=== PATIENT | female | born 1945 | race Two or more races ===

== ENCOUNTER 2019-03-17 00:16 | Inpatient (IN) | payer OTHER, BC ==
--- NOTE | 2019-03-17 01:53 | PDOC ---
Attending Attestation - Resident Resident Name: Mercy Samuel - ED Attending Attestation I have performed the following: I have examined & evaluated the patient, The case was reviewed & discussed with the resident, I agree w/resident's findings & plan - HPI HPI: 03/17/19 05:47 74-year-old female with altered mental status according to family. There is no known history of trauma. No associated fever. - Physicial Exam PE: 03/17/19 05:47 agree with residents exam - Medical Decision Making 03/17/19 05:48 74-year-old female with altered mental status Patient has an elevated troponin with no acute ST elevations on EKG CT scan of the brain shows multiple abnormal areas Neurology and neurosurgery are requesting an MRI to further evaluate At this time it is not safe to administer aspirin or anticoagulation due to possible hemorrhagic focus Patient remains alert and awake Will admit for further evaluation
[2019-03-17 02:08] LABS: HYALINE CASTS 0 /lpf (0-8); URINE APPEARANCE CLEAR; URINE BACTERIA 2.9 /hpf (NEGATIVE); URINE BILIRUBIN NEGATIVE (NEGATIVE); URINE COLOR YELLOW; URINE GLUCOSE (UA) NEGATIVE (NEGATIVE); URINE KETONE NEGATIVE (NEGATIVE); URINE LEUK ESTERASE TRACE (NEGATIVE); URINE NITRITE NEGATIVE (NEGATIVE); URINE PROTEIN NEGATIVE (NEGATIVE); URINE RBC 5 /hpf (0-4); URINE UROBILINOGEN 0.2 mg/dL (0.2-1.0); URINE WBC 4 /hpf (0-5)
[2019-03-17 02:29] LABS: BASO % 1.4 % (0-2.0); EOS % 2.6 % (0-4.5); HEMATOCRIT 39.3 % (32.4-45.2); LYMPH % 18.2 % (8-40); MCH 30.2 pg (25.7-33.7); MEAN CELL VOLUME 91.4 fl (80-96); MEAN PLT VOLUME 8.3 fl (7.5-11.1); NEUT % 66.8 % (42.8-82.8); PLATELET COUNT 141 K/MM3 (134-434); RDW 13.5 % (11.6-15.6); WHITE BLOOD COUNT 9.3 K/mm3 (4.0-10.0)
[2019-03-17] MEDS ORDERED: SODIUM CHLORIDE 1,000 ML IV STA (02:33)
--- NOTE | 2019-03-17 02:33 | PDOC ---
History of Present Illness - General Chief Complaint: Altered Mental Status Stated Complaint: WEAKNESS Time Seen by Provider: 03/17/19 01:20 History Source: Patient, Family (sister) Exam Limitations: No Limitations - History of Present Illness Initial Comments: 03/17/19 02:29 74yo F with no significant PMH brought to ED by daughter for episode of confusion. Per sister, pt was at home and walked outside and stated that her phone was not working when it was. She also forgot how to make coffee when she usually makes it every morning. Sister states that pt has not been eating as much as she used to for the past few days. Pt states that she has lost her appetite recently. Has not had a bowel movement in 4 days. She has been having a dry cough and was given a 10d course of antibiotic that pt cannot recall the name of and she takes Zyrtec daily along with 81mg ASA, Vit D and fish oil. Denies fevers, chills, chest pain, sob, changes in vision, numbness/tingling, difficulty speaking, syncope, travel, sick contacts, urinary symptoms, flank pain, abdominal pain, n/v/d, headaches. PMD: Luz Marina PMH: see hpi PSH: none Meds: zyrtec, asa, fish oil, vit d Allergies: nkda Social: denies NIH Stroke Scale - Last Known Well Date/Time & Onset Date Last Known Well: 03/13/19 (unknown) Time Last Known Well: 00:00 (unknown) - Initial Evaluation Level of consciousness: Alert Ask patient the month and their age: Answers both correctly Ask patient to open & close eyes; make fist and let go: Obeys both correctly Best gaze (horizontal eye movement): Normal Visual field testing: Partial hemianopia Facial paresis (Show teeth/raise eyebrows/close eyes tight): Normal symmetrical movement Motor Function: Left Arm: Normal Motor Function: Right Arm: Normal (extends arm 90 (or 45) degrees for 10 seconds without drift Motor Function: Left Leg: Normal (extends leg 30 degrees for 5 seconds without drift) Motor Function: Right Leg: Normal (extends leg 30 degrees for 5 seconds without drift) Limb Ataxia: Present in one limb Sensory(Use pinprick test arms,legs,trunk,face/side to side): Normal Best language (Describe picture, name items, read sentences): No Aphasia Dysarthria (read several words): Normal articulation Extinction and Inattention: Inattention or extinction bilaterally to one of the sensory modalities - Total Score NIH Stroke Scale Score: 3 Past History - Past Medical History Allergies/Adverse Reactions: Allergies Allergy/AdvReac Type Severity Reaction Status Date / Time Penicillins Allergy Verified 03/17/19 02:45 Home Medications: Ambulatory Orders Aspirin [ASA -] 81 mg PO DAILY 03/17/19 COPD: No - Suicide/Smoking/Psychosocial Hx Smoking History: Unknown if ever smoked Review of Systems - Review of Systems Constitutional: Yes: Loss of Appetite HEENTM: No: Eye Pain, Blurred Vision, Double Vision, Difficulty Swallowing Respiratory: No: Cough, Shortness of Breath Cardiac (ROS): No: Chest Pain, Lightheadedness, Palpitations, Syncope ABD/GI: Yes: Poor Appetite. No: Constipated, Diarrhea, Nausea, Vomiting : No: Symptoms Reported Musculoskeletal: No: Symptoms Reported Integumentary: No: Symptoms Reported Neurological: Yes: Other (forgetfulness, confusion). No: Headache, Numbness, Paresthesia, Tingling, Unsteady Gait, Ataxia, Dizziness *Physical Exam - Vital Signs Last Vital Signs Temp Pulse Resp BP Pulse Ox 98.1 F 107 H 18 135/88 100 03/17/19 01:17 03/17/19 01:17 03/17/19 01:17 03/17/19 01:03/17/19 01:17 - Physical Exam General Appearance: Yes: Nourished, Appropriately Dressed. No: Apparent Distress HEENT: positive: EOMI, MYKE, Normal ENT Inspection, Other (L peripheral vision impaired) Neck: positive: Trachea midline, Supple. negative: Carotid bruit Respiratory/Chest: positive: Lungs Clear, Normal Breath Sounds Cardiovascular: positive: Regular Rhythm, Regular Rate, S1, S2. negative: Edema , JVD, Murmur Gastrointestinal/Abdominal: positive: Normal Bowel Sounds, Soft. negative: Tender Musculoskeletal: negative: CVA Tenderness Extremity: positive: Normal Capillary Refill, Normal Inspection, Pelvis Stable. 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 negative: Facial Droop, Sensory Deficit, Disoriented ED Treatment Course - LABORATORY CBC & Chemistry Diagram: 03/17/19 01:25 03/17/19 01:25 - ADDITIONAL ORDERS Additional order review: Laboratory Results 03/17/19 01:50 Urine Color Yellow Urine Appearance Clear Urine pH 6.0 Ur Specific [place] 1.007 L Urine Protein Negative Urine Glucose (UA) Negative Urine Ketones Negative Urine Blood 1+ H Urine Nitrite Negative Urine Bilirubin Negative Urine Urobilinogen 0.2 Ur Leukocyte Esterase Trace Urine WBC (Auto) 4 Urine RBC (Auto) 5 Urine Casts (Auto) 0 U Epithel Cells (Auto) 1.0 Urine Bacteria (Auto) 2.9 - RADIOLOGY Radiology Studies Ordered: Category Date Time Status HEAD CT WITHOUT CONTRAST [CT] Stat CT Scan 03/17/19 02:24 Ordered CHEST X-RAY PORTABLE* [RAD] Stat Radiology 03/17/19 02:24 Ordered Medical Decision Making - Medical Decision Making 03/17/19 02:32 74yo F with no significant PMH brought to ED by daughter for episode of confusion. Per daughter, pt was at home and walked outside and stated that her phone was not working when it was. She also forgot how to make coffee when she usually makes it every morning. Daughter states that pt has not been eating as much as she used to for the past few days. Pt states that she has lost her appetite recently. Has not had a bowel movement in 4 days. She has been having a dry cough and was given a 10d course of antibiotic that pt cannot recall the name of and she takes Zyrtec daily along with 81mg ASA, Vit D and fish oil. Denies fevers, chills, chest pain, sob, changes in vision, numbness/tingling, difficulty speaking, syncope, travel, sick contacts, urinary symptoms, flank pain, abdominal pain, n/v/d, headaches. Vitals: tachycardia PE: benign ddx includes but not limited to hypoglycemia, electrolyte/metabolic abnormality , malignancy/mass, encephalopathy, uti, pna -basic labs, trop -ekg, cxr, ct head -iv fluids 03/17/19 03:21 trop 1.8 EKG: nsr at 99. QTc 487. Q wave in I, II, aVL, aVF. TWI III. No SILVER or depressions CT head read pending. if negative for bleed, will give ASA. Will get rpt trop 03/17/19 03:28 CT: The ventricular system is midline and nondilated. The sulcal pattern is normal for the patient's age. There are geographic regions of edema in the right temporal lobe , right parietal lobe and left parietal lobe. Multiple acute to subacute infarcts or underlying lesions are considered. There is vague density in the posterior right parietal lobe, possibly hemorrhagic lesion but there is no focal hematoma. There is no extra-axial fluid collection or mass effect no skull fracture or skull lesion is identified. The visualized paranasal sinuses and mastoid air cells are clear. Will consult cardiology and neurology and neurosurgery 03/17/19 05:[address] Raines who recommended MRI w and w/o contrast. Same recommendation by neurology with head and neck mra. due to lesions possibly being hemorrhagic, will hold off on AC. Dr. Black recommends MRI and MRA Per cardiology, hold off on AC Will admit ICU *DC/Admit/Observation/Transfer Diagnosis at time of Disposition: Brain lesion - Discharge Dispostion Condition at time of disposition: Stable - Referrals - Patient Instructions - Post Discharge Activity
[2019-03-17 03:00] LABS: BILIRUBIN,TOTAL 0.5 mg/dL (0.2-1); BLOOD UREA NITROGEN 12.2 mg/dL (7-18); CALCIUM 8.4 mg/dL (8.5-10.1); CREATININE 0.8 mg/dL (0.55-1.3); MAGNESIUM 2.5 mg/dL (1.8-2.4); POTASSIUM 4.7 mmol/L (3.5-5.1); TOT PROT 7.4 g/dl (6.4-8.2)
--- NOTE | 2019-03-17 06:27 | HP ---
CHIEF COMPLAINT: AMS PCP: HISTORY OF PRESENT ILLNESS: Ms. Martinez is a 74yo female with hx of arrhythmia presents with AMS x 4 days. Her sister reports first noticing a change when talking to her on the phone 4 days ago. She said she was "acting weird." She was not having aphasia. The sister said she later had difficulty making coffee that she normally makes every morning. Per ED note, she had a decrease in appetite as well. She reports having bilateral upper arm pain intermittently and generalized weakness. She denies fever, chills, chest pain, headache, and vomiting. She reports seeing a doctor in [facility] for an irregular heart beat but is not currently being treated. She is not anti-coagulated. ER course was notable for: (1) EKG (2) Head CT Recent Travel: unknown PAST MEDICAL HISTORY: arrhythmia, unspecified PAST SURGICAL HISTORY: unknown Social History: Smoking: no Alcohol: no Drugs: no Family History: unknown Allergies Penicillins Allergy (Verified 03/17/19 02:45) HOME MEDICATIONS: REVIEW OF SYSTEMS CONSTITUTIONAL: Present: generalized weakness Absent: fever, chills, diaphoresis, malaise, loss of appetite, weight change HEENT: Present: visual changes Absent: rhinorrhea, nasal congestion CARDIOVASCULAR: Absent: chest pain, syncope, palpitations RESPIRATORY: Reports: shortness of breath Absent: cough GASTROINTESTINAL: Absent: nausea, vomiting GENITOURINARY: Absent: dysuria MUSCULOSKELETAL: present: myalgias Absent: arthralgia, joint swelling, back pain, neck pain SKIN: Absent: rash, itching, pallor HEMATOLOGIC/IMMUNOLOGIC: Absent: easy bleeding, easy bruising, lymphadenopathy, frequent infections ENDOCRINE: Absent: unexplained weight gain, unexplained weight loss, heat intolerance, cold intolerance NEUROLOGIC: Present: mental status changes Absent: headache, paresthesias, dizziness, unsteady gait, seizure, bladder or bowel incontinence PSYCHIATRIC: Absent: anxiety, depression, suicidal or homicidal ideation, hallucinations. PHYSICAL EXAMINATION Vital Signs - 24 hr 03/17/19 03/17/19 01:17 04:09 Temperature 98.1 F Pulse Rate 107 H Pulse Rate [ 98 H Apical] Respiratory 18 18 Rate Blood Pressure 135/88 Blood Pressure 144/87 [Right Arm] O2 Sat by Pulse 100 98 Oximetry (%) GENERAL: Awake, alert, and oriented to person, in no acute distress. HEAD: Normal with no signs of trauma. EYES: Pupils equal, round and reactive to light, extraocular movements intact, sclera anicteric, conjunctiva clear. No lid lag. EARS, NOSE, THROAT: Ears normal, nares patent. Moist mucous membranes. NECK: Normal range of motion, supple without masses. LUNGS: No wheezes, and no crackles. No accessory muscle use. HEART: regular rate, moderate systolic murmur ABDOMEN: non-distended MUSCULOSKELETAL: Normal range of motion at all joints. UPPER EXTREMITIES: warm, well-perfused. No cyanosis. No peripheral edema. LOWER EXTREMITIES: warm, well-perfused NEUROLOGICAL: partial left side hemiplegia, +5 strength UE and LE bilaterally PSYCHIATRIC: Cooperative. Good eye contact. Appropriate mood and affect. SKIN: Warm, dry, normal turgor, no rashes or lesions noted, normal capillary refill. Laboratory Results - last 24 hr 03/17/19 03/17/19 03/17/19 01:25 01:25 01:25 WBC 9.3 RBC 4.30 Hgb 13.0 Hct 39.3 MCV 91.4 MCH 30.2 MCHC 33.0 RDW 13.5 Plt Count 141 MPV 8.3 Absolute Neuts (auto) 6.2 Neutrophils % 66.8 Lymphocytes % 18.2 Monocytes % 11.0 H Eosinophils % 2.6 Basophils % 1.4 Nucleated RBC % 0 Sodium 139 Potassium 4.7 Chloride 106 Carbon Dioxide 26 Anion Gap 7 L BUN 12.2 Creatinine 0.8 Est GFR (CKD-EPI)AfAm 85.37 Est GFR (CKD-EPI)NonAf 73.65 Random Glucose 96 Calcium 8.4 L Magnesium 2.5 H Total Bilirubin 0.5 AST 53 H ALT 32 Alkaline Phosphatase 319 H Troponin I 1.80 H* Total Protein 7.4 Albumin 3.0 L Urine Color Urine Appearance Urine pH Ur Specific [place] Urine Protein Urine Glucose (UA) Urine Ketones Urine Blood Urine Nitrite Urine Bilirubin Urine Urobilinogen Ur Leukocyte Esterase Urine WBC (Auto) Urine RBC (Auto) Urine Casts (Auto) U Epithel Cells (Auto) Urine Bacteria (Auto) 03/17/19 03/17/19 01:50 05:22 WBC RBC Hgb Hct MCV MCH MCHC RDW Plt Count MPV Absolute Neuts (auto) Neutrophils % Lymphocytes % Monocytes % Eosinophils % Basophils % Nucleated RBC % Sodium Potassium Chloride Carbon Dioxide Anion Gap BUN Creatinine Est GFR (CKD-EPI)AfAm Est GFR (CKD-EPI)NonAf Random Glucose Calcium Magnesium Total Bilirubin AST ALT Alkaline Phosphatase Troponin I 1.73 H* Total Protein Albumin Urine Color Yellow Urine Appearance Clear Urine pH 6.0 Ur Specific [place] 1.007 L Urine Protein Negative Urine Glucose (UA) Negative Urine Ketones Negative Urine Blood 1+ H Urine Nitrite Negative Urine Bilirubin Negative Urine Urobilinogen 0.2 Ur Leukocyte Esterase Trace Urine WBC (Auto) 4 Urine RBC (Auto) 5 Urine Casts (Auto) 0 U Epithel Cells (Auto) 1.0 Urine Bacteria (Auto) 2.9 ASSESSMENT/PLAN: The patient is a 74yo female with PMH for arrthymia who presents with AMS that started 4 days ago. She is having some difficulty with orientation, not being able to recall year. She denies any known head injury or chest pain. Troponins are elevated 1.8-->1.73. CT showed bilateral infarct acute to subacute and left posterior frontal lobe hemorrhage. MRI STAT to complete imaging. Pt likely has a -fib as recalled by "irregular heart beat." This could have sent clots from LA to brain causing ischemia and then could have hemorrhaged because of small focus. She also has a systolic murmur which could be a valvular abnormality. Will get echo to confirm a-fib or other abnormality. -MRI -echo -continue trending trops -TSH -Mg -CBC -CMP -seizure precautions -vital signs every hour -atorvastatin 80mg -no anti-coagulation, no ASA -SCDs DVT prophylaxis -consult neuro -consult neurosurgery -consult cards -admit ICU FEN adjust fluids if CMP indicates nutrition will be assessed later Visit type - Emergency Visit Emergency Visit: Yes ED Registration Date: 03/17/19 Care time: The patient presented to the Emergency Department on the above date and was hospitalized for further evaluation of their emergent condition. - New Patient This patient is new to me today: Yes Date on this admission: 03/17/19 - Critical Care Critical Care patient: No ATTENDING PHYSICIAN STATEMENT I saw and evaluated the patient. I reviewed the resident's note and discussed the case with the resident. I agree with the resident's findings and plan as documented. SUBJECTIVE: OBJECTIVE: ASSESSMENT AND PLAN:
[2019-03-17] MEDS ORDERED: ATORVASTATIN CA 80 MG TABLET (FP) PO ONE (06:31)
[2019-03-17] MEDS ORDERED: ATORVASTATIN CA 40 MG TABLET (FP) ONE (06:34)
--- NOTE | 2019-03-17 06:39 | PN ---
Teaching Attending Note Name of Resident: Dolly Hassan ATTENDING PHYSICIAN STATEMENT I saw and evaluated the patient. I reviewed the resident's note and discussed the case with the resident. I agree with the resident's findings and plan as documented. SUBJECTIVE: Seen and examined; please see resident note for HPI/ROS/PMH/PSH/FH/SH. Briefly , this is a 74 y/o female presenting to the ER with weakness, tiredness, confusion, and unsteady gait since at least thursday. Found to have bilateral acute to subacute infarct vs. lesions with a ? small hemorrhagic focus in the posterior R-frontal lobe. She is also found to have a positive troponin; denies cardiac symptoms. ER spoke with neuro, nsgy, and CV. She hasn't been admitted here before; daughter tells me she used to see a CV in [facility] for an 'irregular HR' and she does have a systolic murmur giving rise to question of valvular Afib? Not on AC. OBJECTIVE: NAD, AAOx2 (but will remember if prompted), resting in bed CN2-12 wnl, L-sided neglect noted with normal sensory and 5/5 strength all extremities. Word-finding difficulties and recall difficulties. Still alert and keenly responsive. RRR s1/2, moderate systolic murmur Lungs CTAB, w/ sym exp NT ND +BS Normal mood, appropriate behavior EKG reviewed; q-waves, nonspecific ST-T changes noted CT head prelim report discussed Labs reviewed in depth. ASSESSMENT AND PLAN: Patient presents with confusion, odd behavior found to have b/l acute to subacute infarcts with ?hemorrhagic focus alongside + troponin,. # B/L Acute/Subacute CVA +/- hemorrhagic focus # Troponemia # Systolic Murmur # Elevated Alk Phos -Will admit to ICU; hourly neuro checks and seizure precautions. Checking brain /neck MRI/MRA, A1c, TSH. Echo pending. Avoiding all AC including ASA and chemical DVT px. 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 Given the murmur and history of 'irregular HR' per daughter I wonder if she had afib giving rise to the b/l infarcts. One could have converted to hemorrhagic given the small focus, but of course will defer to neurology/nsgy. Murmur noted; could be valvular? Giving statin. -ER spoke to CV; q-waves noted in inferior leads. Trend troponin, followup CV recs. No AC at this time. Serial EKG and monitor on telemetry. Check echo for wmas. No ac given hemorrhagic. -Check GGT given alk phos; if elevated recommend RUQ u/s. Full Code Consultants: PCCM, CV, Neuro, Nsgy Thank you, Dr. Raza, for allowing Jen to take part in the ongoing management of your patient. Critical Care time 60 mins.
--- NOTE | 2019-03-17 08:23 | CON.NEURO ---
Consult - History of Present Illness History of Present Illness: 74yo female with hx of arrhythmia presents with AMS x 4 days. Her sister reports first noticing a change when talking to her on the phone 4 days ago. She said she was "acting weird." She was not having aphasia. The sister said she later had difficulty making coffee that she normally makes every morning. Per ED note, she had a decrease in appetite as well. She reports having bilateral upper arm pain intermittently and generalized weakness. She denies fever, chills, chest pain, headache, and vomiting. She reports seeing a doctor in [facility] for an irregular heart beat but is not currently being treated. She is not anti-coagulated. CH XRY -P CT HD : prelim BL P/O and R cerebellar hypoattenutaion suggestion of acute subacute infarction vs less likely vasogenic edema--await official MRI : Impression. Subacute enhancing infarct superior aspect of the right cerebellum. Acute cortical infarcts are observed in the right temporal temporal lobe, occipital lobe, to a lesser degree, left parietal lobe, left posterior temporal lobe, occipital lobe with restrictive changes on diffusion weighted weighted images, corresponding low signal intensity on the ADC, increased signal intensity of the strokes on the T2, FLAIR [place] - different vascular territories. Clinically correlate for vasculitis. MRA Impression. There is no evidence of aneurysm, vascular malformation or flow limiting stenosis. Impression. Patent common, internal, external carotid arteries, vertebral arteries, forming patent basilar artery.. Normal bifurcation of the common carotid arteries no stenotic lesions are seen. - Smoking History Smoking history: Unknown if ever smoked Home Medications - Allergies Allergies/Adverse Reactions: Allergies Allergy/AdvReac Type Severity Reaction Status Date / Time Penicillins Allergy Verified 03/17/19 02:45 - Home Medications Home Medications: Ambulatory Orders Aspirin [ASA -] 81 mg PO DAILY 03/17/19 Physical Exam-Neuro Vital Signs: Vital Signs Temperature 98.2 F 03/17/19 07:22 Pulse Rate 88 03/17/19 07:22 Respiratory Rate 16 03/17/19 07:22 Blood Pressure 119/75 03/17/19 07:22 O2 Sat by Pulse Oximetry (%) 98 03/17/19 07:22 - Neuro Exam Level Of Consciousness: Yes: Alert (awake, alert, Left sided field cut, left sided neglect, mild left UE drift , ) NIH Stroke Scale - Last Known Well Date/Time & Onset Date Last Known Well: 03/13/19 - Initial Evaluation Level of consciousness: Alert Ask patient the month and their age: Answers both correctly Ask patient to open & close eyes; make fist and let go: Obeys both correctly Best gaze (horizontal eye movement): Normal Visual field testing: Complete hemianopia Facial paresis (Show teeth/raise eyebrows/close eyes tight): Normal symmetrical movement Motor Function: Left Arm: Drift Motor Function: Right Arm: Normal (extends arm 90 (or 45) degrees for 10 seconds without drift Motor Function: Left Leg: Normal (extends leg 30 degrees for 5 seconds without drift) Motor Function: Right Leg: Normal (extends leg 30 degrees for 5 seconds without drift) Limb Ataxia: No ataxia Sensory(Use pinprick test arms,legs,trunk,face/side to side): Mild to moderate decrease in sensation Best language (Describe picture, name items, read sentences): No Aphasia Dysarthria (read several words): Normal articulation Extinction and Inattention: Inattention or extinction bilaterally to one of the sensory modalities - Total Score NIH Stroke Scale Score: 5 Imaging - Results Cat Scan: Image Reviewed MRI: Report Reviewed, Image Reviewed Problem List - Problems (1) Cerebrovascular accident (CVA) Code(s): I63.9 - CEREBRAL INFARCTION, UNSPECIFIED (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 Her sister reports first noticing a change when talking to her on the phone 4 days ago. She said she was "acting weird." She was not having aphasia. The sister said she later had difficulty making coffee that she normally makes every morning. Per ED note, she had a decrease in appetite as well. She reports having bilateral upper arm pain intermittently and generalized weakness. She denies fever, chills, chest pain, headache, and vomiting. She reports seeing a doctor in [facility] for an irregular heart beat but is not currently being treated. She is not anti-coagulated. CH XRY -P CT HD : prelim BL P/O and R cerebellar hypoattenutaion suggestion of acute subacute infarction vs less likely vasogenic edema--await official MRI : Impression. Subacute enhancing infarct superior aspect of the right cerebellum. Acute cortical infarcts are observed in the right temporal temporal lobe, occipital lobe, to a lesser degree, left parietal lobe, left posterior temporal lobe, occipital lobe with restrictive changes on diffusion weighted weighted images, corresponding low signal intensity on the ADC, increased signal intensity of the strokes on the T2, FLAIR [place] - different vascular territories. Clinically correlate for vasculitis. MRA Impression. There is no evidence of aneurysm, vascular malformation or flow limiting stenosis. Impression. Patent common, internal, external carotid arteries, vertebral arteries, forming patent basilar artery.. Normal bifurcation of the common carotid arteries no stenotic lesions are seen. 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
[2019-03-17 08:31] LABS: HEMOGLOBIN 12.4 GM/dL (10.7-15.3); MCH 30.7 pg (25.7-33.7); MCHC 33.5 g/dl (32.0-36.0); MEAN CELL VOLUME 91.4 fl (80-96); MEAN PLT VOLUME 7.7 fl (7.5-11.1); PLATELET COUNT 133 K/MM3 (134-434); RBC 4.05 M/mm3 (3.60-5.2); RDW 13.1 % (11.6-15.6); WHITE BLOOD COUNT 8.6 K/mm3 (4.0-10.0)
[2019-03-17 09:01] LABS: BILIRUBIN,TOTAL 0.4 mg/dL (0.2-1); BLOOD UREA NITROGEN 10.7 mg/dL (7-18); CALCIUM 8.5 mg/dL (8.5-10.1); CREATININE 0.7 mg/dL (0.55-1.3); MAGNESIUM 2.5 mg/dL (1.8-2.4); POTASSIUM 3.9 mmol/L (3.5-5.1)
--- NOTE | 2019-03-17 09:20 | CONSULT ---
Consultation: CONSULT SERVICE: ICU Resident HISTORY OF PRESENT ILLNESS: 74yo F w/ reportedly "irregular" rhythm who presents yesterday with notable confusion for about 1-2 hours. Pt reports she was holding her phone and suddenly forgot how to use it. In addition, she was talking about how her phone was shut off, but her sister notes the phone was working perfectly. When her neighbour arrived to bring her to a hospital, the patient forgot how to use a car door. She did not feel any weakness or sensation disturbances at this time. REVIEW OF SYSTEMS: As per HPI PHYSICAL EXAMINATION Vital Signs 03/17/19 03/17/19 03/17/19 01:17 04:09 07:22 Temperature 98.1 F 98.2 F Pulse Rate 107 H Pulse Rate [ 98 H 88 Apical] Respiratory 18 18 16 Rate Blood Pressure 135/88 Blood Pressure 144/87 119/75 [Right Arm] O2 Sat by Pulse 100 98 98 Oximetry (%) GENERAL: NAD, Awake, alert, and fully oriented HEENT: NC/AT, EOMI, SCOOTER, sclera anicteric, MMM NECK: Supple, no JVD, no masses LUNGS: CTA bilaterally. No wheezes, and no crackles. No accessory muscle use. HEART: RRR, normal S1 and S2 with 2/6 diastolic murmur heard at RUSB ABDOMEN: Soft, NT/ND, normoactive bowel sounds, no guarding EXTREMITIES: 2+ distal pulses b/l, warm, well-perfused. No calf tenderness. No peripheral edema. NEUROLOGICAL: Questionable softening of left nasolabial fold, however rest of CN's intact. Strength 5/5 throughout entire exam. Sensation intact. No dysmetria , no dysdiadocokinesia, speech normal, gait normal. Reflexes 2/4 in patellar and biceps PSYCHIATRIC: Cooperative. Good eye contact. Appropriate mood and affect. SKIN: Warm, dry, no rashes or lesions noted. Laboratory Results - last 24 hr 03/17/19 03/17/19 03/17/19 01:25 01:25 01:25 WBC 9.3 RBC 4.30 Hgb 13.0 Hct 39.3 MCV 91.4 MCH 30.2 MCHC 33.0 RDW 13.5 Plt Count 141 MPV 8.3 Absolute Neuts (auto) 6.2 Neutrophils % 66.8 Lymphocytes % 18.2 Monocytes % 11.0 H Eosinophils % 2.6 Basophils % 1.4 Nucleated RBC % 0 Sodium 139 Potassium 4.7 Chloride 106 Carbon Dioxide 26 Anion Gap 7 L BUN 12.2 Creatinine 0.8 Est GFR (CKD-EPI)AfAm 85.37 Est GFR (CKD-EPI)NonAf 73.65 Random Glucose 96 Calcium 8.4 L Magnesium 2.5 H Total Bilirubin 0.5 GGT AST 53 H ALT 32 Alkaline Phosphatase 319 H Troponin I 1.80 H* Total Protein 7.4 Albumin 3.0 L Triglycerides Cholesterol Total LDL Cholesterol HDL Cholesterol TSH Urine Color Urine Appearance Urine pH Ur Specific [place] Urine Protein Urine Glucose (UA) Urine Ketones Urine Blood Urine Nitrite Urine Bilirubin Urine Urobilinogen Ur Leukocyte Esterase Urine WBC (Auto) Urine RBC (Auto) Urine Casts (Auto) U Epithel Cells (Auto) Urine Bacteria (Auto) 03/17/19 03/17/19 03/17/19 01:50 05:22 07:55 WBC 8.6 RBC 4.05 Hgb 12.4 Hct 37.0 MCV 91.4 MCH 30.7 MCHC 33.5 RDW 13.1 Plt Count 133 L MPV 7.7 Absolute Neuts (auto) Neutrophils % Lymphocytes % Monocytes % Eosinophils % Basophils % Nucleated RBC % Sodium Potassium Chloride Carbon Dioxide Anion Gap BUN Creatinine Est GFR (CKD-EPI)AfAm Est GFR (CKD-EPI)NonAf Random Glucose Calcium Magnesium Total Bilirubin GGT AST ALT Alkaline Phosphatase Troponin I 1.73 H* Total Protein Albumin Triglycerides Cholesterol Total LDL Cholesterol HDL Cholesterol TSH Urine Color Yellow Urine Appearance Clear Urine pH 6.0 Ur Specific [place] 1.007 L Urine Protein Negative Urine Glucose (UA) Negative Urine Ketones Negative Urine Blood 1+ H Urine Nitrite Negative Urine Bilirubin Negative Urine Urobilinogen 0.2 Ur Leukocyte Esterase Trace Urine WBC (Auto) 4 Urine RBC (Auto) 5 Urine Casts (Auto) 0 U Epithel Cells (Auto) 1.0 Urine Bacteria (Auto) 2.9 03/17/19 07:55 WBC RBC Hgb Hct MCV MCH MCHC RDW Plt Count MPV Absolute Neuts (auto) Neutrophils % Lymphocytes % Monocytes % Eosinophils % Basophils % Nucleated RBC % Sodium 140 Potassium 3.9 Chloride 106 Carbon Dioxide 28 Anion Gap 6 L BUN 10.7 Creatinine 0.7 Est GFR (CKD-EPI)AfAm 100.32 Est GFR (CKD-EPI)NonAf 86.56 Random Glucose 93 Calcium 8.5 Magnesium 2.5 H Total Bilirubin 0.4 GGT 88 H AST 38 H ALT 30 Alkaline Phosphatase 315 H Troponin I Total Protein 7.0 Albumin 3.0 L Triglycerides 138 Cholesterol 234 H Total LDL Cholesterol 159 H HDL Cholesterol 49 TSH 6.37 H Urine Color Urine Appearance Urine pH Ur Specific [place] Urine Protein Urine Glucose (UA) Urine Ketones Urine Blood Urine Nitrite Urine Bilirubin Urine Urobilinogen Ur Leukocyte Esterase Urine WBC (Auto) Urine RBC (Auto) Urine Casts (Auto) U Epithel Cells (Auto) Urine Bacteria (Auto) Active Medications Generic Name Dose Route Start Last Admin Trade Name Freq PRN Reason Stop Dose Admin Atorvastatin Calcium 80 mg 03/18/19 22:00 Lipitor - PO HS SALO ASSESSMENT/PLAN: Hemorrhagic CVA ? Arrythmia Mixed hyperlipidemia Elevated troponins --CT showing quesitonable 11mm of hemorrhagic conversion with multi-infarcts --likely multiple thrombo-embolic events --Continue cardiac monitoring; currently sinus tachycardia without alarms --Carotid US --MRI/MRA ordered and to be done today; if cannot be done will get interval CT for change in hemorrhagic conversion --Will give Ativan 1mg PO due to severe claustrophobia in patient --Physical therapy ordered --HOB elevated 30* --Will hold off on ASA at this time due to hemorrhagic conversion --BP goal 140 systolics to control bleeding and maintain cerebral perfusion --Continue Lipitor 80 PO HS --Troponins likely demand and already trending down FEN: Fluids: Avoid Electrolyte abnormalities: None Nutrition: Bedside swallow to assess and can advance; speech and swallow consult also ordered PPX: DVT - SCDs only GI - not indicated at this time Dispo: ICU monitoring Case discussed with Dr. Marlon Lopez, DO - IM PGY-3 Visit type - Emergency Visit Emergency Visit: Yes ED Registration Date: 03/17/19 Care time: The patient presented to the Emergency Department on the above date and was hospitalized for further evaluation of their emergent condition. - New Patient This patient is new to me today: Yes Date on this admission: 03/17/19 - Critical Care Critical Care patient: Yes Total Critical Care Time (in minutes): 35 Critical Care Statement: The care of this patient involved high complexity decision making to prevent further life threatening deterioration of the patient 's condition and/or to evaluate & treat vital organ system(s) failure or risk of failure. ATTENDING PHYSICIAN STATEMENT I saw and evaluated the patient. I reviewed the resident's note and discussed the case with the resident. I agree with the resident's findings and plan as documented. SUBJECTIVE: OBJECTIVE: ASSESSMENT AND PLAN:
--- NOTE | 2019-03-17 10:59 | PN ---
Progress Note (short form) - Note Progress Note: Coverage for Dr Raza Events noted Sister at bedside Pt is speaking clear, makes sense Moves all extremities no headaches Vital Signs - 24 hr 03/17/19 03/17/19 03/17/19 01:17 04:09 07:22 Temperature 98.1 F 98.2 F Pulse Rate 107 H Pulse Rate [ 98 H 88 Apical] Respiratory 18 18 16 Rate Blood Pressure 135/88 Blood Pressure 144/87 119/75 [Right Arm] O2 Sat by Pulse 100 98 98 Oximetry (%) 03/17/19 03/17/19 03/17/19 09:09 09:32 09:39 Temperature 99.2 F 99.2 F Pulse Rate 104 H 104 H Pulse Rate [ Apical] Respiratory 17 17 Rate Blood Pressure 142/81 142/81 Blood Pressure [Right Arm] O2 Sat by Pulse 98 Oximetry (%) Current Medications Generic Name Dose Route Start Last Admin Trade Name Freq PRN Reason Stop Dose Admin Atorvastatin Calcium 80 mg 03/18/19 22:00 Lipitor - PO HS [facility] Laboratory Results - last 24 hr 03/17/19 03/17/19 03/17/19 01:25 01:25 01:25 WBC 9.3 RBC 4.30 Hgb 13.0 Hct 39.3 MCV 91.4 MCH 30.2 MCHC 33.0 RDW 13.5 Plt Count 141 MPV 8.3 Absolute Neuts (auto) 6.2 Neutrophils % 66.8 Lymphocytes % 18.2 Monocytes % 11.0 H Eosinophils % 2.6 Basophils % 1.4 Nucleated RBC % 0 Sodium 139 Potassium 4.7 Chloride 106 Carbon Dioxide 26 Anion Gap 7 L BUN 12.2 Creatinine 0.8 Est GFR (CKD-EPI)AfAm 85.37 Est GFR (CKD-EPI)NonAf 73.65 Random Glucose 96 Hemoglobin A1c % Calcium 8.4 L Magnesium 2.5 H Total Bilirubin 0.5 GGT AST 53 H ALT 32 Alkaline Phosphatase 319 H Troponin I 1.80 H* Total Protein 7.4 Albumin 3.0 L Triglycerides Cholesterol Total LDL Cholesterol HDL Cholesterol TSH Urine Color Urine Appearance Urine pH Ur Specific [place] Urine Protein Urine Glucose (UA) Urine Ketones Urine Blood Urine Nitrite Urine Bilirubin Urine Urobilinogen Ur Leukocyte Esterase Urine WBC (Auto) Urine RBC (Auto) Urine Casts (Auto) U Epithel Cells (Auto) Urine Bacteria (Auto) 03/17/19 03/17/19 03/17/19 01:50 05:22 07:22 WBC RBC Hgb Hct MCV MCH MCHC RDW Plt Count MPV Absolute Neuts (auto) Neutrophils % Lymphocytes % Monocytes % Eosinophils % Basophils % Nucleated RBC % Sodium Potassium Chloride Carbon Dioxide Anion Gap BUN Creatinine Est GFR (CKD-EPI)AfAm Est GFR (CKD-EPI)NonAf Random Glucose Hemoglobin A1c % 5.9 Calcium Magnesium Total Bilirubin GGT AST ALT Alkaline Phosphatase Troponin I 1.73 H* Total Protein Albumin Triglycerides Cholesterol Total LDL Cholesterol HDL Cholesterol TSH Urine Color Yellow Urine Appearance Clear Urine pH 6.0 Ur Specific [place] 1.007 L Urine Protein Negative Urine Glucose (UA) Negative Urine Ketones Negative Urine Blood 1+ H Urine Nitrite Negative Urine Bilirubin Negative Urine Urobilinogen 0.2 Ur Leukocyte Esterase Trace Urine WBC (Auto) 4 Urine RBC (Auto) 5 Urine Casts (Auto) 0 U Epithel Cells (Auto) 1.0 Urine Bacteria (Auto) 2.9 03/17/19 03/17/19 07:55 07:55 WBC 8.6 RBC 4.05 Hgb 12.4 Hct 37.0 MCV 91.4 MCH 30.7 MCHC 33.5 RDW 13.1 Plt Count 133 L MPV 7.7 Absolute Neuts (auto) Neutrophils % Lymphocytes % Monocytes % Eosinophils % Basophils % Nucleated RBC % Sodium 140 Potassium 3.9 Chloride 106 Carbon Dioxide 28 Anion Gap 6 L BUN 10.7 Creatinine 0.7 Est GFR (CKD-EPI)AfAm 100.32 Est GFR (CKD-EPI)NonAf 86.56 Random Glucose 93 Hemoglobin A1c % Calcium 8.5 Magnesium 2.5 H Total Bilirubin 0.4 GGT 88 H AST 38 H ALT 30 Alkaline Phosphatase 315 H Troponin I Total Protein 7.0 Albumin 3.0 L Triglycerides 138 Cholesterol 234 H Total LDL Cholesterol 159 H HDL Cholesterol 49 TSH 6.37 H Urine Color Urine Appearance Urine pH Ur Specific [place] Urine Protein Urine Glucose (UA) Urine Ketones Urine Blood Urine Nitrite Urine Bilirubin Urine Urobilinogen Ur Leukocyte Esterase Urine WBC (Auto) Urine RBC (Auto) Urine Casts (Auto) U Epithel Cells (Auto) Urine Bacteria (Auto) S1 S2 RRR, systolic murmur aortic area Lungs clear Abd- soft, NT no edema strength 5/5 both upper and lower extremities no facial droop PLAN CT head noted no anticoagulation Tele-- sinus tachycardia awaiting MRA/MRA brain Neurology eval check echo troponins trending down Problem List - Problems (1) Cerebrovascular accident (CVA) Code(s): I63.9 - CEREBRAL INFARCTION, UNSPECIFIED (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
--- NOTE | 2019-03-17 11:11 | CON.CARD ---
Consult Consult Specialty:: Cardiology - History of Present Illness Chief Complaint: Elevated TP/Stroke History of Present Illness: 74 F with a history of "irregular heart beat" (reported over 20 yrs ago) was admitted yesterday with confusion and found to have bilateral CVAs. Labs show elevated TP>1. There is no previous ho CAD. She reports no chest pain, palpitations or TURNER. - History Source History Provided By: Patient, Family Member, Medical Record Limitations to Obtaining History: No Limitations - Past Medical History ...: No - Alcohol/Substance Use Hx Alcohol Use: No - Smoking History Smoking history: Unknown if ever smoked Have you smoked in the past 12 months: No Home Medications - Allergies Allergies/Adverse Reactions: Allergies Allergy/AdvReac Type Severity Reaction Status Date / Time Penicillins Allergy Verified 03/17/19 02:45 - Home Medications Home Medications: Ambulatory Orders Aspirin [ASA -] 81 mg PO DAILY 03/17/19 Review of Systems - Review of Systems Constitutional: reports: No Symptoms Eyes: reports: No Symptoms HENT: reports: No Symptoms Neck: reports: No Symptoms Cardiovascular: reports: No Symptoms Respiratory: reports: No Symptoms Gastrointestinal: reports: No Symptoms Vital Signs: Vital Signs Temperature 99.2 F 03/17/19 09:32 Pulse Rate 96 H 03/17/19 11:00 Respiratory Rate 16 03/17/19 11:00 Blood Pressure 132/76 03/17/19 11:00 O2 Sat by Pulse Oximetry (%) 98 03/17/19 09:39 Constitutional: Yes: Well Nourished, No Distress, Calm Eyes: Yes: Conjunctiva Clear, EOM Intact HENT: Yes: Atraumatic, Normocephalic Neck: Yes: Supple, Trachea Midline Respiratory: Yes: Regular, CTA Bilaterally Gastrointestinal: Yes: Normal Bowel Sounds, Soft Cardiovascular: Yes: Regular Rate and Rhythm JVD: No Carotid Bruit: No PMI: Non-Displaced Heart Sounds: Yes: S1, S2 Murmur: No: Systolic Murmur, Diastolic Murmur Edema: No - Other Data Labs, Other Data: CBC, BMP 03/17/19 07:55 03/17/19 07:55 Troponin, BNP 03/17/19 03/17/19 01:25 05:22 Troponin I 1.80 H* 1.73 H* Troponin, BNP 03/17/19 03/17/19 01:25 05:22 Troponin I 1.80 H* 1.73 H* Laboratory Tests 03/17/19 07:55 TSH 6.37 H Imaging - Results EKG: Image Reviewed (NSR old IWMI old lateral MN) Problem List - Problems (1) NSTEMI (non-ST elevated myocardial infarction) Code(s): I21.4 - NON-ST ELEVATION (NSTEMI) MYOCARDIAL INFARCTION (2) Cerebrovascular accident (CVA) Code(s): I63.9 - CEREBRAL INFARCTION, UNSPECIFIED Assessment/Plan Suspect cardio-embolic stroke. Continue telemetry-if normal tele, will plan for out patient holter or implantable loop recorder. Follow up echocardiogram results. -Check Free T4 level Continue statin. -If no contraindications by neurology would load with ASA 162mg x [address] on ASA 81 mg qd. -Will order bubble study -Lower extremity doppler to RO DVT Elevated TP in the setting of CVA with evidence of Qs on ECG may suggest cardioembolic showring tothe coronaries, NSTEMI in the setting of sig illness or demand ischemia. Will manage medically at this time. Permissive HTN at this time but will eventtually consider adding Beta blockers. -Please follow serial CPK level.
--- NOTE | 2019-03-17 11:18 | PN ---
Teaching Attending Note Name of Resident: Mark Lopez ATTENDING PHYSICIAN STATEMENT I saw and evaluated the patient. I reviewed the resident's note and discussed the case with the resident. I agree with the resident's findings and plan as documented. SUBJECTIVE: Pt seen and examined in the ICU. Mental status improving per sister at bedside. No headache. No focal deficits at this time. OBJECTIVE: Vital Signs Period Temp Pulse Resp BP Sys/Gay Pulse Ox Last 24 Hr 98.1 F-99.2 F 88-107 16-18 119-144/75-88 98-100 Intake & Output 03/14/19 03/15/19 03/16/19 03/17/19 23:59 23:59 23:59 23:59 Weight 60.237 kg Gen: NAD at rest Heart: RRR Lung: decreased breath sounds at the bases Abd: soft, nontender Ext: no edema CBC, BMP 03/17/19 07:55 03/17/19 07:55 Active Medications Atorvastatin Calcium (Lipitor -) 80 mg PO HS SALO Lorazepam (Ativan -) 1 mg PO ONCE ONE Stop: 03/17/19 12:01 ASSESSMENT AND PLAN: Acute CVA likely embolic Intracranial Hemorrhage +Troponins likely Demand Ischemia h/o Valvular Disease - neuro checks - ASA when ok with neuro - statin - echocardiogram - carotid dopplers - MRI brain - DVT prophylaxis - continue ICU monitoring
[2019-03-17] MEDS ORDERED: LORazepam 1 MG TABLET PO ONE (12:00)
--- NOTE | 2019-03-17 14:46 | PN ---
Progress Note, HAND BANDER - Note Progress Note: Consultation received. Pt presents as a 74yo female with hx of arrhythmia presents with AMS possible stroke. HAND BANDER attempted to evaluate pt for swallow status but pt was sent for MRI. Once pt returned, she was somewhat sedated. staff command and control officer reports that pt recently given Ativan. staff command and control officer also report the pt did pass the dysphagia screen without s/s of aspiration. HAND BANDER will return again at another time to evaluate swallow status.
--- NOTE | 2019-03-17 15:38 | CONSULT ---
Consult - text type - Consultation Consultation Note: NEUROSURGERY CONSULTATION Ally Martinez is a 74 year old female who was in her usual state of good health until 5 days ago. She was noted to be unwell in terms of reduced appetite and speaking in a different manner as perceived by her family. Her daughter brought her to the [facility] ER on the evening of March 16, [address] without contrast demonstrated multiple foci of hypodensity with some small patchy areas of increased density. These lesions were in the posterior circulation territories primarily in the parietal and occipital lobes. Differential diagnosis included emboli versus ischemia versus metastases. The patien twas admitted to the ICU and MRI was obtained. Preliminary impression is that these lesions represent infarcts, not tumors. Given the distribution of the infarcts, posterior circulation disruption is considered. She has a remote history of arrhythmia which raises consideration for emboli. She has been in sinus rhythm during this hospitalization. At this point, no acute Neurosurgical intervention is indicated or planned. Agree with suggestions from Dr. Dwyer regarding ASA. Will await formal MRI/MRA results and will defer to Dr. Black regarding management of what appears to be primarily a stroke phenomenon. will follow GI/DVT prophylaxis
--- NOTE | 2019-03-17 16:03 | ECHO ---
Name: KRISTISHARYN J Exam:Adult Echocardiogram Study Date: 03/17/2019 10:47 AM Age: 74 yrs Reason For Study: CVA Height: 65 in Weight: 132 lb BSA: 1.7 m2 MMode/2D Measurements & Calculations IVSd: 0.87 cm Ao root diam: 2.7 cm LVIDd: 3.5 cm LA dimension: 2.7 cm LVIDs: 2.1 cm LVPWd: 0.90 cm EDV(Teich): 49.4 ml LVOT diam: 2.0 cm ESV(Teich): 14.2 ml LAV (MOD-bp): 18.7 ml Doppler Measurements & Calculations MV E max ede: 70.3 cm/sec Ao V2 max: 162.9 cm/sec MV A max ede: 129.0 cm/sec Ao max P.6 mmHg MV E/A: 0.54 AI P1/2t: 396.1 msec MV dec time: 0.09 sec AYDE(V,D): 2.5 cm2 AI max ede: 165.6 cm/sec LV V1 max P.6 mmHg AI max P.0 mmHg LV V1 max: 128.1 cm/sec AI dec slope: 122.5 cm/sec2 MR max ede: 469.6 cm/sec TR max ede: 246.4 cm/sec MR max P.8 mmHg TR max P.3 mmHg PA V2 max: 99.1 cm/sec Med Peak E' Ede: 5.4 cm/sec PA max P.9 mmHg Med E/e': 12.9 Lat Peak E' Ede: 8.3 cm/sec Lat E/e': 8.5 PI Vmax: 138.5 cm/sec Procedure A complete two-dimensional transthoracic echocardiogram was performed (2D, M-mode, Doppler and color flow Doppler). Left Ventricle The left ventricular size, thickness and function are normal. The left ventricular ejection fraction is normal. Ejection Fraction = 60-65%. The left ventricular wall motion is normal. Right Ventricle The right ventricle is normal in size and function. Atria Normal left and right atrial size and function. Mitral Valve There is no mitral regurgitation noted. Tricuspid Valve There is trace tricuspid regurgitation. There was insufficient TR detected to calculate RV systolic p ressure. Aortic Valve No hemodynamically significant valvular aortic stenosis. No aortic regurgitation is present. Pulmonic Valve There is no pulmonic valvular regurgitation. Great Vessels The aortic root is normal size. Pericardium/Pleura There is no pericardial effusion. Interpretation Summary The left ventricular size, thickness and function are normal The right ventricle is normal in size and function. There is trace tricuspid regurgitation. MD Colten Stuart 03/17/2019 04:03 PM
--- NOTE | 2019-03-17 17:11 | EKG ---
Test Reason : Blood Pressure : / mmHG Vent. Rate : 099 BPM Atrial Rate : 099 BPM P-R Int : 156 ms QRS Dur : 088 ms QT Int : 380 ms P-R-T Axes : 049 -09 017 degrees QTc Int : 487 ms NORMAL SINUS RHYTHM POSSIBLE LEFT ATRIAL ENLARGEMENT LATERAL INFARCT , AGE UNDETERMINED INFERIOR INFARCT , AGE UNDETERMINED ABNORMAL ECG NO PREVIOUS ECGS AVAILABLE Confirmed by LISSETT HUTSON MD ([id number]) on 03/17/2019 5:11:44 PM Referred By: Confirmed By:LISSETT HUTSON MD
[2019-03-17] MEDS: ASPIRIN 325 MG TABLET PO SCH (18:36)
[2019-03-17] MEDS: LACTATED RINGERS SOLUTION 1,000 ML/1,000 ML INFUS.BAG IV SCH (21:57)
--- NOTE | 2019-03-18 07:14 | PN ---
Physical Exam: SUBJECTIVE: No acute events overnight. ASA was started yesterday given lack of hemorrhage on MRI after discussing with neurosurgery and cardiology. Pt has no complaints today. No weakness or episodes of confusion were noted by patient overnight. OBJECTIVE: Vital Signs Period Temp Pulse Resp BP Sys/Gay Pulse Ox Last 24 Hr 98.2 F-99.9 F 88-109 15-24 92-142/55-81 98-98 GENERAL: NAD, Awake, alert, and fully oriented HEENT: NC/AT, EOMI, SCOOTER, sclera anicteric, MMM NECK: Supple, no JVD, no masses LUNGS: CTA bilaterally. No wheezes, and no crackles. No accessory muscle use. HEART: RRR, normal S1 and S2 with 2/6 diastolic murmur heard at RUSB ABDOMEN: Soft, NT/ND, normoactive bowel sounds, no guarding EXTREMITIES: 2+ distal pulses b/l, warm, well-perfused. No calf tenderness. No peripheral edema. NEUROLOGICAL: Facial softening resolved today. Strength 5/5 throughout entire exam. Sensation intact. No dysmetria, no dysdiadocokinesia, speech normal, gait normal. PSYCHIATRIC: Cooperative. Good eye contact. Appropriate mood and affect. SKIN: Warm, dry, no rashes or lesions noted. Laboratory Results - last 24 hr 03/17/19 03/17/19 03/17/19 07:22 07:55 07:55 WBC 8.6 RBC 4.05 Hgb 12.4 Hct 37.0 MCV 91.4 MCH 30.7 MCHC 33.5 RDW 13.1 Plt Count 133 L MPV 7.7 Sodium 140 Potassium 3.9 Chloride 106 Carbon Dioxide 28 Anion Gap 6 L BUN 10.7 Creatinine 0.7 Est GFR (CKD-EPI)AfAm 100.32 Est GFR (CKD-EPI)NonAf 86.56 Random Glucose 93 Hemoglobin A1c % 5.9 Calcium 8.5 Magnesium 2.5 H Total Bilirubin 0.4 GGT 88 H AST 38 H ALT 30 Alkaline Phosphatase 315 H C-Reactive Protein Total Protein 7.0 Albumin 3.0 L Triglycerides 138 Cholesterol 234 H Total LDL Cholesterol 159 H HDL Cholesterol 49 TSH 6.37 H 03/17/19 20:35 WBC RBC Hgb Hct MCV MCH MCHC RDW Plt Count MPV Sodium Potassium Chloride Carbon Dioxide Anion Gap BUN Creatinine Est GFR (CKD-EPI)AfAm Est GFR (CKD-EPI)NonAf Random Glucose Hemoglobin A1c % Calcium Magnesium Total Bilirubin GGT AST ALT Alkaline Phosphatase C-Reactive Protein 7.3 H Total Protein Albumin Triglycerides Cholesterol Total LDL Cholesterol HDL Cholesterol TSH Active Medications Generic Name Dose Route Start Last Admin Trade Name Freq PRN Reason Stop Dose Admin Aspirin 325 mg 03/17/19 18:15 03/17/19 18:36 Asa - PO 325 mg DAILY SALO Administration Atorvastatin Calcium 80 mg 03/18/19 22:00 Lipitor - PO HS SALO Lactated Ringer's 1,000 ml in 1,000 mls @ 75 mls/hr 03/17/19 22:00 03/17/19 21:57 Lactated Ringers Solution IV 75 mls/hr ASDIR SALO Administration ASSESSMENT/PLAN: Hemorrhagic CVA ? Arrythmia Mixed hyperlipidemia Thyroid nodules and blastic bone lesions Elevated troponins --MRI/MRA without any hemorrhage noted and multiple likely embolic infarcts --Continue to maintain steady blood pressures --Continue ASA 81mg qdaily --Neurology on board and appreciated recommendations --Will add Plavix 75mg qdaily to regiment --Continue Lipitor 80 PO HS --Multiple infarcts likely --Will eventually need FRANKIE for r/o source of thrombus --Incidental thyroid nodules and blastic bone lesions on T1-T3 found on imaging --Will need thyroid US for further evaluation --Pt has not received age-appropriate cancer screening and recommend outpatient screening --Discussed with patient and family attending at bedside --Troponins likely demand and trending down --Cardiology on board and appreciated recommendations FEN: Fluids: Avoid Electrolyte abnormalities: None Nutrition: Passed S&S evaluation; fat-controlled diet PPX: DVT - SCDs only GI - not indicated at this time Dispo: Transfer to non-cardiac telemetry for CVA Case discussed with Dr. Alistair Lopez, DO - IM PGY-3 Visit type - Emergency Visit Emergency Visit: Yes ED Registration Date: 03/17/19 Care time: The patient presented to the Emergency Department on the above date and was hospitalized for further evaluation of their emergent condition. - New Patient This patient is new to me today: No - Critical Care Critical Care patient: Yes Total Critical Care Time (in minutes): 35 Critical Care Statement: The care of this patient involved high complexity decision making to prevent further life threatening deterioration of the patient 's condition and/or to evaluate & treat vital organ system(s) failure or risk of failure.
--- NOTE | 2019-03-18 09:15 | PN ---
Progress Note (short form) - Note Progress Note: Patient is stable in ICU. Awake and alert. No pronator drift, no new deficits. CTA Pending
--- NOTE | 2019-03-18 09:16 | PN ---
Progress Note (short form) - Note Progress Note: HPI : 03/17/19 74yo female with hx of arrhythmia presents with AMS x 4 days. Her sister reports first noticing a change when talking to her on the phone 4 days ago. She said she was "acting weird." She was not having aphasia. The sister said she later had difficulty making coffee that she normally makes every morning. Per ED note, she had a decrease in appetite as well. She reports having bilateral upper arm pain intermittently and generalized weakness. She denies fever, chills, chest pain, headache, and vomiting. She reports seeing a doctor in [facility] for an irregular heart beat but is not currently being treated. She is not anti-coagulated. CT HD : prelim BL P/O and R cerebellar hypoattenutaion suggestion of acute subacute infarction vs less likely vasogenic edema--await official MRI : Impression. Subacute enhancing infarct superior aspect of the right cerebellum. Acute cortical infarcts are observed in the right temporal temporal lobe, occipital lobe, to a lesser degree, left parietal lobe, left posterior temporal lobe, occipital lobe with restrictive changes on diffusion weighted weighted images, corresponding low signal intensity on the ADC, increased signal intensity of the strokes on the T2, FLAIR [place] - different vascular territories. Clinically correlate for vasculitis. MRA Impression. There is no evidence of aneurysm, vascular malformation or flow limiting stenosis. Impression. Patent common, internal, external carotid arteries, vertebral arteries, forming patent basilar artery.. Normal bifurcation of the common carotid arteries no stenotic lesions are seen. FU today: no issues overnight BP stable communicating well, daughter bedside ECHO noted-WNL , has been in sinus - Smoking History Smoking history: Unknown if ever smoked Home Medications - Allergies Allergies/Adverse Reactions: Allergies Allergy/AdvReac Type Severity Reaction Status Date / Time Penicillins Allergy Verified 03/17/19 02:45 - Home Medications Home Medications: Ambulatory Orders Aspirin [ASA -] 81 mg PO DAILY 03/17/19 Physical Exam-Neuro Vital Signs: Vital Signs Temperature 98.2 F 03/18/19 06:00 Pulse Rate 92 H 03/18/19 08:00 Respiratory Rate 22 H 03/18/19 08:00 Blood Pressure 110/72 03/18/19 08:00 O2 Sat by Pulse Oximetry (%) 98 03/17/19 20:14 - Neuro Exam Level Of Consciousness: Yes: Alert (awake, alert, Left sided field cut, left sided neglect, mild left UE drift , ) NIH Stroke Scale - Last Known Well Date/Time & Onset Date Last Known Well: 03/13/19 - Initial Evaluation Level of consciousness: Alert Ask patient the month and their age: Answers both correctly Ask patient to open & close eyes; make fist and let go: Obeys both correctly Best gaze (horizontal eye movement): Normal Visual field testing: Complete hemianopia Facial paresis (Show teeth/raise eyebrows/close eyes tight): Normal symmetrical movement Motor Function: Left Arm: Drift Motor Function: Right Arm: Normal (extends arm 90 (or 45) degrees for 10 seconds without drift Motor Function: Left Leg: Normal (extends leg 30 degrees for 5 seconds without drift) Motor Function: Right Leg: Normal (extends leg 30 degrees for 5 seconds without drift) Limb Ataxia: No ataxia Sensory(Use pinprick test arms,legs,trunk,face/side to side): Mild to moderate decrease in sensation Best language (Describe picture, name items, read sentences): No Aphasia Dysarthria (read several words): Normal articulation Extinction and Inattention: Inattention or extinction bilaterally to one of the sensory modalities - Total Score NIH Stroke Scale Score: 5 Imaging - Results Cat Scan: Image Reviewed MRI: Report Reviewed, Image Reviewed Problem List - Problems (1) Cerebrovascular accident (CVA) Code(s): I63.9 - CEREBRAL INFARCTION, UNSPECIFIED (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 Her sister reports first noticing a change when talking to her on the phone 4 days ago. She said she was "acting weird." She was not having aphasia. The sister said she later had difficulty making coffee that she normally makes every morning. Per ED note, she had a decrease in appetite as well. She reports having bilateral upper arm pain intermittently and generalized weakness. She denies fever, chills, chest pain, headache, and vomiting. She reports seeing a doctor in [facility] for an irregular heart beat but is not currently being treated. She is not anti-coagulated. CH XRY -P CT HD : prelim BL P/O and R cerebellar hypoattenutaion suggestion of acute subacute infarction vs less likely vasogenic edema--await official MRI : Impression. Subacute enhancing infarct superior aspect of the right cerebellum. Acute cortical infarcts are observed in the right temporal temporal lobe, occipital lobe, to a lesser degree, left parietal lobe, left posterior temporal lobe, occipital lobe with restrictive changes on diffusion weighted weighted images, corresponding low signal intensity on the ADC, increased signal intensity of the strokes on the T2, FLAIR [place] - different vascular territories. Clinically correlate for vasculitis. MRA Impression. There is no evidence of aneurysm, vascular malformation or flow limiting stenosis. Impression. Patent common, internal, external carotid arteries, vertebral arteries, forming patent basilar artery.. Normal bifurcation of the common carotid arteries no stenotic lesions are seen. AP : subacute encephalopathy found to have BL bicycle courier infarcts, on exam left sided neglect /field cut and drift ; differential includes cardioembolic disease vs vascultis vs hypercoagbale state <MRA does not show sig changes suggestive of vasculitis though not most sensitive study CTA HEAD/NECK -P check ESR/CICI/CRP/PANCA /CANCA/ MYCHAL --P a1c/TSh noted -- treat TSH Needs FRANKIE/HOLTER --consider LOOp if no etiology deciphered check CT chest /mammo to ensure no malignancy/hypercoag state ASA/statin for now , PLEASE ADD PLAVIX x 3 months will consider AC --though acute phase and large infarct size may have higher predisposition for hem transformation will consider LP , IV steroids depending on above studies DR SHORT Problem List - Problems (1) Cerebrovascular accident (CVA) Code(s): I63.9 - CEREBRAL INFARCTION, UNSPECIFIED (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
--- NOTE | 2019-03-18 09:35 | CONSULT ---
Admitting History and Physical - Primary Care Physician PCP: Jose Marks - Admission History of Present Illness: 74yo F with no significant PMH brought to ED by daughter for episode of confusion, forgetting how to perform simple tasks for ADL. CT HD : prelim BL P/O and R cerebellar hypoattenutaion suggestion of acute subacute infarction vs less likely vasogenic edema--await official MRI : Impression. Subacute enhancing infarct superior aspect of the right cerebellum. Acute cortical infarcts are observed in the right temporal temporal lobe, occipital lobe, to a lesser degree, left parietal lobe, left posterior temporal lobe, occipital lobe with restrictive changes on diffusion weighted weighted images, corresponding low signal intensity on the ADC, increased signal intensity of the strokes on the T2, FLAIR [place] - different vascular territories. Clinically correlate for vasculitis. MRA Impression. There is no evidence of aneurysm, vascular malformation or flow limiting stenosis. Impression. Patent common, internal, external carotid arteries, vertebral arteries, forming patent basilar artery.. Normal bifurcation of the common carotid arteries no stenotic lesions are seen Selected Entries 03/18/19 03/18/19 05:37 06:00 Intake, Oral 100 Amount Temperature 98.2 F Laboratory Tests 03/17/19 01:25 WBC 9.3 History Source: Patient Limitations to Obtaining History: No Limitations - Past Medical History ...: No - Smoking History Smoking history: Unknown if ever smoked Have you smoked in the past 12 months: No - Alcohol/Substance Use Hx Alcohol Use: No History - Admission Reason For Visit: ELEVATED TROPONIN I LEVEL, LESION OF BRAIN - Diagnostics X-ray: Report Reviewed CT Scan: Report Reviewed MRI: Report Reviewed Other: Report Reviewed (CT HD : prelim BL P/O and R cerebellar hypoattenutaion suggestion of acute subacute infarction vs less likely vasogenic edema MRI : Impression. Subacute enhancing infarct superior aspect of the right cerebellum. Acute cortical infarcts are observed in the right temporal temporal lobe, occipital lobe, to a lesser degree, left parietal lobe, left posterior temporal lobe, occipital lobe with restrictive changes on diffusion weighted weighted images, corresponding low signal intensity on the ADC, increased signal intensity of the strokes on the T2, FLAIR [place] - different vascular territories. Clinically correlate for vasculitis. MRA Impression. There is no evidence of aneurysm, vascular malformation or flow limiting stenosis. Impression. Patent common, internal, external carotid arteries, vertebral arteries, forming patent basilar artery.. Normal bifurcation of the common carotid arteries no stenotic lesions are seen) - General Mental Status: Alert and Oriented (except for year. Easy to re-orient.), Awake and Alert, Able to Follow Commands Attention: Intact Ability to Follow Directions: Excellent Head/Neck Control: WFL - Hearing Hearing: Functional Hearing: Normal Hearing Aide: No With Patient: No Speech Evaluation - Communication Primary Language: TAGALOG Communication: Yes: Within Normal Limits Oral Expression Ability: Yes: No Impairment - Speech Production Able to Make Needs Known: Yes: WNL Intelligibility: Yes: WNL - Speech Characteristics Voice Loudness: Normal Voice Pitch: Yes: Normal Voice Phonatory-based Quality: Yes: Normal Speech Pattern: Normal Speech Clarity: < 100% Nasal Resonance: Normal Articulation: Yes: Precise Rate of Speech: Intact - Language/Auditory Comprehension Follows: Yes: 1 Stage Simple Commands, 2 Stage Simple Commands Observation: Able to respond to yes/no queries: Yes, Yes/No Confusion: No, Comprehends Conversational Speech: Yes - Language/Verbal Expression Able to Respond to Simple Queries: Yes: WNL Able to Communicate Wants and Needs: Yes: WNL Functional Communication Status: Yes: WNL Attention: Yes: Intact - Memory/Perception alf Memory: Yes: WNL Short Term Memory: Yes: Mildly Impaired - Swallow Evaluation/Bedside Assessment Current Nutritional Intake: NPO Oral Secretions: Yes: WFL Dentition: Yes: Adequate Facial Symmetry at Rest: Facial Droop Left (slight) Facial Symmetry on Retraction: Symmetrical Facial Movement: Controlled Against Resistance Opening: Normal Against Resistance Closing: Normal Pucker Lips: Normal Smile: Normal Lingual Movement: Normal, Symmetric Lingual Speed of Movement: Normal Lingual Movement Strgth Against Opposition: Normal Lingual Movement Characteristics: Normal Velopharyngeal Movement: Normal Laryngeal Elevation: WFL Laryngeal Movement: Able to Palpate Rate of Intake: WFL Bolus Size: WFL Labial Seal: WFL Chewing: WFL Oral Prep Time: WFL A-P Transit: WFL Pocketing: None Timing of Swallow: WFL Coughing/Throat Clear: No Change in Voice: No Recommendations - Speech Evaluation, Impression/Plan Impression: Speech, language, swallowing intact. Slight left facial at rest. Further w/u regarding possible higher intellectual functioning deficits. eg sequencing, memory, etrc. Seem grossly functional. Pt reports that she has a headache that she gets when she is hungry. Nursing made aware. - Dysphagia Impressions/Plan Swallowing Skills: WF Dysphagia Impressions: No Impairment *Silent aspiration: cannot be R/O at bedside Dysphagia Treatment Plan: OOB for meals, OOB for 1 h. after meals - Recommendations Diet Consistency: Regular Medication Administration: Whole with water Liquids: Thin Liquids
--- NOTE | 2019-03-18 10:53 | PN ---
Progress Note (short form) - Note Progress Note: pt seen/ examined in icu chart reviewed. awake/ comfortable daughter at bedside denies cp/sob/abd pain denies headache/ dizziness Vital Signs Temp 98.2 F 03/18/19 06:00 Pulse 92 H 03/18/19 08:00 Resp 22 H 03/18/19 08:00 BP 110/72 03/18/19 08:00 Pulse Ox 98 03/18/19 09:00 Intake & Output 03/17/19 03/17/19 03/18/19 11:59 23:59 11:59 Intake Total 120 775 Balance 120 775 Weight 132 lb 12.8 oz 132 lb 12.8 oz Intake: IV 675 LACTATED RINGERS SOLUTION 675 1,000 ml In 1,000 ml @ 75 mls/hr IV ASDIR SALO Rx #:[id number] Oral 120 100 Other: Voiding Method Toilet Toilet Toilet # Unmeasured Voids Void 1 1 1 Bowel Movement No No Height 5 ft 5 in Body Mass Index (BMI) 22.1 Weight Measurement Method Built in [facility] Weight Measurement Method Est/Stated by Patient Active Medications Aspirin (Asa -) 325 mg PO DAILY [facility] Last Admin: 03/17/19 18:36 Dose: 325 mg Atorvastatin Calcium (Lipitor -) 80 mg PO HS [facility] Lactated Ringer's (Lactated Ringers Solution) 1,000 ml in 1,000 mls @ 75 mls/ hr IV ASDIR SALO Last Admin: 03/17/19 21:57 Dose: 75 mls/hr CBC, BMP 03/17/19 07:55 03/17/19 07:55 Abnormal Lab Results 03/17/19 03/18/19 20:35 05:25 Troponin I 0.68 H* C-Reactive Protein 7.3 H mri/ ekg/ cxr - reviewed u/s -ve for dvt echo- reviewed Physical Awake/ comfortable heent- no jvd lungs- clear cvs- s1, s2 rrr abd - soft ext - no edema ASSESSMENT AND PLAN: Acute CVA: likely embolic ? - continue present care neurology / cardiology following f/u radiological studies Discussed in detail witl pts daughter also discussed with Pc Maintenance Technician also will follow
[2019-03-18] MEDS: ASPIRIN 325 MG TABLET PO SCH (10:55)
--- NOTE | 2019-03-18 11:27 | PN ---
Teaching Attending Note Name of Resident: Mark Lopez ATTENDING PHYSICIAN STATEMENT I saw and evaluated the patient. I reviewed the resident's note and discussed the case with the resident. I agree with the resident's findings and plan as documented. SUBJECTIVE: Patient seen and examined in the ICU. Awake and alert. No CP or SOB. No acute events overnight. D/W Radiology: Possible sclerotic/blastic lesions T1,T2, T3, T4. Also enlarged lymph nodes in the left axilla. Neck CTA normal. 2 hypodense areas in the thyroid gland. OBJECTIVE: Intake & Output 03/15/19 03/16/19 03/17/19 03/18/19 23:59 23:59 23:59 23:59 Intake Total 120 775 Balance 120 775 Weight 132 lb 12.8 oz 132 lb 12.8 oz Last Vital Signs Temp Pulse Resp BP Pulse Ox 98.2 F 92 H 22 H 110/72 98 03/18/19 06:00 03/18/19 08:00 03/18/19 08:00 03/18/19 08:00 03/18/19 09:00 Active Medications Aspirin (Asa -) 325 mg PO DAILY [facility] Last Admin: 03/18/19 10:55 Dose: 325 mg Atorvastatin Calcium (Lipitor -) 80 mg PO HS SALO Lactated Ringer's (Lactated Ringers Solution) 1,000 ml in 1,000 mls @ 75 mls/ hr IV ASDIR [facility] Last Admin: 03/17/19 21:57 Dose: 75 mls/hr Gen: NAD at rest Heart: RRR Lung: decreased breath sounds at the bases Abd: soft, nontender Ext: no edema APARTMENT LOCATOR: awake and alert, non-focal exam Laboratory Results - last 24 hr 03/17/19 03/18/19 03/18/19 20:35 05:25 05:25 ESR 11 Creatine Kinase 43 Troponin I 0.68 H* C-Reactive Protein 7.3 H ASSESSMENT AND PLAN: Acute CVA: suspected likely embolic R/O Malignancy Abnormal thyroid nodules +Troponins likely Demand Ischemia h/o Valvular Disease - Will need oncologic work up - Neuro checks - ASA & Plavix - High does statin - To discuss with cardiology about performing FRANKIE - VTE prophylaxis - PO as tolerated after speech & swallow evaluation - Stroke unit monitoring Dr Sainz
[2019-03-18] MEDS: LACTATED RINGERS SOLUTION 1,000 ML/1,000 ML INFUS.BAG IV SCH ×2 (12:56→21:55)
[2019-03-18] MEDS: CLOPIDOGREL BISULFATE 75 MG TABLET (FP) PO SCH (12:59)
--- NOTE | 2019-03-18 15:09 | ECHO ---
Name: KRISTI SHARYN J Exam:Adult Echocardiogram Study Date: 03/18/2019 01:41 PM Age: 74 yrs Reason For Study: r/o source of emboli Height: 65 in Weight: 132 lb BSA: 1.7 m2 Atria Injection of agitated saline reveals no evidence of shunt (no ASD/ PFO). Interpretation Summary Injection of agitated saline reveals no evidence of shunt (no ASD/ PFO). MD Brennan Leonard 03/18/2019 03:08 PM
--- NOTE | 2019-03-18 15:12 | PN ---
Progress Note, Physician Chief Complaint: Telem NSR History of Present Illness: 74 F with a history of "irregular heart beat" (reported over 20 yrs ago) was admitted yesterday with confusion and found to have bilateral CVAs. Labs show elevated TP>1. There is no previous ho CAD. She reports no chest pain, palpitations or TURNER. - Current Medication List Current Medications: Active Medications Aspirin (Asa -) 325 mg PO DAILY [facility] Last Admin: 03/18/19 10:55 Dose: 325 mg Atorvastatin Calcium (Lipitor -) 80 mg PO HS [facility] Clopidogrel Bisulfate (Plavix -) 75 mg PO DAILY [facility] Last Admin: 03/18/19 12:59 Dose: 75 mg Lactated Ringer's (Lactated Ringers Solution) 1,000 ml in 1,000 mls @ 75 mls/ hr IV ASDIR [facility] Last Admin: 03/18/19 12:56 Dose: 75 mls/hr - Objective Vital Signs: Vital Signs Temperature 97.8 F 03/18/19 10:00 Pulse Rate 98 H 03/18/19 14:00 Respiratory Rate 17 03/18/19 14:00 Blood Pressure 107/55 L 03/18/19 14:00 O2 Sat by Pulse Oximetry (%) 97 03/18/19 14:25 Constitutional: Yes: Well Nourished, No Distress Eyes: Yes: Conjunctiva Clear HENT: Yes: Atraumatic, Normocephalic Cardiovascular: Yes: Regular Rate and Rhythm, S1, S2. No: JVD, Murmur Respiratory: Yes: Regular, CTA Bilaterally Edema: No Labs: CBC, BMP 03/17/19 07:55 03/17/19 07:55 Problem List - Problems (1) NSTEMI (non-ST elevated myocardial infarction) Code(s): I21.4 - NON-ST ELEVATION (NSTEMI) MYOCARDIAL INFARCTION (2) Cerebrovascular accident (CVA) Code(s): I63.9 - CEREBRAL INFARCTION, UNSPECIFIED Assessment/Plan Possible cardio-embolic stroke. Continue telemetry-if normal tele, will plan for out patient holter or implantable loop recorder. Echocardiogram showed normal LV function without pulm HTN. Possible blastic Thoracic spine lesions. -Check Free T4 level Continue statin. -Continue ASA -Follow bubble study -FRANKIE will be scheduled for Thursday or as an out patient if pt is to be discharged before then, Elevated TP in the setting of CVA may suggest cardioembolic showering to the coronaries, NSTEMI in the setting of sig illness or demand ischemia. Will manage medically at this time. Permissive HTN at this time but will eventually consider adding Beta blockers.
[2019-03-18] MEDS ORDERED: ACETAMINOPHEN 325 MG TABLET (FP) PO ONE (17:15)
[2019-03-18] MEDS: ATORVASTATIN CA 80 MG TABLET (FP) PO SCH (21:40)
[2019-03-19] MEDS: ASPIRIN 325 MG TABLET PO SCH (10:40)
[2019-03-19] MEDS: CLOPIDOGREL BISULFATE 75 MG TABLET (FP) PO SCH (10:40)
--- NOTE | 2019-03-19 11:25 | PN ---
Progress Note (short form) - Note Progress Note: Coverage for Dr Raza Events noted daughter at bedside Pt is speaking clear, makes sense Moves all extremities no headaches Vital Signs - 24 hr 03/18/19 03/18/19 03/18/19 12:00 14:00 14:25 Temperature Pulse Rate 108 H 98 H Respiratory 26 H 17 Rate Blood Pressure 115/58 L 107/55 L O2 Sat by Pulse 97 Oximetry (%) 03/18/19 03/18/19 03/18/19 16:00 18:00 20:00 Temperature 98.7 F Pulse Rate 90 97 H 97 H Respiratory 26 H 21 H 18 Rate Blood Pressure 97/61 109/68 108/62 O2 Sat by Pulse Oximetry (%) 03/18/19 03/18/19 03/19/19 20:01 22:00 00:00 Temperature 98.5 F Pulse Rate 88 91 H Respiratory 16 25 H Rate Blood Pressure 124/76 100/61 O2 Sat by Pulse 97 Oximetry (%) 03/19/19 03/19/19 03/19/19 02:00 04:00 06:00 Temperature 98.1 F 98.3 F Pulse Rate 85 80 79 Respiratory 24 H 22 H 22 H Rate Blood Pressure 100/61 105/72 105/72 O2 Sat by Pulse Oximetry (%) 03/19/19 08:00 Temperature Pulse Rate 85 Respiratory 17 Rate Blood Pressure 126/83 O2 Sat by Pulse Oximetry (%) Current Medications Generic Name Dose Route Start Last Admin Trade Name Freq PRN Reason Stop Dose Admin Aspirin 325 mg 03/17/19 18:15 03/19/19 10:40 Asa - PO 325 mg DAILY SALO Administration Atorvastatin Calcium 80 mg 03/18/19 22:00 03/18/19 21:40 Lipitor - PO 80 mg HS SALO Administration Clopidogrel Bisulfate 75 mg 03/18/19 11:30 03/19/19 10:40 Plavix - PO 75 mg DAILY SALO Administration Lactated Ringer's 1,000 ml in 1,000 mls @ 75 mls/hr 03/17/19 22:00 03/18/19 21:55 Lactated Ringers Solution IV Not Given ASDIR SALO Laboratory Results - last 24 hr 03/19/19 09:38 Free T4 1.14 S1 S2 RRR, systolic murmur aortic area Lungs clear Abd- soft, NT breasts exam-- no axillary lne , Right breast above nipple--inverted nipple, hard indurated mass felt left breast-- no mass felt no edema strength 5/5 both upper and lower extremities no facial droop PLAN CTA head and neck noted no anticoagulation cardioembolic stroke for bubble study May need FRANKIE per Cardiology-- possibly Thursday wont be able to undergo breaat sono or mammo, or thyroid sono as inpatient daughter aware Oncology eval will order CT chest/abd /pelvis=-- surveillance Problem List - Problems (1) Cerebrovascular accident (CVA) Code(s): I63.9 - CEREBRAL INFARCTION, UNSPECIFIED (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
--- NOTE | 2019-03-19 11:39 | PN ---
Progress Note (short form) - Note Progress Note: HPI : 03/17/19 74yo female with hx of arrhythmia presents with AMS x 4 days. Her sister reports first noticing a change when talking to her on the phone 4 days ago. She said she was "acting weird." She was not having aphasia. The sister said she later had difficulty making coffee that she normally makes every morning. Per ED note, she had a decrease in appetite as well. She reports having bilateral upper arm pain intermittently and generalized weakness. She denies fever, chills, chest pain, headache, and vomiting. She reports seeing a doctor in [facility] for an irregular heart beat but is not currently being treated. She is not anti-coagulated. FU today: no issues overnight , mild SOB, PMD palpated breast mass CTA noted --no evidence of vascular anomalies, +sclerotic changes on thoracic VB noted BP stable communicating well, STUDIES: CTA : Impression. Normal contour of the intracranial arterial vessels. Hypodense nodules are noted in the right lobe the thyroid gland. Enlarged right thyroid gland. Heterogeneous attenuation of the left lobe the thyroid with hypodense nodules. Thyroid ultrasound recommended. Sclerotic, blastic changes are noted in T1, T2, T4, T5 vertebral bodies. Left axillary lymph nodes are noted. MRI : Impression. Subacute enhancing infarct superior aspect of the right cerebellum. Acute cortical infarcts are observed in the right temporal temporal lobe, occipital lobe, to a lesser degree, left parietal lobe, left posterior temporal lobe, occipital lobe with restrictive changes on diffusion weighted weighted images, corresponding low signal intensity on the ADC, increased signal intensity of the strokes on the T2, FLAIR [place] - different vascular territories. Clinically correlate for vasculitis. MRA Impression. There is no evidence of aneurysm, vascular malformation or flow limiting stenosis. Impression. Patent common, internal, external carotid arteries, vertebral arteries, forming patent basilar artery.. Normal bifurcation of the common carotid arteries no stenotic lesions are seen. ECHO noted-WNL , has been in sinus - Smoking History Smoking history: Unknown if ever smoked Home Medications - Allergies Allergies/Adverse Reactions: Allergies Allergy/AdvReac Type Severity Reaction Status Date / Time Penicillins Allergy Verified 03/17/19 02:45 - Home Medications Home Medications: Ambulatory Orders Aspirin [ASA -] 81 mg PO DAILY 03/17/19 Physical Exam-Neuro Vital Signs: Vital Signs Temperature 98.3 F 03/19/19 06:00 Pulse Rate 85 07/13/19 08:00 Respiratory Rate 17 03/19/19 08:00 Blood Pressure 126/83 03/19/19 08:00 O2 Sat by Pulse Oximetry (%) 97 03/18/19 20:01 - Neuro Exam Level Of Consciousness: Yes: Alert (awake, alert, Left sided field cut, left sided neglect, mild left UE drift , ) NIH Stroke Scale - Last Known Well Date/Time & Onset Date Last Known Well: 03/13/19 - Initial Evaluation Level of consciousness: Alert Ask patient the month and their age: Answers both correctly Ask patient to open & close eyes; make fist and let go: Obeys both correctly Best gaze (horizontal eye movement): Normal Visual field testing: Complete hemianopia Facial paresis (Show teeth/raise eyebrows/close eyes tight): Normal symmetrical movement Motor Function: Left Arm: Drift Motor Function: Right Arm: Normal (extends arm 90 (or 45) degrees for 10 seconds without drift Motor Function: Left Leg: Normal (extends leg 30 degrees for 5 seconds without drift) Motor Function: Right Leg: Normal (extends leg 30 degrees for 5 seconds without drift) Limb Ataxia: No ataxia Sensory(Use pinprick test arms,legs,trunk,face/side to side): Mild to moderate decrease in sensation Best language (Describe picture, name items, read sentences): No Aphasia Dysarthria (read several words): Normal articulation Extinction and Inattention: Inattention or extinction bilaterally to one of the sensory modalities - Total Score NIH Stroke Scale Score: 5 Imaging - Results Cat Scan: Image Reviewed MRI: Report Reviewed, Image Reviewed Problem List - Problems (1) Cerebrovascular accident (CVA) Code(s): I63.9 - CEREBRAL INFARCTION, UNSPECIFIED (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 Her sister reports first noticing a change when talking to her on the phone 4 days ago. She said she was "acting weird." She was not having aphasia. The sister said she later had difficulty making coffee that she normally makes every morning. Per ED note, she had a decrease in appetite as well. She reports having bilateral upper arm pain intermittently and generalized weakness. She denies fever, chills, chest pain, headache, and vomiting. She reports seeing a doctor in [facility] for an irregular heart beat but is not currently being treated. She is not anti-coagulated. MRI : Impression. Subacute enhancing infarct superior aspect of the right cerebellum. Acute cortical infarcts are observed in the right temporal temporal lobe, occipital lobe, to a lesser degree, left parietal lobe, left posterior temporal lobe, occipital lobe with restrictive changes on diffusion weighted weighted images, corresponding low signal intensity on the ADC, increased signal intensity of the strokes on the T2, FLAIR [place] - different vascular territories. Clinically correlate for vasculitis. MRA Impression. There is no evidence of aneurysm, vascular malformation or flow limiting stenosis. Impression. Patent common, internal, external carotid arteries, vertebral arteries, forming patent basilar artery.. Normal bifurcation of the common carotid arteries no stenotic lesions are seen. 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, on exam left sided neglect /field cut and drift ; differential includes cardioembolic disease vs vascultis (less likely) vs +++ hypercoagable state MRA/CTA does not show sig changes suggestive of vasculitis INC alk phosh/LFTs/ CT with bony changes/+ breast mass- HEM ONC consult-- consider bone scan check CT chest /mammo to ensure no malignancy/hypercoag state --FU THYROID US FRANKIE/HOLTER --P ASA/statin/PLAVIX, HEP SQ DR SHORT Problem List - Problems (1) Cerebrovascular accident (CVA) Code(s): I63.9 - CEREBRAL INFARCTION, UNSPECIFIED (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
[2019-03-19 11:51] VITALS: BMI 21.9
--- NOTE | 2019-03-19 17:41 | PN ---
Progress Note, Physician History of Present Illness: pt seen and examined today in nad. sitting in chair with daughter next to her. no overnight events. no new complaints. tele-nsr, no events recorded - Current Medication List Current Medications: Active Medications Aspirin (Asa -) 325 mg PO DAILY [facility] Last Admin: 03/19/19 10:40 Dose: 325 mg Atorvastatin Calcium (Lipitor -) 80 mg PO HS [facility] Last Admin: 03/18/19 21:40 Dose: 80 mg Clopidogrel Bisulfate (Plavix -) 75 mg PO DAILY [facility] Last Admin: 03/19/19 10:40 Dose: 75 mg Lactated Ringer's (Lactated Ringers Solution) 1,000 ml in 1,000 mls @ 75 mls/ hr IV ASDIR [facility] Last Admin: 03/18/19 21:55 Dose: Not Given - Objective Vital Signs: Vital Signs Temperature 96.1 F L 03/19/19 16:00 Pulse Rate 112 H 03/19/19 16:00 Respiratory Rate 22 H 03/19/19 16:00 Blood Pressure 100/48 L 03/19/19 16:00 O2 Sat by Pulse Oximetry (%) 96 03/19/19 12:00 Constitutional: Yes: No Distress, Calm Eyes: Yes: Conjunctiva Clear, EOM Intact HENT: Yes: Atraumatic, Normocephalic Neck: Yes: Supple, Trachea Midline Cardiovascular: Yes: Regular Rate and Rhythm, S1, S2. No: Bradycardia, Tachycardia, Pulse Irregular, Bruit, JVD, Gallop, Murmur, Rub, S3, S4, Varicosities Respiratory: Yes: Regular, CTA Bilaterally. No: Rales, Rhonchi, Wheezes Gastrointestinal: Yes: Normal Bowel Sounds, Soft Edema: No Peripheral Pulses WNL: Yes Neurological: Yes: Alert, Oriented Psychiatric: Yes: Alert, Oriented Labs: CBC, BMP 03/17/19 07:55 03/17/19 07:55 - ....Imaging Chest X-ray: Report Reviewed, Image Reviewed EKG: Report Reviewed, Image Reviewed Other: Report Reviewed, Image Reviewed Assessment/Plan Possible cardio-embolic stroke. Continue telemetry-if normal tele, will plan for out patient holter or implantable loop recorder. Echocardiogram showed normal LV function without pulm HTN. Possible blastic Thoracic spine lesions. -Continue ASA, Plavix, statin -stroke work up as per neuro reccs, hypercoagluable/onc work up -Follow bubble study -plan for likely FRANKIE on Thursday to evaluate for cardiac sources of emboli or if discharged prior to that then can be done as an out patient -if other source is identified ie hypercoagulable state then pt may not need FRANKIE -Elevated TP in the setting of CVA may suggest cardioembolic showering to the coronaries, NSTEMI in the setting of sig illness or demand ischemia. Will manage medically at this time. Permissive HTN at this time but will eventually consider adding Beta blockers. 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
--- NOTE | 2019-03-19 19:21 | CONSULT ---
Consult Consult Specialty:: Heme/onc Referred by:: Dr. Agosto Reason for Consultation:: bone lesions - History of Present Illness Chief Complaint: AMS History of Present Illness: 74F with hx arrhythmia (no details available, not on Rx) admitted with AMS on and found to have a subacute enhancing infarct in right cerebellum as well as acute cortical infarcts in right temporal, occipital left parietal, left temporal lobes. ?Cardioembolic vs vasculitis. No PFO on bubble study. Holter, ? FRANKIE pending. Elevated troponin. Oncology consulted for incidental finding of sclerotic blastic changes in T1, T2, T4, left axillary LNs and enlarged right lobe of thyroid with hypodense nodules on CTA head. Pt reports fatigue, loss of appetite 30 lb weight loss in the last few months. Last mammo about 15 years ago. Never had colonoscopy. Denies fevers, night sweats, early satiety. Has not felt breast lumps but endorses noticing clear discharge from left breast. Brother in his 70s has colon cancer. No other family hx of cancer - Past Medical History ...: No - Alcohol/Substance Use Hx Alcohol Use: No - Smoking History Smoking history: Unknown if ever smoked Have you smoked in the past 12 months: No Home Medications - Allergies Allergies/Adverse Reactions: Allergies Allergy/AdvReac Type Severity Reaction Status Date / Time Penicillins Allergy Verified 03/17/19 02:45 - Home Medications Home Medications: Ambulatory Orders Aspirin [ASA -] 81 mg PO DAILY 03/17/19 Review of Systems - Review of Systems Constitutional: reports: Loss of Appetite, Unintentional Wgt. Loss Cardiovascular: reports: No Symptoms Respiratory: reports: No Symptoms Gastrointestinal: denies: Abdominal Pain, Melena, Rectal Bleeding Genitourinary: reports: No Symptoms Breasts: reports: Discharge from Nipple Endocrine: reports: No Symptoms Physical Exam Vital Signs: Vital Signs Temperature 97.9 F 03/19/19 14:00 Pulse Rate 101 H 03/19/19 18:00 Respiratory Rate 03/19/19 18:00 Blood Pressure 133/87 03/19/19 18:00 O2 Sat by Pulse Oximetry (%) 97 03/19/19 18:25 Constitutional: Yes: No Distress, Calm Eyes: Yes: Conjunctiva Clear Cardiovascular: Yes: Regular Rate and Rhythm Respiratory: Yes: Regular, CTA Bilaterally Gastrointestinal: Yes: Soft. No: Distention, Tenderness Breast(s): Yes: Left (some fullness) Labs: CBC, BMP 03/17/19 07:55 03/17/19 07:55 Assessment/Plan 74F admitted with acute CVA. Found to have sclerotic blastic changes in T1, T2, T4, left axillary LNs and enlarged right lobe of thyroid with hypodense nodules on CTA head. Please obtain CT abd/pel/chest with contrast Thyroid ultrasound Mammogram Check antiphospholipid panel
[2019-03-19] MEDS: ATORVASTATIN CA 80 MG TABLET (FP) PO SCH (21:19)
--- NOTE | 2019-03-20 07:35 | PN ---
Progress Note (short form) - Note Progress Note: PULMONARY / CRITICAL CARE PROGRESS NOTE: SUBJECTIVE: Patient seen and examined in the ICU. Awaiting floor bed Current Medications Aspirin (Asa -) 325 mg PO DAILY [facility] Last Admin: 03/19/19 10:40 Dose: 325 mg Atorvastatin Calcium (Lipitor -) 80 mg PO HS [facility] Last Admin: 03/19/19 21:19 Dose: 80 mg Clopidogrel Bisulfate (Plavix -) 75 mg PO DAILY [facility] Last Admin: 03/19/19 10:40 Dose: 75 mg Vital Signs Temp 98.3 F 03/20/19 06:00 Pulse 92 H 03/20/19 06:00 Resp 17 03/20/19 06:00 BP 109/57 L 03/20/19 06:00 Pulse Ox 97 03/19/19 20:13 Intake & Output 03/19/19 03/20/19 03/20/19 18:59 06:59 18:59 Intake Total 810 300 Balance 810 300 Weight 59.874 kg Intake: IV 450 LACTATED RINGERS SOLUTION 450 1,000 ml In 1,000 ml @ 75 mls/hr IV ASDIR [facility] Rx #:[id number] Oral 360 300 Other: Voiding Method Toilet Toilet # Unmeasured Voids Void 3 2 Bowel Movement No Height 5 ft 5 in Body Mass Index (BMI) 21.9 EXAM: Gen: NAD at rest Heart: RRR Lung: decreased breath sounds at the bases Abd: soft, nontender Ext: no edema ACCOUNTING PROFESSIONAL: awake and alert, non-focal exam CBC, BMP 03/17/19 07:55 03/17/19 07:55 ASSESSMENT AND PLAN: Acute CVA: suspected likely embolic R/O Malignancy Abnormal thyroid nodules +Troponins likely Demand Ischemia h/o Valvular Disease - Will need oncologic work up - Neuro checks - ASA & Plavix - High does statin - To discuss with cardiology about performing FRANKIE - VTE prophylaxis - PO as tolerated after speech & swallow evaluation - Stroke unit monitoring Transfer to floor [facility] CONSTRUCTION REPRESENTATIVE
[2019-03-20 08:28] LABS: BASO % 0.6 % (0-2.0); EOS % 4.3 % (0-4.5); HEMATOCRIT 36.5 % (32.4-45.2); HEMOGLOBIN 12.5 GM/dL (10.7-15.3); LYMPH % 12.4 % (8-40); MCH 30.7 pg (25.7-33.7); MCHC 34.2 g/dl (32.0-36.0); MEAN CELL VOLUME 89.8 fl (80-96); MEAN PLT VOLUME 7.7 fl (7.5-11.1); MONO % 8.1 % (3.8-10.2); NEUT % 74.6 % (42.8-82.8); RBC 4.07 M/mm3 (3.60-5.2); RDW 13.2 % (11.6-15.6); WHITE BLOOD COUNT 10.5 K/mm3 (4.0-10.0)
--- NOTE | 2019-03-20 08:43 | PN ---
Progress Note (short form) - Note Progress Note: Events noted daughter at bedside Pt is speaking clear, makes sense Moves all extremities no headaches she had slight unsteady gait per daughter Vital Signs - 24 hr 03/19/19 03/19/19 03/19/19 09:00 10:00 12:00 Temperature 98.6 F Pulse Rate 79 100 H Respiratory 19 13 Rate Blood Pressure 125/75 123/83 O2 Sat by Pulse 96 96 Oximetry (%) 03/19/19 03/19/19 03/19/19 14:00 16:00 18:00 Temperature 97.9 F Pulse Rate 100 H 99 H 101 H Respiratory 16 14 19 Rate Blood Pressure 123/83 109/88 133/87 O2 Sat by Pulse Oximetry (%) 03/19/19 03/19/19 03/19/19 18:25 20:00 20:13 Temperature Pulse Rate 87 Respiratory 19 Rate Blood Pressure 120/77 O2 Sat by Pulse 97 97 Oximetry (%) 03/19/19 03/20/19 03/20/19 22:00 00:00 02:00 Temperature 98.1 F 98 F Pulse Rate 98 H 89 84 Respiratory 23 H 25 H 22 H Rate Blood Pressure 137/84 125/86 124/84 O2 Sat by Pulse Oximetry (%) 03/20/19 03/20/19 04:00 06:00 Temperature 98.3 F Pulse Rate 88 92 H Respiratory 24 H 17 Rate Blood Pressure 109/75 109/57 L O2 Sat by Pulse Oximetry (%) Current Medications Generic Name Dose Route Start Last Admin Trade Name Freq PRN Reason Stop Dose Admin Aspirin 325 mg 03/17/19 18:15 03/19/19 10:40 Asa - PO 325 mg DAILY [facility] Administration Atorvastatin Calcium 80 mg 03/18/19 22:00 03/19/19 21:19 Lipitor - PO 80 mg HS [facility] Administration Clopidogrel Bisulfate 75 mg 03/18/19 11:30 03/19/19 10:40 Plavix - PO 75 mg DAILY [facility] Administration Laboratory Results - last 24 hr 03/18/19 03/19/19 05:25 09:38 Free T4 1.14 CICI Screen Positive H CICI Homogeneous Pattern TNP CICI Nucleolar Pattern 1:160 H CICI Spindle Jacquelin Pattern TNP CICI Midbody Pattern TNP CICI Centriole Pattern TNP CICI Nuclear Dot Pattern TNP CICI PCNA Pattern TNP CICI Nuclear Membr Pat TNP CICI Speckled Pattern TNP CICI Centromere Pattern TNP S1 S2 RRR, systolic murmur aortic area Lungs clear Abd- soft, NT breasts exam-- no axillary lne , Right breast above nipple--inverted nipple, hard indurated mass felt left breast-- no mass felt no edema strength 5/5 both upper and lower extremities no facial droop PLAN CTA head and neck noted no anticoagulation cardioembolic stroke ? r/o hypercoagulabile state for bubble study ? 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
[2019-03-20 08:45] LABS: PLATELET COUNT 116 K/MM3 (134-434)
[2019-03-20 09:16] LABS: CALCIUM 8.3 mg/dL (8.5-10.1); CREATININE 0.7 mg/dL (0.55-1.3); MAGNESIUM 2.2 mg/dL (1.8-2.4); PHOSPHOROUS 3.8 mg/dL (2.5-4.9); POTASSIUM 3.9 mmol/L (3.5-5.1)
[2019-03-20] MEDS: CLOPIDOGREL BISULFATE 75 MG TABLET (FP) PO SCH (10:34)
[2019-03-20] MEDS: ASPIRIN 325 MG TABLET PO SCH (10:34)
--- NOTE | 2019-03-20 12:19 | PN ---
Progress Note (short form) - Note Progress Note: PULMONARY / CRITICAL CARE PROGRESS NOTE: SUBJECTIVE: Patient seen and examined in the ICU. Awaiting floor bed Current Medications Aspirin (Asa -) 325 mg PO DAILY [facility] Last Admin: 03/19/19 10:40 Dose: 325 mg Atorvastatin Calcium (Lipitor -) 80 mg PO HS [facility] Last Admin: 03/19/19 21:19 Dose: 80 mg Clopidogrel Bisulfate (Plavix -) 75 mg PO DAILY [facility] Last Admin: 03/19/19 10:40 Dose: 75 mg Vital Signs Temp 98.3 F 03/20/19 06:00 Pulse 92 H 03/20/19 06:00 Resp 17 03/20/19 06:00 BP 109/57 L 03/20/19 06:00 Pulse Ox 97 03/19/19 20:13 Intake & Output 03/19/19 03/20/19 03/20/19 18:59 06:59 18:59 Intake Total 810 300 Balance 810 300 Weight 59.874 kg Intake: IV 450 LACTATED RINGERS SOLUTION 450 1,000 ml In 1,000 ml @ 75 mls/hr IV ASDIR [facility] Rx #:[id number] Oral 360 300 Other: Voiding Method Toilet Toilet # Unmeasured Voids Void 3 2 Bowel Movement No Height 5 ft 5 in Body Mass Index (BMI) 21.9 EXAM: Gen: NAD at rest Heart: RRR Lung: decreased breath sounds at the bases Abd: soft, nontender Ext: no edema SENIOR ACCOUNTING ASSOCIATE: awake and alert, non-focal exam CBC, BMP 03/20/19 07:45 03/20/19 07:45 ASSESSMENT AND PLAN: Acute CVA: suspected likely embolic R/O Malignancy Abnormal thyroid nodules +Troponins likely Demand Ischemia h/o Valvular Disease - Will need oncologic work up - Neuro checks - ASA & Plavix - High does statin - f/u with cardiology for FRANKIE - VTE prophylaxis - PO as tolerated after speech & swallow evaluation - Stroke unit monitoring Transfer to floor [facility]Critical [facility] 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
--- NOTE | 2019-03-20 14:14 | PN ---
Progress Note (short form) - Note Progress Note: 74yo female with hx of arrhythmia presents with AMS x 4 days. Her sister reports first noticing a change when talking to her on the phone 4 days ago. She said she was "acting weird." She was not having aphasia. The sister said she later had difficulty making coffee that she normally makes every morning. Per ED note, she had a decrease in appetite as well. She reports having bilateral upper arm pain intermittently and generalized weakness. She denies fever, chills, chest pain, headache, and vomiting. She reports seeing a doctor in [facility] for an irregular heart beat but is not currently being treated. She is not anti-coagulated. FU today: no issues overnight , spacial neglect with some improvement PMD palpated breast mass CT noted -- suspicious for bony mets , LL lung mass CTA noted --no evidence of vascular anomalies, +sclerotic changes on thoracic VB noted BP stable communicating well, STUDIES: CTA : Impression. Normal contour of the intracranial arterial vessels. Hypodense nodules are noted in the right lobe the thyroid gland. Enlarged right thyroid gland. Heterogeneous attenuation of the left lobe the thyroid with hypodense nodules. Thyroid ultrasound recommended. Sclerotic, blastic changes are noted in T1, T2, T4, T5 vertebral bodies. Left axillary lymph nodes are noted. MRI : Impression. Subacute enhancing infarct superior aspect of the right cerebellum. Acute cortical infarcts are observed in the right temporal temporal lobe, occipital lobe, to a lesser degree, left parietal lobe, left posterior temporal lobe, occipital lobe with restrictive changes on diffusion weighted weighted images, corresponding low signal intensity on the ADC, increased signal intensity of the strokes on the T2, FLAIR WI - different vascular territories. Clinically correlate for vasculitis. MRA Impression. There is no evidence of aneurysm, vascular malformation or flow limiting stenosis. Impression. Patent common, internal, external carotid arteries, vertebral arteries, forming patent basilar artery.. Normal bifurcation of the common carotid arteries no stenotic lesions are seen. ECHO noted-WNL , has been in sinus - Smoking History Smoking history: Unknown if ever smoked Home Medications - Allergies Allergies/Adverse Reactions: Allergies Allergy/AdvReac Type Severity Reaction Status Date / Time Penicillins Allergy Verified 03/17/19 02:45 - Home Medications Home Medications: Ambulatory Orders Aspirin [ASA -] 81 mg PO DAILY 03/17/19 Physical Exam-Neuro Vital Signs: Vital Signs Temperature 98.3 F 03/20/19 06:00 Pulse Rate 102 H 03/20/19 10:00 Respiratory Rate 20 03/20/19 10:00 Blood Pressure 117/76 03/20/19 10:00 O2 Sat by Pulse Oximetry (%) 97 03/20/19 09:00 - Neuro Exam Level Of Consciousness: Yes: Alert (awake, alert, Left sided field cut, left sided neglect, mild left UE drift , ) NIH Stroke Scale - Last Known Well Date/Time & Onset Date Last Known Well: 03/13/19 - Initial Evaluation Level of consciousness: Alert Ask patient the month and their age: Answers both correctly Ask patient to open & close eyes; make fist and let go: Obeys both correctly Best gaze (horizontal eye movement): Normal Visual field testing: Complete hemianopia Facial paresis (Show teeth/raise eyebrows/close eyes tight): Normal symmetrical movement Motor Function: Left Arm: Drift Motor Function: Right Arm: Normal (extends arm 90 (or 45) degrees for 10 seconds without drift Motor Function: Left Leg: Normal (extends leg 30 degrees for 5 seconds without drift) Motor Function: Right Leg: Normal (extends leg 30 degrees for 5 seconds without drift) Limb Ataxia: No ataxia Sensory(Use pinprick test arms,legs,trunk,face/side to side): Mild to moderate decrease in sensation Best language (Describe picture, name items, read sentences): No Aphasia Dysarthria (read several words): Normal articulation Extinction and Inattention: Inattention or extinction bilaterally to one of the sensory modalities - Total Score NIH Stroke Scale Score: 5 Imaging - Results Cat Scan: Image Reviewed MRI: Report Reviewed, Image Reviewed Problem List - Problems (1) Cerebrovascular accident (CVA) Code(s): I63.9 - CEREBRAL INFARCTION, UNSPECIFIED (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 Her sister reports first noticing a change when talking to her on the phone 4 days ago. She said she was "acting weird." She was not having aphasia. The sister said she later had difficulty making coffee that she normally makes every morning. Per ED note, she had a decrease in appetite as well. She reports having bilateral upper arm pain intermittently and generalized weakness. She denies fever, chills, chest pain, headache, and vomiting. She reports seeing a doctor in [facility] for an irregular heart beat but is not currently being treated. She is not anti-coagulated. MRI : Impression. Subacute enhancing infarct superior aspect of the right cerebellum. Acute cortical infarcts are observed in the right temporal temporal lobe, occipital lobe, to a lesser degree, left parietal lobe, left posterior temporal lobe, occipital lobe with restrictive changes on diffusion weighted weighted images, corresponding low signal intensity on the ADC, increased signal intensity of the strokes on the T2, FLAIR [place] - different vascular territories. Clinically correlate for vasculitis. MRA Impression. There is no evidence of aneurysm, vascular malformation or flow limiting stenosis. Impression. Patent common, internal, external carotid arteries, vertebral arteries, forming patent basilar artery.. Normal bifurcation of the common carotid arteries no stenotic lesions are seen. AP : subacute encephalopathy found to have BL cash controller infarcts, on exam left sided neglect /field cut and drift ; suspect underlying relative hypercoag state given new findings of possible mets , primary unknown differential includes cardioembolic disease vs vascultis (less likely) vs +++ hypercoagable state MRA/CTA does not show sig changes suggestive of vasculitis INC alk phosh/LFTs/ CT with bony changes/+ breast mass- HEM ONC consult-- consider bone scan check CT chest /mammo to ensure no malignancy/hypercoag state --FU THYROID US FRANKIE/HOLTER --P ASA/statin/PLAVIX, HEP SQ DR SHOTR Problem List - Problems (1) Cerebrovascular accident (CVA) Code(s): I63.9 - CEREBRAL INFARCTION, UNSPECIFIED (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
--- NOTE | 2019-03-20 19:07 | PN ---
Progress Note, Physician History of Present Illness: Feels well. No complaints. - Current Medication List Current Medications: Active Medications Aspirin (Asa -) 325 mg PO DAILY [facility] Atorvastatin Calcium (Lipitor -) 80 mg PO HS [facility] Clopidogrel Bisulfate (Plavix -) 75 mg PO DAILY [facility] - Objective Vital Signs: Vital Signs Temperature 98.3 F 03/20/19 06:00 Pulse Rate 101 H 03/20/19 18:00 Respiratory Rate 20 03/20/19 18:00 Blood Pressure 121/77 03/20/19 18:00 O2 Sat by Pulse Oximetry (%) 97 03/20/19 09:00 Constitutional: Yes: No Distress Eyes: Yes: Conjunctiva Clear Respiratory: Yes: Regular, CTA Bilaterally Gastrointestinal: Yes: Soft. No: Distention, Tenderness Edema: No Labs: CBC, BMP 03/20/19 07:45 03/20/19 07:45 Assessment/Plan 74F admitted with acute CVA. Found to have sclerotic blastic changes in T1, T2, T4, left axillary LNs and enlarged right lobe of thyroid (with hypodense nodules ) incidentally noted on CTA head. CT chest with LLL cavitary mass. Need to discuss with IR feasibility of bx of bone lesions. If thought to be low yield, will probably pursue lung mass bx. Ordered for thyroid ultrasound and mammogram Check antiphospholipid panel
[2019-03-20] MEDS ORDERED: PT OWN MED DRAWER 7, Y5N ONE (21:32)
[2019-03-20] MEDS ORDERED: ATORVASTATIN CA 80 MG TABLET (FP) PO SCH (22:00)
--- NOTE | 2019-03-21 08:44 | PN ---
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 No clinical significant findings were present at that time. The patient came back 1 week later on 03/06/19 with low grade fever and persisting cough. She was given Levaquin po with partial improvement of her cough. On 03/09/19 blood showed elevated alkaline phosphatase at 326 and AST elevation at 36. Hepatitis panel on was negative for HEp B and C, and for acute Hep A. Bilirubin was elevated at 1.6. Álvarez sign was negative. Ultrasound of the gallbladder showed posterior non shadowing echogenic lesion of the gallbladder 0.5X0.2X0.4cm and upper normal size CBD. On 03/17 patient presented to ER with altered mental status. Cardiac enzymes were found to be borderline positive. MRI of the brain showed acute stroke. A ct scan of the lungs showed cavity lesion in the left lung and possible vertebral blastic lesions in the Cervical, thoracic and lumbar region and malignancy workup was initiated. PAtient di d not have mammograms or colonoscopies over parvin past 10 years, There is h/o of lung cancer in her brother. - Current Medication List Current Medications: Active Medications Aspirin (Asa -) 325 mg PO DAILY [facility] Atorvastatin Calcium (Lipitor -) 80 mg PO [facility] Last Admin: 03/20/19 21:33 Dose: 80 mg Clopidogrel Bisulfate (Plavix -) 75 mg PO DAILY [facility] - Objective Vital Signs: Vital Signs Temperature 98.4 F 03/21/19 04:00 Pulse Rate 89 03/21/19 06:00 Respiratory Rate 22 H 03/21/19 06:00 Blood Pressure 117/87 03/21/19 06:00 O2 Sat by Pulse Oximetry (%) 97 03/20/19 09:00 Constitutional: Yes: No Distress, Calm Eyes: Yes: Conjunctiva Clear, EOM Intact HENT: Yes: Atraumatic, Normocephalic Neck: Yes: Supple, Trachea Midline Cardiovascular: Yes: Regular Rate and Rhythm, Tachycardia, S1, S2 Respiratory: Yes: Regular, CTA Bilaterally, Tachypnea Gastrointestinal: Yes: Normal Bowel Sounds, Soft, Abdomen, Obese. No: Hepatomegaly, Melena, Splenomegaly ...Rectal Exam: Yes: WNL Edema: No Peripheral Pulses WNL: Yes Neurological: Yes: Alert, Oriented Psychiatric: Yes: Alert, Oriented Labs: CBC, BMP 03/20/19 07:45 03/20/19 07:45 Problem List - Problems (1) Cerebrovascular accident (CVA) Assessment/Plan: CAV as presentation symptom on admission The patient's mental status is better, she is alert and oriented and can communicate. There is no focal deficit, speech and menttaion recovered on Plavix and ASA. will discuss anticoagulation with Neurology in view up necessary upcoming investigations for malignancy Code(s): I63.9 - CEREBRAL INFARCTION, UNSPECIFIED (2) Pulmonary cavitary lesion Assessment/Plan: patient had low grade fever and now her WBC is rising, possible infected lung cavity monitor WBC other etiologies to be excluded will check blood cultures X2 if temperature more then 101 need for bronchoscopy Code(s): J98.4 - OTHER DISORDERS OF LUNG (3) Thyroid nodule Assessment/Plan: thyroid status functionally ok nodularity to be investigated since "study can not be performed while inpatient?" as per Radiology Code(s): E04.1 - NONTOXIC SINGLE THYROID NODULE (4) NSTEMI (non-ST elevated myocardial infarction) Assessment/Plan: demand ischemia in the context of infection, poor oral intake, and dehydration Code(s): I21.4 - NON-ST ELEVATION (NSTEMI) MYOCARDIAL INFARCTION (5) Breast mass, right Assessment/Plan: mammography in am Code(s): N63.10 - UNSPECIFIED LUMP IN THE RIGHT BREAST, UNSPECIFIED QUADRANT
[2019-03-21] MEDS ORDERED: CLOPIDOGREL BISULFATE 75 MG TABLET (FP) PO SCH (10:00)
[2019-03-21] MEDS ORDERED: ASPIRIN 325 MG TABLET PO SCH (10:00)
--- NOTE | 2019-03-21 10:50 | PN ---
Progress Note (short form) - Note Progress Note: 74yo female with hx of arrhythmia presents with AMS x 4 days. Her sister reports first noticing a change when talking to her on the phone 4 days ago. She said she was "acting weird." She was not having aphasia. The sister said she later had difficulty making coffee that she normally makes every morning. Per ED note, she had a decrease in appetite as well. She reports having bilateral upper arm pain intermittently and generalized weakness. She denies fever, chills, chest pain, headache, and vomiting. She reports seeing a doctor in [facility] for an irregular heart beat but is not currently being treated. She is not anti-coagulated. FU today: no issues overnight , spacial neglect with some improvement PMD palpated breast mass CT noted -- suspicious for bony mets , LL lung mass CTA noted --no evidence of vascular anomalies, +sclerotic changes on thoracic VB noted BP stable communicating well STUDIES: CTA : Impression. Normal contour of the intracranial arterial vessels. Hypodense nodules are noted in the right lobe the thyroid gland. Enlarged right thyroid gland. Heterogeneous attenuation of the left lobe the thyroid with hypodense nodules. Thyroid ultrasound recommended. Sclerotic, blastic changes are noted in T1, T2, T4, T5 vertebral bodies. Left axillary lymph nodes are noted. MRI : Impression. Subacute enhancing infarct superior aspect of the right cerebellum. Acute cortical infarcts are observed in the right temporal temporal lobe, occipital lobe, to a lesser degree, left parietal lobe, left posterior temporal lobe, occipital lobe with restrictive changes on diffusion weighted weighted images, corresponding low signal intensity on the ADC, increased signal intensity of the strokes on the T2, FLAIR [place] - different vascular territories. Clinically correlate for vasculitis. MRA Impression. There is no evidence of aneurysm, vascular malformation or flow limiting stenosis. Impression. Patent common, internal, external carotid arteries, vertebral arteries, forming patent basilar artery.. Normal bifurcation of the common carotid arteries no stenotic lesions are seen. ECHO noted-WNL , has been in sinus - Smoking History Smoking history: Unknown if ever smoked Home Medications - Allergies Allergies/Adverse Reactions: Allergies Allergy/AdvReac Type Severity Reaction Status Date / Time Penicillins Allergy Verified 03/17/19 02:45 - Home Medications Home Medications: Ambulatory Orders Aspirin [ASA -] 81 mg PO DAILY 03/17/19 Physical Exam-Neuro Vital Signs: Vital Signs Temperature 98.4 F 03/21/19 04:00 Pulse Rate 114 H 03/21/19 10:00 Respiratory Rate 22 H 03/21/19 10:00 Blood Pressure 112/70 03/21/19 10:00 O2 Sat by Pulse Oximetry (%) 97 03/20/19 09:00 - Neuro Exam Level Of Consciousness: Yes: Alert (awake, alert, Left sided field cut, left sided neglect, mild left UE drift , ) NIH Stroke Scale - Last Known Well Date/Time & Onset Date Last Known Well: 03/13/19 - Initial Evaluation Level of consciousness: Alert Ask patient the month and their age: Answers both correctly Ask patient to open & close eyes; make fist and let go: Obeys both correctly Best gaze (horizontal eye movement): Normal Visual field testing: Complete hemianopia Facial paresis (Show teeth/raise eyebrows/close eyes tight): Normal symmetrical movement Motor Function: Left Arm: Drift Motor Function: Right Arm: Normal (extends arm 90 (or 45) degrees for 10 seconds without drift Motor Function: Left Leg: Normal (extends leg 30 degrees for 5 seconds without drift) Motor Function: Right Leg: Normal (extends leg 30 degrees for 5 seconds without drift) Limb Ataxia: No ataxia Sensory(Use pinprick test arms,legs,trunk,face/side to side): Mild to moderate decrease in sensation Best language (Describe picture, name items, read sentences): No Aphasia Dysarthria (read several words): Normal articulation Extinction and Inattention: Inattention or extinction bilaterally to one of the sensory modalities - Total Score NIH Stroke Scale Score: 5 Imaging - Results Cat Scan: Image Reviewed MRI: Report Reviewed, Image Reviewed Problem List - Problems (1) Cerebrovascular accident (CVA) Code(s): I63.9 - CEREBRAL INFARCTION, UNSPECIFIED (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 Her sister reports first noticing a change when talking to her on the phone 4 days ago. She said she was "acting weird." She was not having aphasia. The sister said she later had difficulty making coffee that she normally makes every morning. Per ED note, she had a decrease in appetite as well. She reports having bilateral upper arm pain intermittently and generalized weakness. She denies fever, chills, chest pain, headache, and vomiting. She reports seeing a doctor in [facility] for an irregular heart beat but is not currently being treated. She is not anti-coagulated. MRI : Impression. Subacute enhancing infarct superior aspect of the right cerebellum. Acute cortical infarcts are observed in the right temporal temporal lobe, occipital lobe, to a lesser degree, left parietal lobe, left posterior temporal lobe, occipital lobe with restrictive changes on diffusion weighted weighted images, corresponding low signal intensity on the ADC, increased signal intensity of the strokes on the T2, FLAIR [place] - different vascular territories. Clinically correlate for vasculitis. MRA Impression. There is no evidence of aneurysm, vascular malformation or flow limiting stenosis. Impression. Patent common, internal, external carotid arteries, vertebral arteries, forming patent basilar artery.. Normal bifurcation of the common carotid arteries no stenotic lesions are seen. AP : subacute encephalopathy found to have BL vegetable washer infarcts, on exam left sided neglect /field cut and drift ; suspect underlying relative hypercoag state given new findings of possible mets , primary unknown differential includes cardioembolic disease vs vascultis (less likely) vs +++ hypercoagable state MRA/CTA does not show sig changes suggestive of vasculitis INC alk phosh/LFTs/ CT with bony changes/+ breast mass- HEM ONC consult-- consider bone scan , await tissue DX check CT chest /mammo to ensure no malignancy/hypercoag state --FU THYROID US FRANKIE/HOLTER --P ASA/statin/PLAVIX, HEP SQ DR SHORT Problem List - Problems (1) Cerebrovascular accident (CVA) Code(s): I63.9 - CEREBRAL INFARCTION, UNSPECIFIED (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
--- NOTE | 2019-03-21 11:38 | PN ---
Progress Note (short form) - Note Progress Note: ID consult dictated imp/reccd 74 you female admitted 03/17 with confusion she was recently seen by Dr Raza after returning from [place] with a cough the cough was so severe she was unable to eat-lost 12 pounds minimal fevers she was treated with levaquin after which she improved- no cough she then became confused and was admitted on 03/17 with bilateral multiple CVA on head CT she was seen by cardiology and neurology work up to date includes multiple imaging studies that confirm multiple CVAS, echo and bubble test negative thyroid nodules, blastic changes T1, T2, T4, T5 vertebral bodies question of breast mass as well, left axillary node she has a history of positive PPD and has never been on prophylaxis 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 born in the [facility] , in the since 1967 has not really had very much medical followup last had bilateral cataract surgery 2 eyars ago noted on imaging to have a lower lobe cavitary mass no hemoptysis probable CVAs due to hyprcoaguable state from probable maligancy suspect will need biopsy agree with quantiferon would get coccidiodomycosis serology most likely malignancy as unifying diagnosis but would pursue bronchoscopy to r/ o infectious etiology as well patient is agreeable to HIV testing will order as well doubt TB or fungal disease but will get serology thanks Problem List - Problems (1) Cerebrovascular accident (CVA) Code(s): I63.9 - CEREBRAL INFARCTION, UNSPECIFIED (2) Pulmonary cavitary lesion Code(s): J98.4 - OTHER DISORDERS OF LUNG
--- NOTE | 2019-03-21 11:44 | CON.GI ---
Consult Consult Specialty:: Gastroenterology Referred by:: Dr Greer Raza Reason for Consultation:: Elevated alkaline phoshatase - History of Present Illness Chief Complaint: Admitted for altered mental status History of Present Illness: 74F admitted for altered mental status is found to have a right cerebellar infarct with left field cut and a LLL cavitary mass and sclerotic spinal metastases. She has preceding loss of appetite and weight loss. Her brother is battling lung cancer and is a colon cancer survivor. Sharyn has never had a colonoscopy. She recalls having acute hepatitis B and was told that she fully recovered. 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 She drinks alcohol once a week. No IVDA, tattoos or transfusions or transfusions. Liver CT is unremarkable. 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: CVA (acute right cerebellar ) Pulmonary: Yes: Other (new LLL cavitary lung mass) Gastrointestinal: Yes: Constipation Hepatobiliary: Yes: Hepatitis B (had acute Hep B 30 years ago) ...: No Musculoskeletal: Yes: Other (new blastic cervical and thoracic vertebral mets) Endocrine: Yes: Other (thyroid nodules) - Past Surgical History Past Surgical History: Yes: Cataract Removal (bilateral ), - Alcohol/Substance Use Hx Alcohol Use: Yes (once a week) History of Substance Use: reports: None - Smoking History Smoking history: Never smoked Have you smoked in the past 12 months: No - Social History Usual Living Arrangement: Alone ADL: Independent Occupation: [employer] Place of : Other ([facility]) Came to [place] (year): age 27 History of Recent Travel: No Home Medications - Allergies Allergies/Adverse Reactions: Allergies Allergy/AdvReac Type Severity Reaction Status Date / Time Penicillins Allergy Verified 03/17/19 02:45 - Home Medications Home Medications: Ambulatory Orders Aspirin [ASA -] 81 mg PO DAILY 03/17/19 Family Disease History - Family Disease History Family Disease History: CA: Brother (has lung ca, survived colon ca), Other: Father ( 89), Mother ( 90) Review of Systems - Review of Systems Constitutional: reports: Loss of Appetite, Unintentional Wgt. Loss Eyes: reports: Blind Spots HENT: reports: No Symptoms Neck: reports: No Symptoms Cardiovascular: reports: No Symptoms Respiratory: reports: No Symptoms Gastrointestinal: reports: Constipation (recent since losing amy appetite) Genitourinary: reports: No Symptoms Breasts: reports: No Symptoms Reported Musculoskeletal: reports: No Symptoms Physical Exam-GI Vital Signs: Vital Signs Temperature 98.4 F 03/21/19 04:00 Pulse Rate 114 H 03/21/19 10:00 Respiratory Rate 22 H 03/21/19 10:00 Blood Pressure 112/70 03/21/19 10:00 O2 Sat by Pulse Oximetry (%) 97 03/20/19 09:00 CBC,CMP WBC 10.5 K/mm3 (4.0-10.0) H 03/20/19 07:45 RBC 4.07 M/mm3 (3.60-5.2) 03/20/19 07:45 Hgb 12.5 GM/dL (10.7-15.3) 03/20/19 07:45 Hct 36.5 % (32.4-45.2) 03/20/19 07:45 MCV 89.8 fl (80-96) 03/20/19 07:45 MCH 30.7 pg (25.7-33.7) 03/20/19 07:45 MCHC 34.2 g/dl (32.0-36.0) 03/20/19 07:45 RDW 13.2 % (11.6-15.6) 03/20/19 07:45 Plt Count 116 K/MM3 (134-434) L 03/20/19 07:45 MPV 7.7 fl (7.5-11.1) 03/20/19 07:45 Absolute Neuts (auto) 7.8 K/mm3 (1.5-8.0) 03/20/19 07:45 Neutrophils % 74.6 % (42.8-82.8) 03/20/19 07:45 Lymphocytes % 12.4 % (8-40) D 03/20/19 07:45 Monocytes % 8.1 % (3.8-10.2) 03/20/19 07:45 Eosinophils % 4.3 % (0-4.5) 03/20/19 07:45 Basophils % 0.6 % (0-2.0) 03/20/19 07:45 Nucleated RBC % 0 % (0-0) 03/20/19 07:45 ESR 11 mm/hr (0-30) 03/18/19 05:25 Sodium 142 mmol/L (136-145) 03/20/19 07:45 Potassium 3.9 mmol/L (3.5-5.1) 03/20/19 07:45 Chloride 106 mmol/L (98-107) 03/20/19 07:45 Carbon Dioxide 30 mmol/L (21-32) 03/20/19 07:45 Anion Gap 6 MMOL/L (8-16) L 03/20/19 07:45 BUN 9.0 mg/dL (7-18) 03/20/19 07:45 Creatinine 0.7 mg/dL (0.55-1.3) 03/20/19 07:45 Est GFR (CKD-EPI)AfAm 100.32 03/20/19 07:45 Est GFR (CKD-EPI)NonAf 86.56 03/20/19 07:45 Random Glucose 94 mg/dL (74-106) 03/20/19 07:45 Hemoglobin A1c % 5.9 % (4.2-6.3) 03/17/19 07:22 Calcium 8.3 mg/dL (8.5-10.1) L 03/20/19 07:45 Phosphorus 3.8 mg/dL (2.5-4.9) 03/20/19 07:45 Magnesium 2.2 mg/dL (1.8-2.4) 03/20/19 07:45 Total Bilirubin 0.4 mg/dL (0.2-1) 03/17/19 07:55 GGT 88 U/L (5-85) H 03/17/19 07:55 AST 38 U/L (15-37) H 03/17/19 07:55 ALT 30 U/L (13-61) 03/17/19 07:55 Alkaline Phosphatase 315 U/L (45-117) H 03/17/19 07:55 Creatine Kinase 48 U/L (26-192) 03/20/19 07:45 Troponin I 0.23 ng/ml (0.00-0.05) H 03/20/19 07:45 C-Reactive Protein 7.3 MG/DL (0.00-0.3) H 03/17/19 20:35 Total Protein 7.0 g/dl (6.4-8.2) 03/17/19 07:55 Albumin 3.0 g/dl (3.4-5.0) L 03/17/19 07:55 Triglycerides 138 mg/dL (0-150) 03/17/19 07:55 Cholesterol 234 mg/dL (50-200) H 03/17/19 07:55 Total LDL Cholesterol 159 mg/dL (5-100) H 03/17/19 07:55 HDL Cholesterol 49 mg/dL (40-60) 03/17/19 07:55 TSH 6.37 uIU/ml (0.358-3.74) H 03/17/19 07:55 Free T4 1.14 ng/dl (0.76-1.46) 03/19/19 09:38 Current Medications Generic Name Dose Route Start Last Admin Trade Name Nik PRN Reason Stop Dose Admin Aspirin 325 mg 03/21/19 10:00 03/21/19 10:02 Asa - PO 325 mg DAILY SALO Administration Atorvastatin Calcium 80 mg 03/20/19 22:00 03/20/19 21:33 Lipitor - PO 80 mg HS SALO Administration Clopidogrel Bisulfate 75 mg 03/21/19 10:00 03/21/19 10:02 Plavix - PO 75 mg DAILY SALO Administration Constitutional: Yes: Calm Eyes: Yes: Conjunctiva Clear HENT: Yes: Normocephalic Neck: Yes: Trachea Midline Cardiovascular: Yes: Regular Rate and Rhythm Respiratory: Yes: CTA Bilaterally Gastrointestinal Inspection: Yes: Scars (healed Pfannensteil incision) ...Auscultate: Yes: Normoactive Bowel Sounds ...Palpate: Yes: Soft, Other (nontender) ...Rectal Exam: Yes: Deferred (setting is not private enough) Edema: No Peripheral Pulses WNL: Yes Neurological: Yes: Alert, Oriented Labs: CBC, BMP 03/20/19 07:45 03/20/19 07:45 Laboratory Tests 03/17/19 03/21/19 20:35 06:00 C-Reactive Protein 7.3 H Carcinoembryonic Ag Pending CA 15-3 Antigen Pending Laboratory Tests 03/17/19 07:55 GGT 88 H Imaging - Results Cat Scan: Report Reviewed ( Final Report CT CHEST CT WITHOUT CONTRAST Show Printer-Friendly Version Patient Name: Sharyn Martinez : 1944 ID: [id number] Study Date: 19-Mar-2019 16:24 Harry Marceol Name : SHARYN MARTINEZ DEPARTMENT OF RADIOLOGY Phys: Cathleen Rucker MD : 1944 Age: 74 Sex: F [facility] Acct: [id number] Loc: [address] Exam Date: 03/19/19 Status: [place] [address] Unit Number: [id number] EXAM#: TYPE/EXAM: RESULT: CT/ABDOMEN PELVIS CT W/O CONTR CT/CHEST CT WITHOUT CONTRAST HISTORY PROVIDED: Rule out primary malignancy. Sequential axial images were obtained from the thoracic inlet through the symphysis pubis following the administration of oral contrast material. Evaluation of the lung haas demonstrates a cavitary mass within the left lower lobe which measures 2.6 x 2.5 x 2.8 cm. The mass is suspicious for a malignancy, although an infectious process cannot be excluded. No additional pulmonary masses or areas of acute consolidation are identified. There is a small left pleural effusion with atelectatic changes at the left lung base. Examination of the mediastinum demonstrates no evidence of mediastinal masses, fluid collections or lymphadenopathy. The heart is not enlarged. The liver, spleen, pancreas, adrenal glands and kidneys demonstrate no significant abnormalities. The gallbladder is clear. There is no evidence of intra-abdominal or retroperitoneal lymphadenopathy or fluid collections. Examination of the pelvis demonstrates no evidence of pelvic masses, fluid collections or lymphadenopathy. There are sclerotic changes involving multiple vertebral bodies within the lower cervical, thoracic and lumbar spine. This is suspicious for bony metastases. IMPRESSION: 1. Cavitary left lower lobe mass suspicious for malignancy, although an infectious process cannot be excluded. 2. Small left pleural effusion and basilar atelectasis. 3. No evidence of occult malignancy or acute pathology within the abdomen or pelvis. 4. Suspected bone metastases. Please see above discussion. Reported By: Antonio Coronado MD 114 Technologist: Letty [place] Transcribed Date/Time: 03/20/19 114 Hand Reamer: Antonio Coronado Printed Date/Time: By: Signed by: Antonio Coronado Signed on: 20-Mar-2019 11:43) Problem List - Problems (1) Alkaline phosphatase elevation Assessment/Plan: The disproportionately high elevation of alkaline phosphatase relative to the GGTP elevation suggests that this is bony origin and likely from the bone metastases Code(s): R74.8 - ABNORMAL LEVELS OF OTHER SERUM ENZYMES (2) Hepatitis B virus infection Assessment/Plan: Will need to assess the status of her HBV. I will check PCR. She may need suppression therapy is chemotherapy and particulalry if agents such as Rituxin are considered necessary. Will also check the AFP and she is predisposed to hepaticellular carcinoma Code(s): B19.10 - UNSPECIFIED VIRAL HEPATITIS B WITHOUT HEPATIC COMA (3) Pulmonary cavitary lesion Code(s): J98.4 - OTHER DISORDERS OF LUNG (4) Thyroid nodule Code(s): E04.1 - NONTOXIC SINGLE THYROID NODULE (5) Family history of colon cancer Assessment/Plan: Should ideally have a screening colonoscopy but will to defer given her recent CVA Code(s): Z80.0 - FAMILY HISTORY OF MALIGNANT NEOPLASM OF DIGESTIVE ORGANS (6) Weight loss Code(s): R63.4 - ABNORMAL WEIGHT LOSS Assessment/Plan Assessment: - The disproportionately high elevation of alkaline phosphatase relative to the GGTP elevation suggests that this is bony origin and likely from the bone metastases - Will need to assess the status of her HBV. I will check PCR. She may need suppression therapy is chemotherapy and particulalry if agents such as Rituxin are considered necessary. Will also check the AFP and she is predisposed to hepaticellular carcinoma - Should ideally have a screening colonoscopy but will to defer given her recent CVA - Constipation due to poor oral intake likely due to lung cancer or perhaps hepatocellular cancer Plan: -- Viral hepatitis screening and HBC PCR testing and AFP will be ordered -- Miralax
--- NOTE | 2019-03-21 12:04 | PN ---
Teaching Attending Note Name of Resident: Mark Allen ATTENDING PHYSICIAN STATEMENT I saw and evaluated the patient. I reviewed the resident's note and discussed the case with the resident. I agree with the resident's findings and plan as documented. SUBJECTIVE: Patient seen and examined in the ICU. Awake and alert. No CP or SOB. No acute events overnight. OBJECTIVE: Intake & Output 03/18/19 03/19/19 03/20/19 03/21/19 23:59 23:59 23:59 23:59 Intake Total 2125 1710 600 Balance 2125 1710 600 Weight 132 lb 12.8 oz 132 lb Last Vital Signs Temp Pulse Resp BP Pulse Ox 98.4 F 114 H 22 H 112/70 97 03/21/19 04:00 03/21/19 10:00 03/21/19 10:00 03/21/19 10:00 03/20/19 09:00 Active Medications Aspirin (Asa -) 325 mg PO DAILY [facility] Last Admin: 03/21/19 10:02 Dose: 325 mg Atorvastatin Calcium (Lipitor -) 80 mg PO [facility] Last Admin: 03/20/19 21:33 Dose: 80 mg Clopidogrel Bisulfate (Plavix -) 75 mg PO DAILY [facility] Last Admin: 03/21/19 10:02 Dose: 75 mg Gen: NAD at rest Heart: RRR Lung: decreased breath sounds at the bases Abd: soft, nontender Ext: no edema GIN FEEDER: awake and alert, non-focal exam ASSESSMENT AND PLAN: Acute CVA: suspected likely embolic R/O Malignancy Abnormal thyroid nodules +Troponins likely Demand Ischemia h/o Valvular Disease Possible sclerotic/blastic lesions T1,T2, T3, T4. Enlarged lymph nodes in the left axilla. 2 hypodense areas in the thyroid gland. - Will need oncologic work up - ASA & Plavix - Statin - Cardiology follow up for FRANKIE - VTE prophylaxis - D/C planning Dr Sainz
--- NOTE | 2019-03-21 14:39 | PN ---
Physical Exam: SUBJECTIVE: Patient seen and examined at the bedside. She did not have any acute events. States that she feels better and that her headaches have subsided. Denies any new weakness, numbness, tingling, visual changes, balance problems. Denies chest pain, sob, abd pain, n/v/c/d. Stable for transfer to telemetry. OBJECTIVE: Vital Signs Period Temp Pulse Resp BP Sys/Gay Pulse Ox Last 24 Hr 98.4 F-98.4 F 87-114 20-23 112-126/70-95 GENERAL: The patient is awake, alert, and fully oriented, in no acute distress. HEAD: Normal with no signs of trauma. EYES: PERRL, extraocular movements intact, sclera anicteric, conjunctiva clear. No ptosis. NECK: Trachea midline, full range of motion, supple. LUNGS: Breath sounds equal, clear to auscultation bilaterally, no wheezes, no crackles, no accessory muscle use. HEART: Regular rate and rhythm, S1, S2 without murmur, rub or gallop. ABDOMEN: Soft, nontender, nondistended, normoactive bowel sounds, no guarding, no rebound, no masses. EXTREMITIES: 2+ pulses, warm, well-perfused, no edema. NEUROLOGICAL: Cranial nerves II through XII grossly intact. Normal speech, gait not observed. Visual field cut in the L field PSYCH: Normal mood, normal affect. SKIN: Warm, dry, normal turgor, no rashes or lesions noted. Active Medications Generic Name Dose Route Start Last Admin Trade Name Freq PRN Reason Stop Dose Admin Aspirin 325 mg 03/21/19 10:00 03/21/19 10:02 Asa - PO 325 mg DAILY SALO Administration Atorvastatin Calcium 80 mg 03/20/19 22:00 03/20/19 21:33 Lipitor - PO 80 mg HS SALO Administration Clopidogrel Bisulfate 75 mg 03/21/19 10:00 03/21/19 10:02 Plavix - PO 75 mg DAILY SALO Administration Pantoprazole Sodium 40 mg 03/22/19 10:00 Protonix - PO DAILY SALO Polyethylene Glycol 17 gm 03/22/19 10:00 Miralax (For Daily Use) - PO DAILY SALO ASSESSMENT/PLAN: Ally Martinez is a 74y/o female with a PMHx of arrhythmia who presented to the ICU after having altered mental status and weakness secondary to multiple strokes. 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 Black consulted recs appreciated CARDIOLOGY - no acute events noted on monitor - stated had a history of an irregular heartbeat - Echo showing normal left and right ventricles, EF 60-65%, no shunt - Dr. Shine consulted recs appreciated - troponinemia likely in the setting of demand ischemia, trops peaked - will require a Holter monitor when discharged - FRANKIE scheduled for Wednesday 03/21 - no evidence of DVT RESPIRATORY - CT showed cavitary lesions in L lung - TB test pending - may need biopsy of lung lesion RENAL - no acute issues GASTROINTESTINAL - abdominal MRI to evaluate for malignancy - hepatitis panel pending GENITOURINARY - no acute issues INFECTIOUS DISEASE - no acute issues ENDOCRINE - TSH 6.37, T4 1.14 - may need thyroid biopsy HEMATOLOGY - alk phos elevated - CEA, CA 15-3 pending - possible bone metastasis - bone scan ordered - discuss with IR feasability of bone biopsy - may need biopsy of lung lesion MUSCULOSKELETAL - no acute issues PSYCHIATRY - no acute issues F/E/N - no standing fluids - continue to monitor for electrolytes deficiencies and replete as necessary - Low fat diet PROPHYLAXIS - heparin subq bid CODE - full code DISPO - stable for transfer to telemetry CASE DISCUSSED WITH DR. JAIN AND PRIMARY TEAM JUAN MANUEL ADAMES DO - PGY-1 INTERNAL MEDICINE Visit type - Emergency Visit Emergency Visit: No - New Patient This patient is new to me today: Yes Date on this admission: 03/21/19 - Critical Care Critical Care patient: Yes Total Critical Care Time (in minutes): 35 Critical Care Statement: The care of this patient involved high complexity decision making to prevent further life threatening deterioration of the patient 's condition and/or to evaluate & treat vital organ system(s) failure or risk of failure.
--- NOTE | 2019-03-21 15:27 | PN ---
Progress Note (short form) - Note Progress Note: Patient currently at bone scan. Sinus on tele. Will be evaluated in am but keep patient NPO for tentative plan for FRANKIE with Dr. Pena tomorrow morning
--- NOTE | 2019-03-21 17:09 | PN ---
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 Cavitary lung lesion Left axillary adenopathy Right nipple discharge Blastic bone lesions Last Vital Signs Temp Pulse Resp BP Pulse Ox 98.4 F 109 H 22 H 126/95 97 03/21/19 04:00 03/21/19 13:50 03/21/19 13:50 03/21/19 13:50 03/20/19 09:00 HEENT: VIKRAM, EOM Intact Oropharynx: No thrush, No mucositis Neck: Supple Nodes: large firm left axillary node Breasts: inverted right nipple with right retro-areolar fullness Cor: RSR, No murmurs, No gallops Lungs: Clear to P&A Abd: Soft, Normal bowel sounds, No organomegaly Ext:No significant edema Skin: No rashes, Integument intact CBC, BMP 03/20/19 07:45 03/20/19 07:45 Current Medications Generic Name Dose Route Start Last Admin Trade Name Freq PRN Reason Stop Dose Admin Aspirin 325 mg 03/22/19 10:00 Asa - PO DAILY SALO Atorvastatin Calcium 80 mg 03/21/19 22:00 Lipitor - PO HS SALO Clopidogrel Bisulfate 75 mg 03/22/19 10:00 Plavix - PO DAILY SALO Heparin Sodium (Porcine) 5,000 unit 03/21/19 22:00 Heparin - SQ BID SALO Pantoprazole Sodium 40 mg 03/22/19 10:00 Protonix - PO DAILY SALO Polyethylene Glycol 17 gm 03/22/19 10:00 Miralax (For Daily Use) - PO DAILY SALO Impression: Cavitary lung lesion Bone mets Left axillary node Right nipple discharge with inverted nipple and retroareolar fullness Suggest Axillary sono Consider biopsy of same based upon results MRI of spine pending bone scan Unfortunately on ASA and Plavix and any biopsy for tissue will need to be delayed
--- NOTE | 2019-03-21 18:46 | CONS ---
INFECTIOUS DISEASE CONSULTATION DATE OF CONSULTATION: DATE OF DICTATION: 03/21/2019 REQUESTING PHYSICIAN: Greer Raza MD This is a 74-year-old woman who was admitted on March 17 with complaints of confusion. She was brought in by her daughter. There is no history of any fevers or chills. She had recently taken a course of Levaquin for a cough. She gives a history of having had an irregular heart rate in the past. She has recently started seeing Dr. Raza just in February after she returned from a trip from [place]. 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 She retired 2 years ago from the [employer], and she frequently travels and likes to go to the [facility]. She has made 2 trips recently to [place], 1 in December and again in February. After the return on February 12, she started having coughing. Her prior trip to that, she went on a cruise in November from November 06 to [address] [facility]. She was born in the [facility]. 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 She has never been treated. She denies any history of active TB. She has been living in this country since 1967. She has never had a colonoscopy in the past, and she has had a mammogram she thinks about 15 years ago. She had a cough in February; for which, she took the Levaquin. Since then, the cough has resolved. She reports a weight loss of 12 pounds, that she reports was secondary to inability to eat due to the coughing. She denies a history of smoking, but does admit to second-hand smoke, primarily at the [facility] [address]. Her workup to date at the hospital included a CAT scan in the emergency room, that confirmed multiple CVAs which were thought to be possibly cardiac and embolic in origin. She had an echo and a bubble test that were negative. She had a workup for vasculitis, that included MRAs and CTAs. She was found to have thyroid nodules, blastic lesions in T1, T2, T4, and T5 vertebral bodies; question of a breast mass as well as a left axillary node. She has not really had much medical followup in the past. She was noted on CAT scan to have a left lower lobe cavitary mass; for which, we are asked to see her. There is no history of any hemoptysis. ALLERGIES: She is allergic to PENICILLIN. She has no idea what the nature of the allergy is. MEDICATIONS: She was taking Zyrtec at home and aspirin. PAST MEDICAL HISTORY: She has had bilateral cataract surgery. She has a history of positive PPD; for which, she has never received any prophylaxis. She has a history of this unspecified cardiac arrhythmia. SOCIAL HISTORY: She is . She has a daughter who is 30. There is no history of cigarette, alcohol, or substance use. 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 REVIEW OF SYSTEMS: Notable for the weight loss. She denies any nausea or vomiting. She denies fevers or chills. She denies hemoptysis or any productive cough. PHYSICAL EXAMINATION: General: She is awake and alert. Vital Signs: Temperature is 98.4, pulse of 109, blood pressure 126/95, respiratory rate is 22. HEENT: She is normocephalic. Her eyes are anicteric. Her dentition is fair. She has no thrush. Neck: Supple. Axilla: She has a palpable left axillary node. Breasts: She has an inverted right nipple which she has had for 10 years. Question of a breast mass on her left breast. Abdomen: Soft, nontender. Extremities: Without edema. LABORATORY DATA: Notable for a white count of 10.5, hemoglobin 12.5, platelets of 116. BUN is 9 and creatinine 0.7. Troponins peaked at 1.8. She has LFTs that are notable for an alkaline phosphatase of 315. CRP of 7.3. Her urinalysis is negative. Her CICI is 1 to 160. In summary, this is a 74-year-old woman admitted with multiple cerebrovascular accidents, who I suspect has this on the basis of hypercoagulable state from most likely malignancy. I suspect she will need a biopsy. I would agree with a QuantiFERON. Would get coccidioidomycosis serology given her travel to [place] and recent cough as well as the cavitary mass which I suspect most likely is malignant. Would pursue bronchoscopy to rule out infectious as well as malignant cause. Patient is agreeable to HIV testing which I will order. I doubt TB or fungal disease, but we will get serology. Further recommendations to follow. Davidson ROMAN/[id number]
[2019-03-21] MEDS: ATORVASTATIN CA 80 MG TABLET (FP) PO SCH (22:29)
[2019-03-21] MEDS: HEPARIN NA (PORCINE) 5,000 UNITS/ML 1ML VIAL SQ SCH (22:29)
[2019-03-22 03:11] LABS: CARCINOEMBRYONIC ANTIGEN 86.8 ng/mL (0.0-4.7)
[2019-03-22 08:19] LABS: BASO % 0.4 % (0-2.0); EOS % 2.2 % (0-4.5); HEMATOCRIT 38.2 % (32.4-45.2); HEMOGLOBIN 12.7 GM/dL (10.7-15.3); LYMPH % 15.1 % (8-40); MCH 30.3 pg (25.7-33.7); MCHC 33.3 g/dl (32.0-36.0); MEAN CELL VOLUME 90.8 fl (80-96); MEAN PLT VOLUME 7.9 fl (7.5-11.1); MONO % 6.1 % (3.8-10.2); NEUT % 76.2 % (42.8-82.8); RBC 4.21 M/mm3 (3.60-5.2); WHITE BLOOD COUNT 11.5 K/mm3 (4.0-10.0)
[2019-03-22 08:51] LABS: ALBUMIN 3.1 g/dl (3.4-5.0); BILIRUBIN,TOTAL 0.4 mg/dL (0.2-1); BLOOD UREA NITROGEN 10.1 mg/dL (7-18); CALCIUM 8.8 mg/dL (8.5-10.1); CREATININE 0.8 mg/dL (0.55-1.3); POTASSIUM 3.7 mmol/L (3.5-5.1); TOT PROT 6.9 g/dl (6.4-8.2)
[2019-03-22 09:55] LABS: PLATELET COUNT 135 K/MM3 (134-434)
[2019-03-22] MEDS ORDERED: POLYETHYLENE GLYCOL 3350 119 GM BTL PO SCH (10:00)
[2019-03-22] MEDS ORDERED: CLOPIDOGREL BISULFATE 75 MG TABLET (FP) PO SCH (10:00)
[2019-03-22] MEDS ORDERED: PANTOPRAZOLE 40 MG TABLET (FP) PO SCH (10:00)
--- NOTE | 2019-03-22 10:56 | PN ---
Progress Note, CRO - Note Progress Note: Medical events noted/w/u in progress. Mammo, u/s noted. Selected Entries 03/21/19 03/21/19 03/21/19 02:00 04:00 17:00 Supper Temperature 98.4 F 98.4 F 98.0 F 03/21/19 03/21/19 03/22/19 19:25 21:00 01:40 Supper 100% Temperature 98.6 F 97.8 F 03/22/19 03/22/19 05:00 09:00 Supper Temperature 98.2 F 98 F Laboratory Tests 03/22/19 07:00 WBC 11.5 H Tolerating diet without difficulty. Oriented except for year "1988"
--- NOTE | 2019-03-22 12:32 | PN ---
Progress Note, Physician History of Present Illness: pt seen and examined today in [facility]. FRANKIE had to be cancelled as pt ate just prior to exam. no new complaints. - Current Medication List Current Medications: Active Medications Aspirin (Asa -) 325 mg PO DAILY [facility] Atorvastatin Calcium (Lipitor -) 80 mg PO HS [facility] Last Admin: 03/21/19 22:29 Dose: 80 mg Clopidogrel Bisulfate (Plavix -) 75 mg PO DAILY [facility] Heparin Sodium (Porcine) (Heparin -) 5,000 unit SQ BID [facility] Last Admin: 03/21/19 22:29 Dose: 5,000 unit Pantoprazole Sodium (Protonix -) 40 mg PO DAILY [facility] Polyethylene Glycol (Miralax (For Daily Use) -) 17 gm PO DAILY [facility] - Objective Vital Signs: Vital Signs Temperature 98 F 03/22/19 09:00 Pulse Rate 90 03/22/19 09:00 Respiratory Rate 19 03/22/19 09:00 Blood Pressure 109/77 03/22/19 09:00 O2 Sat by Pulse Oximetry (%) 97 03/21/19 21:00 Constitutional: Yes: No Distress, Calm Eyes: Yes: Conjunctiva Clear, EOM Intact HENT: Yes: Normocephalic Neck: Yes: Supple Cardiovascular: Yes: Regular Rate and Rhythm Respiratory: Yes: Regular Gastrointestinal: Yes: Normal Bowel Sounds Edema: No Neurological: Yes: Alert, Oriented Psychiatric: Yes: Alert, Oriented Labs: CBC, BMP 03/22/19 07:00 03/22/19 07:00 - ....Imaging Chest X-ray: Report Reviewed, Image Reviewed EKG: Report Reviewed, Image Reviewed Other: Report Reviewed, Image Reviewed Assessment/Plan Possible cardio-embolic stroke. Continue telemetry-if normal tele, will plan for out patient holter or implantable loop recorder. Echocardiogram showed normal LV function without pulm HTN. Possible blastic Thoracic spine lesions. -on ASA, Plavix, statin for CVA -stroke work up as per neuro reccs, hypercoagluable/onc work up -echo with bubbles showed no evidence of intracardiac shunt -FRANKIE could not be done today as pt ate just prior to scheduled exam -FRANKIE is not urgent and can likely be done as outpatient, If it can be scheduled again while she is an inpatient will re-attempt. -cont work up as per primary team -Elevated troponin managed medically at this time. 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
[2019-03-22] MEDS: PANTOPRAZOLE 40 MG TABLET (FP) PO SCH (14:09)
[2019-03-22] MEDS: ASPIRIN 325 MG TABLET PO SCH (14:09)
[2019-03-22] MEDS: HEPARIN NA (PORCINE) 5,000 UNITS/ML 1ML VIAL SQ SCH ×2 (14:09→21:38)
[2019-03-22] MEDS: POLYETHYLENE GLYCOL 3350 119 GM BTL PO SCH (14:22)
[2019-03-22 16:12] LABS: ATYPICAL pANCA <1:20 titer (Neg:<1:20); C-ANCA <1:20 titer (Neg:<1:20)
--- NOTE | 2019-03-22 16:15 | PN ---
Progress Note (short form) - Note Progress Note: 74yo female with hx of arrhythmia presents with AMS x 4 days. Her sister reports first noticing a change when talking to her on the phone 4 days ago. She said she was "acting weird." She was not having aphasia. The sister said she later had difficulty making coffee that she normally makes every morning. Per ED note, she had a decrease in appetite as well. She reports having bilateral upper arm pain intermittently and generalized weakness. She denies fever, chills, chest pain, headache, and vomiting. She reports seeing a doctor in [facility] for an irregular heart beat but is not currently being treated. She is not anti-coagulated. FU today: no issues overnight unable to get FRANKIE today bc of was not npo CT noted -- suspicious for bony mets , LL lung mass CTA noted --no evidence of vascular anomalies, +sclerotic changes on thoracic VB noted BP stable communicating well, STUDIES: CTA : Impression. Normal contour of the intracranial arterial vessels. Hypodense nodules are noted in the right lobe the thyroid gland. Enlarged right thyroid gland. Heterogeneous attenuation of the left lobe the thyroid with hypodense nodules. Thyroid ultrasound recommended. Sclerotic, blastic changes are noted in T1, T2, T4, T5 vertebral bodies. Left axillary lymph nodes are noted. MRI : Impression. Subacute enhancing infarct superior aspect of the right cerebellum. Acute cortical infarcts are observed in the right temporal temporal lobe, occipital lobe, to a lesser degree, left parietal lobe, left posterior temporal lobe, occipital lobe with restrictive changes on diffusion weighted weighted images, corresponding low signal intensity on the ADC, increased signal intensity of the strokes on the T2, FLAIR [place] - different vascular territories. Clinically correlate for vasculitis. MRA Impression. There is no evidence of aneurysm, vascular malformation or flow limiting stenosis. Impression. Patent common, internal, external carotid arteries, vertebral arteries, forming patent basilar artery.. Normal bifurcation of the common carotid arteries no stenotic lesions are seen. ECHO noted-WNL , has been in sinus - Smoking History Smoking history: Unknown if ever smoked Home Medications - Allergies Allergies/Adverse Reactions: Allergies Allergy/AdvReac Type Severity Reaction Status Date / Time Penicillins Allergy Verified 03/17/19 02:45 - Home Medications Home Medications: Ambulatory Orders Aspirin [ASA -] 81 mg PO DAILY 03/17/19 Physical Exam-Neuro Vital Signs: Vital Signs Temperature 98.1 F 03/22/19 14:00 Pulse Rate 101 H 03/22/19 14:00 Respiratory Rate 19 03/22/19 09:00 Blood Pressure 135/90 03/22/19 14:00 O2 Sat by Pulse Oximetry (%) 97 03/21/19 21:00 - Neuro Exam Level Of Consciousness: Yes: Alert (awake, alert, Left sided field cut, left sided neglect, mild left UE drift , ) NIH Stroke Scale - Last Known Well Date/Time & Onset Date Last Known Well: 03/13/19 - Initial Evaluation Level of consciousness: Alert Ask patient the month and their age: Answers both correctly Ask patient to open & close eyes; make fist and let go: Obeys both correctly Best gaze (horizontal eye movement): Normal Visual field testing: Complete hemianopia Facial paresis (Show teeth/raise eyebrows/close eyes tight): Normal symmetrical movement Motor Function: Left Arm: Drift Motor Function: Right Arm: Normal (extends arm 90 (or 45) degrees for 10 seconds without drift Motor Function: Left Leg: Normal (extends leg 30 degrees for 5 seconds without drift) Motor Function: Right Leg: Normal (extends leg 30 degrees for 5 seconds without drift) Limb Ataxia: No ataxia Sensory(Use pinprick test arms,legs,trunk,face/side to side): Mild to moderate decrease in sensation Best language (Describe picture, name items, read sentences): No Aphasia Dysarthria (read several words): Normal articulation Extinction and Inattention: Inattention or extinction bilaterally to one of the sensory modalities - Total Score NIH Stroke Scale Score: 5 Imaging - Results Cat Scan: Image Reviewed MRI: Report Reviewed, Image Reviewed Problem List - Problems (1) Cerebrovascular accident (CVA) Code(s): I63.9 - CEREBRAL INFARCTION, UNSPECIFIED (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 Her sister reports first noticing a change when talking to her on the phone 4 days ago. She said she was "acting weird." She was not having aphasia. The sister said she later had difficulty making coffee that she normally makes every morning. Per ED note, she had a decrease in appetite as well. She reports having bilateral upper arm pain intermittently and generalized weakness. She denies fever, chills, chest pain, headache, and vomiting. She reports seeing a doctor in [facility] for an irregular heart beat but is not currently being treated. She is not anti-coagulated. MRI : Impression. Subacute enhancing infarct superior aspect of the right cerebellum. Acute cortical infarcts are observed in the right temporal temporal lobe, occipital lobe, to a lesser degree, left parietal lobe, left posterior temporal lobe, occipital lobe with restrictive changes on diffusion weighted weighted images, corresponding low signal intensity on the ADC, increased signal intensity of the strokes on the T2, FLAIR [place] - different vascular territories. Clinically correlate for vasculitis. MRA Impression. There is no evidence of aneurysm, vascular malformation or flow limiting stenosis. Impression. Patent common, internal, external carotid arteries, vertebral arteries, forming patent basilar artery.. Normal bifurcation of the common carotid arteries no stenotic lesions are seen. 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, on exam left sided neglect /field cut and drift ; suspect underlying relative hypercoag state given new findings of possible mets , primary unknown differential includes cardioembolic disease vs vascultis (less likely) vs +++ hypercoagable state MRA/CTA does not show sig changes suggestive of vasculitis INC alk phosh/LFTs/ CT with bony changes/+ breast mass- HEM ONC consult-- consider bone scan mammo + r breats mass FRANKIE/HOLTER --P ASA/statin--hold plavix so biopsy can be initiated DR SHORT Problem List Problem List - Problems (1) Cerebrovascular accident (CVA) Code(s): I63.9 - CEREBRAL INFARCTION, UNSPECIFIED (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
--- NOTE | 2019-03-22 18:40 | PN ---
Progress Note, Physician Chief Complaint: Patient admitted initially with AMS dur to acute multiple strokes was found to have right breast mass, and bony lesions suggestive of metastases. 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 Findings were positive for NSTEMI MRI and acute stroke. A ct scan of the lungs showed cavity lesion in the left lung bone scan suggested metastatic bone lesions. Mammography identified a right breast mass higgly suspicious for cancer. Patient is currently taking Plavix and ASA after the NSTEMI and acute strokes. - Current Medication List Current Medications: Active Medications Aspirin (Asa -) 325 mg PO DAILY [facility] Last Admin: 03/22/19 14:09 Dose: 325 mg Atorvastatin Calcium (Lipitor -) 80 mg PO HS [facility] Last Admin: 03/21/19 22:29 Dose: 80 mg Heparin Sodium (Porcine) (Heparin -) 5,000 unit SQ BID [facility] Last Admin: 03/22/19 14:09 Dose: 5,000 unit Pantoprazole Sodium (Protonix -) 40 mg PO DAILY [facility] Last Admin: 03/22/19 14:09 Dose: 40 mg Polyethylene Glycol (Miralax (For Daily Use) -) 17 gm PO DAILY [facility] Last Admin: 03/22/19 14:22 Dose: Not Given - Objective Vital Signs: Vital Signs Temperature 98.1 F 03/22/19 14:00 Pulse Rate 101 H 03/22/19 14:00 Respiratory Rate 19 03/22/19 09:00 Blood Pressure 135/90 03/22/19 14:00 O2 Sat by Pulse Oximetry (%) 97 03/22/19 09:00 Constitutional: Yes: No Distress, Calm Eyes: Yes: Conjunctiva Clear, EOM Intact HENT: Yes: Atraumatic, Normocephalic Neck: Yes: Supple, Trachea Midline Cardiovascular: Yes: Regular Rate and Rhythm, S1, S2 Respiratory: Yes: Regular, CTA Bilaterally. No: Rhonchi, SOB, Wheezes Gastrointestinal: Yes: Normal Bowel Sounds, Soft. No: Hepatomegaly, Splenomegaly, Tenderness Breast(s): Yes: Right, Discharge from Nipple (right) Extremities: No: Calf Tenderness Edema: No Peripheral Pulses WNL: Yes Neurological: Yes: Alert, Oriented, Weakness Psychiatric: Yes: Alert, Oriented Labs: CBC, BMP 03/22/19 07:00 07/16/19 07:00 Problem List - Problems (1) Breast mass, right Assessment/Plan: right breast mass and bone scan positive for bone mets breast biopsy requested and pending Plavix clearance, Code(s): N63.10 - UNSPECIFIED LUMP IN THE RIGHT BREAST, UNSPECIFIED QUADRANT (2) Cerebrovascular accident (CVA) Assessment/Plan: CVA as presentation symptom on admission The patient's mental status is better, she is alert and oriented and can communicate. There is no focal deficit, speech and mentation recovered Plavix placed on hold today in view of breast biopsy while continuing ASA. Code(s): I63.9 - CEREBRAL INFARCTION, UNSPECIFIED (3) Pulmonary cavitary lesion Assessment/Plan: patient had low grade fever and now her WBC is rising, possible infected lung cavity monitor WBC other etiologies to be excluded will check blood cultures X2 if temperature more then 101 bronchoscopy not necessary since the site of origin seems to be the breast Code(s): J98.4 - OTHER DISORDERS OF LUNG (4) Thyroid nodule Assessment/Plan: thyroid status functionally ok nodularity to be investigated since "study can not be performed while inpatient?" as per Radiology Code(s): E04.1 - NONTOXIC SINGLE THYROID NODULE (5) NSTEMI (non-ST elevated myocardial infarction) Assessment/Plan: demand ischemia in the context of infection, poor oral intake, and dehydration Code(s): I21.4 - NON-ST ELEVATION (NSTEMI) MYOCARDIAL INFARCTION
--- NOTE | 2019-03-22 19:43 | PN ---
Progress Note (short form) - Note Progress Note: Patient seen and examined Underwent mammography and sono of left axilla Mammography - strongly suspicious for right breast retro-arelar mass/ca Sono of left axilla strongly suspicious for mets. The large metastatic left axillary node in absence of left breast mass raises possibility of contralateral met or small left breast ca not appreciatied on mammography. Bone scan reveals extensive spine mets, pelvic mets and left femur met. Will need MRI of cervical, thoracic, and lumbosacral spine. Will need left femur x-ray. The initial MRI of the brain raised concern for leptomeningeal involvement along the greater convexity. Will need to review with neuro-radiology to see if LP indicated for carcinomatous meningitis. Plan: as above MRI of spine; x-rays left femur; review of MRI of brain. Have spoken with patient, with nephew and sister at bedside and discussed strong possibility of breast cancer which has spread . Will need tissue as next step.
--- NOTE | 2019-03-22 19:45 | PN ---
GI Progress Note Subjective: GI NOte: Viral hepatitis studies are pending. Bone scan confirms bone metastases as the cause of the elevated alkaline phosphatase. NO BM yet. Getting Miralax - Objective Vital Signs: Vital Signs Temperature 98 F 03/22/19 17:00 Pulse Rate 98 H 03/22/19 17:00 Respiratory Rate 20 03/22/19 17:00 Blood Pressure 126/84 03/22/19 17:00 O2 Sat by Pulse Oximetry (%) 97 03/22/19 09:00 Laboratory Tests 03/21/19 03/22/19 03/22/19 06:00 06:30 07:00 Total Bilirubin 0.4 Alkaline Phosphatase 374 H Tumor Marker AFP Pending Carcinoembryonic Ag 86.8 H CA 15-3 Antigen 202.9 H Hep A IgM Ab Confirm Pending Hepatitis A Ab Total Pending HBV Chronic w/Rflx to Conf Pending Hep Bs Antigen Pending Hep Bs Antibody Pending Hep B Core Total Ab Pending Hep B Core IgM Ab Pending Hep B DNA log10 telescope maintenance/mL Pending Hepatitis B DNA (PCR) Pending Hep B DNA (Units/mL) Pending Hepatitis B Genotype Pending Hepatitis Be Antibody Pending Hepatitis Be Antigen Pending Hep C Ab Diagnostic Pending Constitutional: No Distress Gastrointestinal Inspection: Yes: WNL ...Auscultate: Yes: Normoactive Bowel Sounds ...Palpate: Yes: Soft, Other (nontender) Labs: CBC, BMP 03/22/19 07:00 03/22/19 07:00 Assessment/Plan Assessment: - The disproportionately high elevation of alkaline phosphatase relative to the GGTP elevation due to the bone metastases - Will need to assess the status of her HBV. I will check PCR. She may need suppression therapy is chemotherapy and particulalry if agents such as Rituxin are considered necessary. Will also check the AFP and she is predisposed to hepatocellular carcinoma - Should ideally have a screening colonoscopy but will to defer given her recent CVA - Constipation due to poor oral intake likely due to lung cancer or perhaps hepatocellular cancer Plan: -- Viral hepatitis screening and HBC PCR testing and AFP pending -- Miralax Problem List - Problems (1) Alkaline phosphatase elevation Code(s): R74.8 - ABNORMAL LEVELS OF OTHER SERUM ENZYMES (2) Hepatitis B virus infection Code(s): B19.10 - UNSPECIFIED VIRAL HEPATITIS B WITHOUT HEPATIC COMA (3) Pulmonary cavitary lesion Code(s): J98.4 - OTHER DISORDERS OF LUNG (4) Thyroid nodule Code(s): E04.1 - NONTOXIC SINGLE THYROID NODULE (5) Family history of colon cancer Code(s): Z80.0 - FAMILY HISTORY OF MALIGNANT NEOPLASM OF DIGESTIVE ORGANS (6) Weight loss Code(s): R63.4 - ABNORMAL WEIGHT LOSS
[2019-03-22] MEDS: ATORVASTATIN CA 80 MG TABLET (FP) PO SCH (21:38)
[2019-03-23] MEDS: PANTOPRAZOLE 40 MG TABLET (FP) PO SCH (10:40)
[2019-03-23] MEDS: ASPIRIN 325 MG TABLET PO SCH (10:40)
[2019-03-23] MEDS: HEPARIN NA (PORCINE) 5,000 UNITS/ML 1ML VIAL SQ SCH ×2 (10:40→21:34)
[2019-03-23] MEDS: POLYETHYLENE GLYCOL 3350 119 GM BTL PO SCH (10:45)
--- NOTE | 2019-03-23 12:31 | PN ---
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 Findings were positive for NSTEMI MRI and acute stroke. A ct scan of the lungs showed cavity lesion in the left lung bone scan suggested metastatic bone lesions. Mammography identified a right breast mass highly suspicious for cancer. Patient is currently taking Plavix and ASA after the NSTEMI and acute strokes. - Current Medication List Current Medications: Active Medications Aspirin (Asa -) 325 mg PO DAILY [facility] Last Admin: 03/23/19 10:40 Dose: 325 mg Atorvastatin Calcium (Lipitor -) 80 mg PO HS [facility] Last Admin: 03/22/19 21:38 Dose: 80 mg Heparin Sodium (Porcine) (Heparin -) 5,000 unit SQ BID [facility] Last Admin: 03/23/19 10:40 Dose: 5,000 unit Pantoprazole Sodium (Protonix -) 40 mg PO DAILY [facility] Last Admin: 03/23/19 10:40 Dose: 40 mg Polyethylene Glycol (Miralax (For Daily Use) -) 17 gm PO DAILY [facility] Last Admin: 03/23/19 10:45 Dose: Not Given - Objective Vital Signs: Vital Signs Temperature 98 F 03/23/19 09:00 Pulse Rate 100 H 03/23/19 09:00 Respiratory Rate 18 03/23/19 09:00 Blood Pressure 131/68 03/23/19 09:00 O2 Sat by Pulse Oximetry (%) 95 03/22/19 21:00 Constitutional: Yes: No Distress, Calm HENT: Yes: Atraumatic, Normocephalic Neck: Yes: Supple, Trachea Midline Cardiovascular: Yes: Regular Rate and Rhythm, S1, S2 Respiratory: Yes: Regular, CTA Bilaterally Gastrointestinal: Yes: Normal Bowel Sounds, Soft, Abdomen, Obese Extremities: No: Calf Tenderness Edema: No Peripheral Pulses WNL: Yes Integumentary: Yes: WNL Labs: CBC, BMP 03/22/19 07:00 03/22/19 07:00 Problem List - Problems (1) Breast mass, right Assessment/Plan: right breast mass and bone scan positive for bone mets breast biopsy on Thursday03/28/19 awaiting for MRI of the spine d/c plamnnning [facility] or home follow up with Dr. Bryson Code(s): N63.10 - UNSPECIFIED LUMP IN THE RIGHT BREAST, UNSPECIFIED QUADRANT (2) Cerebrovascular accident (CVA) Assessment/Plan: CVA as presenting symptom on admission Today the patient has difficulty following commands but there are no gross neuro deficits Plavix placed on hold today in view of breast biopsy while continuing ASA. Code(s): I63.9 - CEREBRAL INFARCTION, UNSPECIFIED (3) Pulmonary cavitary lesion Assessment/Plan: monitor WBC other etiologies to be excluded will check blood cultures X2 if temperature more then 101 bronchoscopy not necessary since the site of origin seems to be the breast Code(s): J98.4 - OTHER DISORDERS OF LUNG (4) Thyroid nodule Assessment/Plan: thyroid status functionally ok nodularity to be investigated since "study can not be performed while inpatient?" as per Radiology Code(s): E04.1 - NONTOXIC SINGLE THYROID NODULE (5) NSTEMI (non-ST elevated myocardial infarction) Assessment/Plan: demand ischemia in the context of infection, poor oral intake, and dehydration FRANKIE pending and monty be performed post biopsy Code(s): I21.4 - NON-ST ELEVATION (NSTEMI) MYOCARDIAL INFARCTION
--- NOTE | 2019-03-23 19:19 | PN ---
Progress Note (short form) - Note Progress Note: Patient seen and examined Remains somewhat confused about many of ongoing details of work up Sister at bedside Underwent left femur x-ray- negative. Await MRI If patient is to be discharged need to organize biopsy prior to discharge, Last Vital Signs Temp Pulse Resp BP Pulse Ox 98.0 F 96 H 20 124/77 95 03/23/19 17:00 03/23/19 17:00 03/23/19 17:00 03/23/19 17:00 03/23/19 09:00 HEENT: VIKRAM, EOM Intact Cor: RSR, No murmurs, No gallops Lungs: Clear to P&A Abd: Soft, Normal bowel sounds, No organomegaly Ext:No significant edema Skin: No rashes, Integument intact CBC, BMP 03/22/19 07:00 03/22/19 07:00 Current Medications Generic Name Dose Route Start Last Admin Trade Name Freq PRN Reason Stop Dose Admin Aspirin 325 mg 03/22/19 10:00 03/23/19 10:40 Asa - PO 325 mg DAILY [facility] Administration Atorvastatin Calcium 80 mg 03/21/19 22:00 03/22/19 21:38 Lipitor - PO 80 mg HS [facility] Administration Heparin Sodium (Porcine) 5,000 unit 03/21/19 22:00 03/23/19 10:40 Heparin - SQ 5,000 unit BID [facility] Administration Pantoprazole Sodium 40 mg 03/22/19 10:00 03/23/19 10:40 Protonix - PO 40 mg DAILY [facility] Administration Polyethylene Glycol 17 gm 03/22/19 10:00 03/23/19 10:45 Miralax (For Daily Use) - PO Not Given DAILY [facility] Impression: Likely metastatic breast ca with bone , spine, minoo mets Hypercoaguable state with [employer] infarcts Await MRI Ck on ? leptomeningeal disease on [employer] MRI
[2019-03-23] MEDS: ATORVASTATIN CA 80 MG TABLET (FP) PO SCH (21:34)
[2019-03-24] MEDS ORDERED: PT OWN MED DRAWER 7, Y5N ONE (08:37)
[2019-03-24] MEDS: PANTOPRAZOLE 40 MG TABLET (FP) PO SCH (09:56)
[2019-03-24] MEDS: HEPARIN NA (PORCINE) 5,000 UNITS/ML 1ML VIAL SQ SCH ×2 (09:56→22:09)
[2019-03-24] MEDS: ASPIRIN 325 MG TABLET PO SCH (09:56)
[2019-03-24] MEDS: POLYETHYLENE GLYCOL 3350 119 GM BTL PO SCH (09:57)
--- NOTE | 2019-03-24 10:25 | PN ---
Progress Note (short form) - Note Progress Note: 74yo female with hx of arrhythmia presents with AMS x 4 days. Her sister reports first noticing a change when talking to her on the phone 4 days ago. She said she was "acting weird." She was not having aphasia. The sister said she later had difficulty making coffee that she normally makes every morning. Per ED note, she had a decrease in appetite as well. She reports having bilateral upper arm pain intermittently and generalized weakness. She denies fever, chills, chest pain, headache, and vomiting. She reports seeing a doctor in [facility] for an irregular heart beat but is not currently being treated. She is not anti-coagulated. FU today: awake and conversive , continues to be confused , sister bedside MRI C /T and LS spine shows extensive bony mets CT noted -- suspicious for bony mets , LL lung mass CTA noted --no evidence of vascular anomalies, +sclerotic changes on thoracic VB noted BP stable communicating well, STUDIES: CTA : Impression. Normal contour of the intracranial arterial vessels. Hypodense nodules are noted in the right lobe the thyroid gland. Enlarged right thyroid gland. Heterogeneous attenuation of the left lobe the thyroid with hypodense nodules. Thyroid ultrasound recommended. Sclerotic, blastic changes are noted in T1, T2, T4, T5 vertebral bodies. Left axillary lymph nodes are noted. MRI : Impression. Subacute enhancing infarct superior aspect of the right cerebellum. Acute cortical infarcts are observed in the right temporal temporal lobe, occipital lobe, to a lesser degree, left parietal lobe, left posterior temporal lobe, occipital lobe with restrictive changes on diffusion weighted weighted images, corresponding low signal intensity on the ADC, increased signal intensity of the strokes on the T2, FLAIR WI - different vascular territories. Clinically correlate for vasculitis. MRA Impression. There is no evidence of aneurysm, vascular malformation or flow limiting stenosis. Impression. Patent common, internal, external carotid arteries, vertebral arteries, forming patent basilar artery.. Normal bifurcation of the common carotid arteries no stenotic lesions are seen. ECHO noted-WNL , has been in sinus - Smoking History Smoking history: Unknown if ever smoked Home Medications - Allergies Allergies/Adverse Reactions: Allergies Allergy/AdvReac Type Severity Reaction Status Date / Time Penicillins Allergy Verified 03/17/19 02:45 - Home Medications Home Medications: Ambulatory Orders Aspirin [ASA -] 81 mg PO DAILY 03/17/19 Physical Exam-Neuro Vital Signs: Vital Signs Temperature 98.6 F 03/24/19 17:00 Pulse Rate 97 H 03/24/19 17:00 Respiratory Rate 20 03/24/19 17:00 Blood Pressure 119/88 03/24/19 17:00 O2 Sat by Pulse Oximetry (%) 98 03/24/19 09:00 - Neuro Exam Level Of Consciousness: Yes: Alert (awake, alert, Left sided field cut, left sided neglect, mild left UE drift , ) NIH Stroke Scale - Last Known Well Date/Time & Onset Date Last Known Well: 03/13/19 - Initial Evaluation Level of consciousness: Alert Ask patient the month and their age: Answers both correctly Ask patient to open & close eyes; make fist and let go: Obeys both correctly Best gaze (horizontal eye movement): Normal Visual field testing: Complete hemianopia Facial paresis (Show teeth/raise eyebrows/close eyes tight): Normal symmetrical movement Motor Function: Left Arm: Drift Motor Function: Right Arm: Normal (extends arm 90 (or 45) degrees for 10 seconds without drift Motor Function: Left Leg: Normal (extends leg 30 degrees for 5 seconds without drift) Motor Function: Right Leg: Normal (extends leg 30 degrees for 5 seconds without drift) Limb Ataxia: No ataxia Sensory(Use pinprick test arms,legs,trunk,face/side to side): Mild to moderate decrease in sensation Best language (Describe picture, name items, read sentences): No Aphasia Dysarthria (read several words): Normal articulation Extinction and Inattention: Inattention or extinction bilaterally to one of the sensory modalities - Total Score NIH Stroke Scale Score: 5 Imaging - Results Cat Scan: Image Reviewed MRI: Report Reviewed, Image Reviewed Problem List - Problems (1) Cerebrovascular accident (CVA) Code(s): I63.9 - CEREBRAL INFARCTION, UNSPECIFIED (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 Her sister reports first noticing a change when talking to her on the phone 4 days ago. She said she was "acting weird." She was not having aphasia. The sister said she later had difficulty making coffee that she normally makes every morning. Per ED note, she had a decrease in appetite as well. She reports having bilateral upper arm pain intermittently and generalized weakness. She denies fever, chills, chest pain, headache, and vomiting. She reports seeing a doctor in [facility] for an irregular heart beat but is not currently being treated. She is not anti-coagulated. MRI : Impression. Subacute enhancing infarct superior aspect of the right cerebellum. Acute cortical infarcts are observed in the right temporal temporal lobe, occipital lobe, to a lesser degree, left parietal lobe, left posterior temporal lobe, occipital lobe with restrictive changes on diffusion weighted weighted images, corresponding low signal intensity on the ADC, increased signal intensity of the strokes on the T2, FLAIR WI - different vascular territories. Clinically correlate for vasculitis. MRA Impression. There is no evidence of aneurysm, vascular malformation or flow limiting stenosis. Impression. Patent common, internal, external carotid arteries, vertebral arteries, forming patent basilar artery.. Normal bifurcation of the common carotid arteries no stenotic lesions are seen. AP : subacute encephalopathy found to have BL property caretaker infarcts, on exam left sided neglect /field cut and drift ; suspect underlying relative hypercoag state given new findings of possible mets , primary unknown differential includes cardioembolic disease vs vascultis (less likely) vs +++ hypercoagable state MRA/CTA does not show sig changes suggestive of vasculitis, though does suggest evidence of leptomeningeal disease R cortex mammo + r breast mass , spoine MRI extensive bony mets can consider adding DECADRON for leptomeningeal disease though ideally want tissue Biopsy first ASA/statin--hold plavix so biopsy can be initiated - DR SHORT Problem List - Problems (1) Cerebrovascular accident (CVA) Code(s): I63.9 - CEREBRAL INFARCTION, UNSPECIFIED (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
--- NOTE | 2019-03-24 16:47 | PN ---
Progress Note (short form) - Note Progress Note: oob in chair Vital Signs Period Temp Pulse Resp BP Sys/Gay Pulse Ox Last 24 Hr 97.8 F-98.9 F 93-106 18-20 122-129/67-82 98-98 cor-rrr lungs clear MRI C/T/L spine with bony mets CBC, BMP 03/22/19 07:00 03/22/19 07:00 quantiferon NEGATIVE HIV negative a/p probable CVAs due to hyprcoaguable state from probable maligancy suspect will need biopsy suspect false positive ppd from prior BCG as child- quantiferon gold is negative coccidiodomycosis serology pending most likely malignancy as unifying diagnosis but would pursue bronchoscopy to r/ o infectious etiology as well Problem List - Problems (1) Cerebrovascular accident (CVA) Code(s): I63.9 - CEREBRAL INFARCTION, UNSPECIFIED (2) Pulmonary cavitary lesion Code(s): J98.4 - OTHER DISORDERS OF LUNG
[2019-03-24 17:09] LABS: HEP B CORE AB, TOT Positive (Negative)
--- NOTE | 2019-03-24 20:11 | PN ---
Progress Note (short form) - Note Progress Note: Patient seen and examined Left femur x-ray negative Spine MRI - extensive disease, but no epidural disease Breast biopsy scheduled for 8 AM Thursday . Off plavix , NEED TO CHECK WITH IR IF ASA NEED BE HELD AND ALTERNATIVE A/C TO BE GIVEN UNTIL BIOPSY.
--- NOTE | 2019-03-24 21:10 | PN ---
Progress Note, Physician Chief Complaint: Patient admitted initially with acute multiple strokes was found to have right breast mass, and bony lesions suggestive of metastatic disease. MRI of the C,T, L spine was done today and it showed metastatic disease bot no spinal cord or epidural involvement. Mentation is fluctuating. 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 Findings were positive for NSTEMI MRI and acute stroke. A ct scan of the lungs showed cavity lesion in the left lung bone scan suggested metastatic bone lesions. Mammography identified a right breast mass highly suspicious for cancer. Patient is currently taking ASA and Plavix was placed on hold for breast biopsy after the NSTEMI and acute strokes. I discussed with IR , dr. Mueller and there is no need to stop Aspirin 325 mg daily. - Current Medication List Current Medications: Active Medications Aspirin (Asa -) 325 mg PO DAILY [facility] Last Admin: 03/24/19 09:56 Dose: 325 mg Atorvastatin Calcium (Lipitor -) 80 mg PO HS [facility] Last Admin: 03/23/19 21:34 Dose: 80 mg Heparin Sodium (Porcine) (Heparin -) 5,000 unit SQ BID [facility] Last Admin: 03/24/19 09:56 Dose: 5,000 unit Pantoprazole Sodium (Protonix -) 40 mg PO DAILY [facility] Last Admin: 03/24/19 09:56 Dose: 40 mg Polyethylene Glycol (Miralax (For Daily Use) -) 17 gm PO DAILY [facility] Last Admin: 03/24/19 09:57 Dose: Not Given - Objective Vital Signs: Vital Signs Temperature 98.6 F 03/24/19 17:00 Pulse Rate 97 H 03/24/19 17:00 Respiratory Rate 20 03/24/19 17:00 Blood Pressure 119/88 03/24/19 17:00 O2 Sat by Pulse Oximetry (%) 98 03/24/19 09:00 Constitutional: Yes: No Distress, Calm Eyes: Yes: Conjunctiva Clear, EOM Intact HENT: Yes: Atraumatic, Normocephalic Neck: Yes: Supple, Trachea Midline Cardiovascular: Yes: Regular Rate and Rhythm, S1, S2 Respiratory: Yes: Regular, CTA Bilaterally Gastrointestinal: Yes: Normal Bowel Sounds, Soft, Abdomen, Obese. No: Hepatomegaly, Splenomegaly Musculoskeletal: Yes: WNL Neurological: Yes: Alert, Oriented, Other (difficulty with fine movement left hand) Psychiatric: Yes: Alert, Other (poor short term memory) Labs: CBC, BMP 03/22/19 07:00 03/22/19 07:00 Problem List - Problems (1) Breast mass, right Assessment/Plan: right breast mass and bone scan positive for bone mets breast biopsy on Thursday03/28/19, OK to use ASA 325 mg as per my conversation with Dr. Mueller. awaiting for MRI of the spine d/c planning in [facility] rehab or home follow up with Dr. Bryson Code(s): N63.10 - UNSPECIFIED LUMP IN THE RIGHT BREAST, UNSPECIFIED QUADRANT (2) Cerebrovascular accident (CVA) Assessment/Plan: CVA as presenting symptom on admission Today the patient has difficulty following commands but there are no gross neuro deficits Plavix placed on hold today in view of breast biopsy while continuing ASA. Code(s): I63.9 - CEREBRAL INFARCTION, UNSPECIFIED (3) Pulmonary cavitary lesion Assessment/Plan: monitor WBC other etiologies to be excluded will check blood cultures X2 if temperature more then 101 bronchoscopy not necessary since the site of origin seems to be the breast Code(s): J98.4 - OTHER DISORDERS OF LUNG (4) Thyroid nodule Assessment/Plan: thyroid status functionally ok nodularity to be investigated as out patient Code(s): E04.1 - NONTOXIC SINGLE THYROID NODULE (5) NSTEMI (non-ST elevated myocardial infarction) Assessment/Plan: demand ischemia in the context of infection, poor oral intake, and dehydration FRANKIE pending and monty be performed post biopsy Code(s): I21.4 - NON-ST ELEVATION (NSTEMI) MYOCARDIAL INFARCTION
[2019-03-24] MEDS: ATORVASTATIN CA 80 MG TABLET (FP) PO SCH (22:09)
[2019-03-25] MEDS: PANTOPRAZOLE 40 MG TABLET (FP) PO SCH (09:47)
[2019-03-25] MEDS: POLYETHYLENE GLYCOL 3350 119 GM BTL PO SCH (09:48)
--- NOTE | 2019-03-25 10:30 | PN ---
Progress Note (short form) - Note Progress Note: Patient seen and examined Spoke with --to biopsy left axilla and right breast on Thursday ; wants ASA 325 mg discontinued Spoke with Dr. Black- will need to hold ASA and will give lovenox After biopsy can consider FRANKIE as well as bronchoscopy while on lovenox Last Vital Signs Temp Pulse Resp BP Pulse Ox 98.4 F 94 H 20 133/84 97 03/25/19 05:00 03/25/19 05:00 03/25/19 05:00 03/25/19 05:00 03/24/19 21:12 HEENT: VIKRAM, EOM Intact Cor: RSR, No murmurs, No gallops Lungs: Clear to P&A Abd: Soft, Normal bowel sounds, No organomegaly Ext:No significant edema Skin: No rashes, Integument intact CBC, BMP 03/22/19 07:00 03/22/19 07:00 Current Medications Generic Name Dose Route Start Last Admin Trade Name Vladimirq PRN Reason Stop Dose Admin Aspirin 325 mg 03/22/19 10:00 03/24/19 09:56 Asa - PO 325 mg DAILY [facility] Administration Atorvastatin Calcium 80 mg 03/21/19 22:00 03/24/19 22:09 Lipitor - PO 80 mg HS [facility] Administration Heparin Sodium (Porcine) 5,000 unit 03/21/19 22:00 03/24/19 22:09 Heparin - SQ 5,000 unit BID [facility] Administration Pantoprazole Sodium 40 mg 03/22/19 10:00 03/25/19 09:47 Protonix - PO 40 mg DAILY [facility] Administration Polyethylene Glycol 17 gm 03/22/19 10:00 03/25/19 09:48 Miralax (For Daily Use) - PO Not Given DAILY [facility] Impression: Likely metastatic breast ca with mets to spine , nodes For biopsy Begin lovenox D/c ASA Consider FRANKIE and bronchoscopy on lovenox post biopsy.
[2019-03-25] MEDS: ASPIRIN 325 MG TABLET PO SCH (10:42)
[2019-03-25] MEDS: HEPARIN NA (PORCINE) 5,000 UNITS/ML 1ML VIAL SQ SCH (10:42)
--- NOTE | 2019-03-25 11:07 | PN ---
Progress Note, Physician History of Present Illness: PULMONARY ALERT,NO DISTRESS,-SOB,-CP,-COUGH - Current Medication List Current Medications: Active Medications Atorvastatin Calcium (Lipitor -) 80 mg PO HS [facility] Last Admin: 03/24/19 22:09 Dose: 80 mg Enoxaparin Sodium (Lovenox -) 60 mg SQ Q12H [facility] Stop: 03/27/19 22:00 Pantoprazole Sodium (Protonix -) 40 mg PO DAILY [facility] Last Admin: 03/25/19 09:47 Dose: 40 mg Polyethylene Glycol (Miralax (For Daily Use) -) 17 gm PO DAILY [facility] Last Admin: 03/25/19 09:48 Dose: Not Given - Objective Vital Signs: Vital Signs Temperature 98.4 F 03/25/19 05:00 Pulse Rate 94 H 03/25/19 05:00 Respiratory Rate 20 03/25/19 05:00 Blood Pressure 133/84 03/25/19 05:00 O2 Sat by Pulse Oximetry (%) 97 03/24/19 21:12 Constitutional: Yes: Well Nourished, Calm Eyes: Yes: WNL HENT: Yes: WNL Neck: Yes: WNL Cardiovascular: Yes: Regular Rate and Rhythm, S1, S2 Respiratory: Yes: CTA Bilaterally Gastrointestinal: Yes: Normal Bowel Sounds, Soft Extremities: Yes: WNL Edema: No Labs: CBC, BMP Problem List - Problems (1) Breast mass, right Code(s): N63.10 - UNSPECIFIED LUMP IN THE RIGHT BREAST, UNSPECIFIED QUADRANT (2) Cerebrovascular accident (CVA) Code(s): I63.9 - CEREBRAL INFARCTION, UNSPECIFIED (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 Enlarged lymph nodes in the left axilla. 2 hypodense areas in the thyroid gland. Cavitary mass LLL likely malignant - Breast and Axillary node bx on Thursday - ASA & Plavix on hold - Statin - FRANKIE on Thursday - VTE prophylaxis - Flex bronchoscopy next week DR SEO
[2019-03-25] MEDS: ENOXAPARIN NA (PORCINE) 60 MG/0.6 ML DISP.SYRIN SQ SCH ×2 (13:03→22:56)
--- NOTE | 2019-03-25 17:10 | PN.GI ---
GI Progress Note Subjective: GI NOte: I explained to Ally and her family that her virus is dormant and not replicating but that she does not have immunity to HBV . I explained that she will need suppressive therapy if chemotherapy is undertaken - Objective Vital Signs: Vital Signs Temperature 98.8 F 03/25/19 14:00 Pulse Rate 109 H 03/25/19 14:00 Respiratory Rate 20 03/25/19 14:00 Blood Pressure 120/82 03/25/19 14:00 O2 Sat by Pulse Oximetry (%) 97 03/24/19 21:12 Laboratory Tests 03/21/19 03/22/19 06:00 06:30 Hep A IgM Ab Confirm Negative Hepatitis A Ab Total Positive H HBV Chronic w/Rflx to Conf Pending Hep Bs Antigen Negative Hep Bs Antibody Non reactive Hep B Core Total Ab Positive H Hep B Core IgM Ab Negative Hep B DNA (Units/mL) Hbv dna not detected Hepatitis Be Antibody Positive H Hepatitis Be Antigen Negative Hep C Ab Diagnostic <0.1 TB Test (QFT) Negative Constitutional: Calm ...Auscultate: Yes: Normoactive Bowel Sounds ...Palpate: Yes: Soft, Other (nontender) Labs: CBC, BMP 03/22/19 07:00 03/22/19 07:00 Assessment/Plan Assessment: - High elevation of alkaline phosphatase relative to the GGTP elevation is due to the bone metastases - I explained to Ally and her family that her virus is dormant and not replicating but that she does not have immunity to HBV . Plan: -- I explained that she will need suppressive therapy if chemotherapy is undertaken Problem List - Problems (1) Alkaline phosphatase elevation Code(s): R74.8 - ABNORMAL LEVELS OF OTHER SERUM ENZYMES (2) Hepatitis B virus infection Code(s): B19.10 - UNSPECIFIED VIRAL HEPATITIS B WITHOUT HEPATIC COMA Qualifiers: Viral hepatitis chronicity: carrier Qualified Code(s): B18.1 - Chronic viral hepatitis B without delta-agent (3) Pulmonary cavitary lesion Code(s): J98.4 - OTHER DISORDERS OF LUNG (4) Thyroid nodule Code(s): E04.1 - NONTOXIC SINGLE THYROID NODULE (5) Family history of colon cancer Code(s): Z80.0 - FAMILY HISTORY OF MALIGNANT NEOPLASM OF DIGESTIVE ORGANS (6) Weight loss Code(s): R63.4 - ABNORMAL WEIGHT LOSS
--- NOTE | 2019-03-25 21:55 | PN ---
Progress Note, Physician Chief Complaint: Patient admitted initially with acute multiple strokes was found to have right breast mass, and bony lesions suggestive of metastatic disease. MRI of the C,T, L spine showed metastatic disease and no spinal cord or epidural involvement. Mentation is better today. 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 Findings were positive for NSTEMI and acute stroke. A ct scan of the lungs showed cavity lesion in the left lung, and bone scan suggested metastatic bone lesions. Mammography identified a right breast mass highly suspicious for cancer. ASA and Plavix were placed on hold for breast biopsy on Thursday. Lovenox was started - Current Medication List Current Medications: Active Medications Atorvastatin Calcium (Lipitor -) 80 mg PO HS [facility] Last Admin: 03/24/19 22:09 Dose: 80 mg Enoxaparin Sodium (Lovenox -) 60 mg SQ Q12H [facility] Stop: 03/27/19 22:00 Last Admin: 03/25/19 13:03 Dose: 60 mg Pantoprazole Sodium (Protonix -) 40 mg PO DAILY [facility] Last Admin: 03/25/19 09:47 Dose: 40 mg Polyethylene Glycol (Miralax (For Daily Use) -) 17 gm PO DAILY [facility] Last Admin: 03/25/19 09:48 Dose: Not Given - Objective Vital Signs: Vital Signs Temperature 98.3 F 03/25/19 18:00 Pulse Rate 99 H 03/25/19 18:00 Respiratory Rate 20 03/25/19 18:00 Blood Pressure 151/95 03/25/19 18:00 O2 Sat by Pulse Oximetry (%) 97 03/24/19 21:12 Constitutional: Yes: No Distress, Calm Eyes: Yes: Conjunctiva Clear, EOM Intact HENT: Yes: Atraumatic, Normocephalic Neck: Yes: Supple, Trachea Midline Cardiovascular: Yes: Regular Rate and Rhythm, S1, S2 Respiratory: Yes: Regular, CTA Bilaterally Gastrointestinal: Yes: Normal Bowel Sounds, Soft, Abdomen, Obese. No: Hepatomegaly, Splenomegaly Extremities: No: Calf Tenderness Edema: No Peripheral Pulses WNL: Yes Neurological: Yes: Alert Psychiatric: Yes: Alert, Oriented Labs: CBC, BMP 03/22/19 07:00 03/22/19 07:00 Problem List - Problems (1) Breast mass, right Assessment/Plan: right breast mass and bone scan positive for bone mets breast biopsy on Thursday03/28/19, ASA was placed on hold and Lovenox was started awaiting for MRI of the spine Code(s): N63.10 - UNSPECIFIED LUMP IN THE RIGHT BREAST, UNSPECIFIED QUADRANT (2) Cerebrovascular accident (CVA) Assessment/Plan: CVA as presenting symptom on admission Plavix and Aspirine were placed on hold Code(s): I63.9 - CEREBRAL INFARCTION, UNSPECIFIED (3) Pulmonary cavitary lesion Assessment/Plan: monitor WBC other etiologies to be excluded will check blood cultures X2 if temperature more then 101 bronchoschopy being considered Code(s): J98.4 - OTHER DISORDERS OF LUNG (4) Thyroid nodule Assessment/Plan: thyroid status functionally ok nodularity to be investigated as out patient Code(s): E04.1 - NONTOXIC SINGLE THYROID NODULE (5) NSTEMI (non-ST elevated myocardial infarction) Assessment/Plan: demand ischemia in the context of infection, poor oral intake, and dehydration FRANKIE pending and will be performed post biopsy Code(s): I21.4 - NON-ST ELEVATION (NSTEMI) MYOCARDIAL INFARCTION (6) Hepatitis B virus infection Assessment/Plan: career Code(s): B19.10 - UNSPECIFIED VIRAL HEPATITIS B WITHOUT HEPATIC COMA Qualifiers: Viral hepatitis chronicity: carrier Qualified Code(s): B18.1 - Chronic viral hepatitis B without delta-agent
[2019-03-25] MEDS: ATORVASTATIN CA 80 MG TABLET (FP) PO SCH (22:55)
[2019-03-26 07:07] LABS: BASO % 0.8 % (0-2.0); EOS % 3.4 % (0-4.5); HEMATOCRIT 35.9 % (32.4-45.2); HEMOGLOBIN 12.1 GM/dL (10.7-15.3); LYMPH % 21.2 % (8-40); MCH 30.3 pg (25.7-33.7); MCHC 33.7 g/dl (32.0-36.0); MEAN CELL VOLUME 89.9 fl (80-96); MEAN PLT VOLUME 7.3 fl (7.5-11.1); NEUT % 64.6 % (42.8-82.8); RBC 3.99 M/mm3 (3.60-5.2); RDW 13.2 % (11.6-15.6); WHITE BLOOD COUNT 9.7 K/mm3 (4.0-10.0)
[2019-03-26 07:47] LABS: ALBUMIN 2.9 g/dl (3.4-5.0); BILIRUBIN,TOTAL 0.4 mg/dL (0.2-1); BLOOD UREA NITROGEN 11.6 mg/dL (7-18); CALCIUM 8.9 mg/dL (8.5-10.1); CREATININE 0.7 mg/dL (0.55-1.3); POTASSIUM 4.1 mmol/L (3.5-5.1); TOT PROT 6.6 g/dl (6.4-8.2)
[2019-03-26 07:56] LABS: PLATELET COUNT 265 K/MM3 (134-434)
[2019-03-26] MEDS: POLYETHYLENE GLYCOL 3350 119 GM BTL PO SCH (10:28)
[2019-03-26] MEDS: PANTOPRAZOLE 40 MG TABLET (FP) PO SCH (10:29)
[2019-03-26] MEDS: ENOXAPARIN NA (PORCINE) 60 MG/0.6 ML DISP.SYRIN SQ SCH ×2 (10:29→22:00)
--- NOTE | 2019-03-26 14:54 | PN ---
Progress Note (short form) - Note Progress Note: OOB to chair. Breathing feels fine. Minimal dry cough. Intake & Output 03/23/19 03/24/19 03/25/19 03/26/19 23:59 23:59 23:59 23:59 Intake Total 980 1550 350 290 Output Total 2 Balance 978 1550 350 290 Last Vital Signs Temp Pulse Resp BP Pulse Ox 98.4 F 109 H 18 128/81 97 03/26/19 06:00 03/26/19 08:00 03/26/19 08:00 03/26/19 08:00 03/26/19 07:34 Active Medications Atorvastatin Calcium (Lipitor -) 80 mg PO HS [facility] Last Admin: 03/25/19 22:55 Dose: 80 mg Enoxaparin Sodium (Lovenox -) 60 mg SQ Q12H [facility] Stop: 03/27/19 22:00 Last Admin: 03/26/19 10:29 Dose: 60 mg Pantoprazole Sodium (Protonix -) 40 mg PO DAILY [facility] Last Admin: 03/26/19 10:29 Dose: 40 mg Polyethylene Glycol (Miralax (For Daily Use) -) 17 gm PO DAILY [facility] Last Admin: 03/26/19 10:28 Dose: 17 grams Constitutional: Yes: NAD Eyes: Yes: WNL HENT: Yes: WNL Neck: Yes: WNL Cardiovascular: Yes: Regular Rate and Rhythm, S1, S2 Respiratory: Yes: CTA Bilaterally Gastrointestinal: Yes: Normal Bowel Sounds, Soft Extremities: Yes: WNL Edema: No Labs: Laboratory Results - last 24 hr 03/26/19 03/26/19 06:17 06:17 WBC 9.7 RBC 3.99 Hgb 12.1 Hct 35.9 MCV 89.9 MCH 30.3 MCHC 33.7 RDW 13.2 Plt Count 265 D MPV 7.3 L Absolute Neuts (auto) 6.3 Neutrophils % 64.6 Lymphocytes % 21.2 D Monocytes % 10.0 Eosinophils % 3.4 Basophils % 0.8 Nucleated RBC % 0 Sodium 141 Potassium 4.1 Chloride 106 Carbon Dioxide 30 Anion Gap 5 L BUN 11.6 Creatinine 0.7 Est GFR (CKD-EPI)AfAm 100.32 Est GFR (CKD-EPI)NonAf 86.56 Random Glucose 91 Calcium 8.9 Total Bilirubin 0.4 AST 96 H ALT 73 H Alkaline Phosphatase 381 H Total Protein 6.6 Albumin 2.9 L Problem List - Problems (1) Breast mass, right Code(s): N63.10 - UNSPECIFIED LUMP IN THE RIGHT BREAST, UNSPECIFIED QUADRANT (2) Cerebrovascular accident (CVA) Code(s): I63.9 - CEREBRAL INFARCTION, UNSPECIFIED (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 Enlarged lymph nodes in the left axilla. 2 hypodense areas in the thyroid gland. Left lung cavitary lesion: Infectious versus malignancy - Breast and Axillary node bx on Thursday - ASA & Plavix on hold - Statin - FRANKIE on Thursday - VTE prophylaxis - Available for Flex bronchoscopy Dr Sainz
--- NOTE | 2019-03-26 18:57 | PN ---
Progress Note (short form) - Note Progress Note: Progress Note (short form) - Note Progress Note: Patient seen and examined. Denied any acute complaints. Family member in room will biopsy left axilla and right breast on Thursday ; wants ASA 325 mg discontinued. Lovenox started and will be held the night before the biopsy After biopsy can consider FRANKIE as well as bronchoscopy while on lovenox Last Vital Signs Temp Pulse Resp BP Pulse Ox 97.5 F L 100 H 20 116/67 97 03/26/19 17:00 03/26/19 17:00 03/26/19 17:00 03/26/19 17:00 03/26/19 07:34 HEENT: VIKRAM, EOM Intact Cor: RSR, No murmurs, No gallops Lungs: Clear to P&A Abd: Soft, Normal bowel sounds, No organomegaly Ext:No significant edema Skin: No rashes, Integument intact CBC, BMP 03/26/19 06:17 03/26/19 06:17 Current Medications Generic Name Dose Route Start Last Admin Trade Name Vladimirq PRN Reason Stop Dose Admin Atorvastatin Calcium 80 mg 03/21/19 22:00 03/25/19 22:55 Lipitor - PO 80 mg HS SALO Administration Enoxaparin Sodium 60 mg 03/25/19 10:45 03/26/19 10:29 Lovenox - SQ 03/27/19 22:00 60 mg Q12H SALO Administration Pantoprazole Sodium 40 mg 03/22/19 10:00 03/26/19 10:29 Protonix - PO 40 mg DAILY [facility]O Administration Polyethylene Glycol 17 gm 03/22/19 10:00 03/26/19 10:28 Miralax (For Daily Use) - PO 17 grams DAILY [facility]O Administration Impression: Likely metastatic breast ca with mets to spine , nodes For biopsy Begin lovenox and hold Tuesday 03/27 PM D/c ASA Consider FRANKIE and bronchoscopy on lovenox post biopsy.
--- NOTE | 2019-03-26 19:30 | PN ---
Progress Note, Physician Chief Complaint: Patient admitted initially with acute multiple strokes was found to have right breast mass, and bony lesions suggestive of metastatic disease. MRI of the C,T, L spine showed metastatic disease and no spinal cord or epidural involvement. Mentation is better today. Doing well - Current Medication List Current Medications: Active Medications Atorvastatin Calcium (Lipitor -) 80 mg PO HS [facility] Last Admin: 03/25/19 22:55 Dose: 80 mg Enoxaparin Sodium (Lovenox -) 60 mg SQ Q12H [facility] Stop: 03/27/19 22:00 Last Admin: 03/26/19 10:29 Dose: 60 mg Pantoprazole Sodium (Protonix -) 40 mg PO DAILY [facility] Last Admin: 03/26/19 10:29 Dose: 40 mg Polyethylene Glycol (Miralax (For Daily Use) -) 17 gm PO DAILY [facility] Last Admin: 03/26/19 10:28 Dose: 17 grams - Objective Vital Signs: Vital Signs Temperature 97.5 F L 03/26/19 17:00 Pulse Rate 100 H 03/26/19 17:00 Respiratory Rate 20 03/26/19 17:00 Blood Pressure 116/67 03/26/19 17:00 O2 Sat by Pulse Oximetry (%) 97 03/26/19 07:34 Labs: CBC, BMP 03/26/19 06:17 03/26/19 06:17 Problem List - Problems (1) Breast mass, right Code(s): N63.10 - UNSPECIFIED LUMP IN THE RIGHT BREAST, UNSPECIFIED QUADRANT (2) Cerebrovascular accident (CVA) Code(s): I63.9 - CEREBRAL INFARCTION, UNSPECIFIED (3) Pulmonary cavitary lesion Code(s): J98.4 - OTHER DISORDERS OF LUNG (4) Thyroid nodule Code(s): E04.1 - NONTOXIC SINGLE THYROID NODULE (5) NSTEMI (non-ST elevated myocardial infarction) Code(s): I21.4 - NON-ST ELEVATION (NSTEMI) MYOCARDIAL INFARCTION (6) Hepatitis B virus infection Code(s): B19.10 - UNSPECIFIED VIRAL HEPATITIS B WITHOUT HEPATIC COMA Qualifiers: Viral hepatitis chronicity: carrier Qualified Code(s): B18.1 - Chronic viral hepatitis B without delta-agent
[2019-03-26] MEDS: ATORVASTATIN CA 80 MG TABLET (FP) PO SCH (21:28)
--- NOTE | 2019-03-27 12:01 | PN ---
Progress Note, Physician Chief Complaint: Patient admitted initially with acute multiple strokes was found to have right breast mass, and bony lesions suggestive of metastatic disease. MRI of the C,T, L spine showed metastatic disease and no spinal cord or epidural involvement. Mentation is better today. Doing well, and at baseline, slept, ate well, had a bowel movement. Denies calf pain. 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 Findings were positive for NSTEMI and acute stroke. A ct scan of the lungs showed cavity lesion in the left lung, and bone scan suggested metastatic bone lesions. Mammography identified a right breast mass highly suspicious for cancer. ASA and Plavix were placed on hold for breast biopsy on Thursday, and possible FRANKIE or bronchoscopy on Thursday. Lovenox was started - Current Medication List Current Medications: Active Medications Atorvastatin Calcium (Lipitor -) 80 mg PO HS [facility] Last Admin: 03/26/19 21:28 Dose: 80 mg Enoxaparin Sodium (Lovenox -) 60 mg SQ Q12H [facility] Stop: 03/27/19 22:00 Last Admin: 03/26/19 22:00 Dose: 60 mg Pantoprazole Sodium (Protonix -) 40 mg PO DAILY [facility] Last Admin: 03/26/19 10:29 Dose: 40 mg Polyethylene Glycol (Miralax (For Daily Use) -) 17 gm PO DAILY [facility] Last Admin: 03/26/19 10:28 Dose: 17 grams - Objective Vital Signs: Vital Signs Temperature 97.9 F 03/27/19 05:00 Pulse Rate 92 H 03/27/19 09:00 Respiratory Rate 18 03/27/19 09:00 Blood Pressure 117/72 03/27/19 09:00 O2 Sat by Pulse Oximetry (%) 97 03/27/19 09:00 Constitutional: Yes: No Distress, Calm Eyes: Yes: Conjunctiva Clear, EOM Intact HENT: Yes: Atraumatic, Normocephalic Neck: Yes: Supple, Trachea Midline Cardiovascular: Yes: Regular Rate and Rhythm, S1, S2 Respiratory: Yes: Regular, CTA Bilaterally Gastrointestinal: Yes: Normal Bowel Sounds, Soft. No: Hepatomegaly, Splenomegaly Extremities: No: Calf Tenderness Edema: No Peripheral Pulses WNL: Yes Neurological: Yes: Alert, Oriented, Other (forgetful) Labs: CBC, BMP 03/26/19 06:17 07/20/19 06:17 Problem List - Problems (1) Breast mass, right Assessment/Plan: right breast mass and bone scan positive for bone mets breast biopsy on Thursday03/28/19, ASA, Plavix were placed on hold and Lovenox was started MRI of the spine vertebral mets present Code(s): N63.10 - UNSPECIFIED LUMP IN THE RIGHT BREAST, UNSPECIFIED QUADRANT (2) Cerebrovascular accident (CVA) Assessment/Plan: CVA as presenting symptom on admission Plavix and Aspirin were placed on hold currently on Lovenox Code(s): I63.9 - CEREBRAL INFARCTION, UNSPECIFIED (3) Pulmonary cavitary lesion Assessment/Plan: monitor WBC other etiologies to be excluded will check blood cultures X2 if temperature more then 101 bronchoschopy pending FRANKIE on Thursday or Thursday Code(s): J98.4 - OTHER DISORDERS OF LUNG (4) Thyroid nodule Assessment/Plan: thyroid status functionally ok nodularity to be investigated as out patient Code(s): E04.1 - NONTOXIC SINGLE THYROID NODULE (5) NSTEMI (non-ST elevated myocardial infarction) Assessment/Plan: demand ischemia in the context of infection, poor oral intake, and dehydration FRANKIE pending and will be performed post biopsy Code(s): I21.4 - NON-ST ELEVATION (NSTEMI) MYOCARDIAL INFARCTION (6) Hepatitis B virus infection Assessment/Plan: carrier Code(s): B19.10 - UNSPECIFIED VIRAL HEPATITIS B WITHOUT HEPATIC COMA Qualifiers: Viral hepatitis chronicity: carrier Qualified Code(s): B18.1 - Chronic viral hepatitis B without delta-agent
[2019-03-27] MEDS: POLYETHYLENE GLYCOL 3350 119 GM BTL PO SCH (12:08)
[2019-03-27] MEDS: ENOXAPARIN NA (PORCINE) 60 MG/0.6 ML DISP.SYRIN SQ SCH (12:08)
[2019-03-27] MEDS: PANTOPRAZOLE 40 MG TABLET (FP) PO SCH (12:08)
--- NOTE | 2019-03-27 13:36 | PN ---
Progress Note (short form) - Note Progress Note: OOB to chair. Breathing feels fine. Minimal dry cough. Intake & Output 03/24/19 03/25/19 03/26/19 03/27/19 23:59 23:59 23:59 23:59 Intake Total 1550 350 690 340 Balance 1550 350 690 340 Last Vital Signs Temp Pulse Resp BP Pulse Ox 97.9 F 92 H 18 117/72 97 03/27/19 05:00 03/27/19 09:00 03/27/19 09:00 03/27/19 09:00 03/27/19 09:00 Active Medications Atorvastatin Calcium (Lipitor -) 80 mg PO HS [facility] Last Admin: 03/26/19 21:28 Dose: 80 mg Enoxaparin Sodium (Lovenox -) 60 mg SQ Q12H [facility] Stop: 03/27/19 22:00 Last Admin: 03/27/19 12:08 Dose: 60 mg Pantoprazole Sodium (Protonix -) 40 mg PO DAILY [facility] Last Admin: 03/27/19 12:08 Dose: 40 mg Polyethylene Glycol (Miralax (For Daily Use) -) 17 gm PO DAILY [facility] Last Admin: 03/27/19 12:08 Dose: Not Given Constitutional: Yes: NAD Eyes: Yes: WNL HENT: Yes: WNL Neck: Yes: WNL Cardiovascular: Yes: Regular Rate and Rhythm, S1, S2 Respiratory: Yes: CTA Bilaterally Gastrointestinal: Yes: Normal Bowel Sounds, Soft Extremities: Yes: WNL Edema: No Labs: Problem List - Problems (1) Breast mass, right Code(s): N63.10 - UNSPECIFIED LUMP IN THE RIGHT BREAST, UNSPECIFIED QUADRANT (2) Cerebrovascular accident (CVA) Code(s): I63.9 - CEREBRAL INFARCTION, UNSPECIFIED (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 Enlarged lymph nodes in the left axilla. 2 hypodense areas in the thyroid gland. Left lung cavitary lesion: Infectious versus malignancy - Breast and Axillary node bx on Thursday - ASA & Plavix on hold - Statin - FRANKIE on Thursday - VTE prophylaxis - Available for Flex bronchoscopy and day this week: likely Thursday Dr Sainz
--- NOTE | 2019-03-27 15:04 | PN ---
Progress Note (short form) - Note Progress Note: Progress Note (short form) - Note Progress Note: Patient seen and examined. Denied any acute complaints, having lunch. Several family members in the room. will biopsy left axilla and right breast on Thursday ; wants ASA 325 mg discontinued. Lovenox started and will be held the night before the biopsy After biopsy can consider FRANKIE as well as bronchoscopy while on lovenox Last Vital Signs Temp Pulse Resp BP Pulse Ox 97.5 F L 100 H 20 116/67 97 03/26/19 17:00 03/26/19 17:00 03/26/19 17:00 03/26/19 17:00 03/26/19 07:34 ROS: 14 point elicited in detail and negative. Physical Exam HEENT: VIKRAM, EOM Intact Cor: RSR, No murmurs, No gallops Lungs: Clear to P&A Abd: Soft, Normal bowel sounds, No organomegaly Ext:No significant edema Skin: No rashes, Integument intact CBC, BMP 03/26/19 06:17 03/26/19 06:17 Current Medications Generic Name Dose Route Start Last Admin Trade Name Freq PRN Reason Stop Dose Admin Atorvastatin Calcium 80 mg 03/21/19 22:00 03/26/19 21:28 Lipitor - PO 80 mg HS [facility] Administration Enoxaparin Sodium 60 mg 03/25/19 10:45 03/27/19 12:08 Lovenox - SQ 03/27/19 22:00 60 mg Q12H [facility] Administration Pantoprazole Sodium 40 mg 03/22/19 10:00 03/27/19 12:08 Protonix - PO 40 mg DAILY [facility] Administration Polyethylene Glycol 17 gm 03/22/19 10:00 03/27/19 12:08 Miralax (For Daily Use) - PO Not Given DAILY [facility] Impression: Likely metastatic breast ca with mets to spine , nodes For biopsy Begin lovenox and hold Tuesday 03/27 PM D/c ASA Consider FRANKIE and bronchoscopy on lovenox post biopsy.
[2019-03-27] MEDS: ATORVASTATIN CA 80 MG TABLET (FP) PO SCH (21:43)
[2019-03-28 06:39] LABS: INR 1.16 (0.83-1.09); PROTHROMBIN TIME (PATIENT) 13.7 SEC (9.7-13.0)
--- NOTE | 2019-03-28 10:27 | PN ---
Progress Note, Physician History of Present Illness: pulmonary alert,no distress,-cp,-sob,s/p breast bx - Current Medication List Current Medications: Active Medications Atorvastatin Calcium (Lipitor -) 80 mg PO HS [facility] Last Admin: 03/27/19 21:43 Dose: 80 mg Pantoprazole Sodium (Protonix -) 40 mg PO DAILY [facility] Last Admin: 03/27/19 12:08 Dose: 40 mg Polyethylene Glycol (Miralax (For Daily Use) -) 17 gm PO DAILY [facility] Last Admin: 03/27/19 12:08 Dose: Not Given - Objective Vital Signs: Vital Signs Temperature 98 F 03/28/19 05:50 Pulse Rate 98 H 03/28/19 05:50 Respiratory Rate 20 03/28/19 05:50 Blood Pressure 132/77 03/28/19 05:50 O2 Sat by Pulse Oximetry (%) 97 03/27/19 20:32 Constitutional: Yes: Well Nourished, Calm Eyes: Yes: WNL HENT: Yes: WNL Neck: Yes: WNL Cardiovascular: Yes: Regular Rate and Rhythm, S1, S2 Respiratory: Yes: CTA Bilaterally Gastrointestinal: Yes: Normal Bowel Sounds, Soft Extremities: Yes: WNL Edema: No Labs: CBC, BMP Problem List - Problems (1) Breast mass, right Code(s): N63.10 - UNSPECIFIED LUMP IN THE RIGHT BREAST, UNSPECIFIED QUADRANT (2) Cerebrovascular accident (CVA) Code(s): I63.9 - CEREBRAL INFARCTION, UNSPECIFIED (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 Enlarged lymph nodes in the left axilla. 2 hypodense areas in the thyroid gland. Cavitary mass LLL likely malignant - ASA & Plavix on hold - Statin - FRANKIE on Thursday - VTE prophylaxis - Flex bronchoscopy this week likely Thursday DR SEO
[2019-03-28] MEDS: PANTOPRAZOLE 40 MG TABLET (FP) PO SCH (11:12)
[2019-03-28] MEDS: POLYETHYLENE GLYCOL 3350 119 GM BTL PO SCH (11:13)
--- NOTE | 2019-03-28 14:17 | PN ---
Physical Exam: SUBJECTIVE: Patient seen and examined. Says she's having intermittent blurry vision in her R eye since being admitted. Never experienced it before. s/p R breast, L axilla biopsy this AM. FRANKIE planned for tomorrow. OBJECTIVE: Vital Signs Period Temp Pulse Resp BP Sys/Gay Pulse Ox Last 24 Hr 98 F-98.5 F 98-111 20-20 101-132/63-77 96-97 GENERAL: The patient is awake, alert, and fully oriented, in no acute distress, sitting on the chair comfortable. HEAD: Normal with no signs of trauma. EYES: PERRL, extraocular movements intact. Vision test: blurred vision in R eye. ENT: MMM, +thrush NECK: supple. LUNGS: Breath sounds equal, clear to auscultation bilaterally HEART: Regular rate and rhythm, S1, S2 without murmur, rub or gallop. ABDOMEN: Soft, nontender, nondistended, normoactive bowel sounds, no guarding, no rebound EXTREMITIES: 2+ pulses, warm, well-perfused, no edema. NEUROLOGICAL: Cranial nerves II through XII grossly intact. Breast: Dressing on R breast. clean Laboratory Results - last 24 hr 03/28/19 06:00 PT with INR 13.70 H INR 1.16 H Active Medications Generic Name Dose Route Start Last Admin Trade Name Freq PRN Reason Stop Dose Admin Atorvastatin Calcium 80 mg 03/21/19 22:00 03/27/19 21:43 Lipitor - PO 80 mg HS [facility] Administration Nystatin 500,000 units 03/28/19 18:00 Nystatin Oral Suspension - PO Q6HPO [facility] Pantoprazole Sodium 40 mg 03/22/19 10:00 03/28/19 11:12 Protonix - PO 40 mg DAILY [facility] Administration Polyethylene Glycol 17 gm 03/22/19 10:00 03/28/19 11:13 Miralax (For Daily Use) - PO Not Given DAILY [facility] ASSESSMENT/PLAN: #Likely Metastatic Breast Ca with Mets to spine/nodes #Cavitary Mass in LLL likely malignancy #Acute CVA- likely embolic -s/p R breast, Axilla biopsy -await biopsy results -FRANKIE planned for tomorrow -Flex bronch planned for Thursday. -nystatin swish and swallow for thrush -Consider optho consult for "blurry vision" Visit type - Emergency Visit Emergency Visit: Yes ED Registration Date: 03/17/19 Care time: The patient presented to the Emergency Department on the above date and was hospitalized for further evaluation of their emergent condition. - New Patient This patient is new to me today: Yes Date on this admission: 03/28/19 - Critical Care Critical Care patient: No ATTENDING PHYSICIAN STATEMENT I saw and evaluated the patient. I reviewed the resident's note and discussed the case with the resident. I agree with the resident's findings and plan as documented. SUBJECTIVE: OBJECTIVE: ASSESSMENT AND PLAN:
[2019-03-28] MEDS: NYSTATIN 500,000 UNITS/5 ML SUSPENSION PO SCH ×2 (17:27→23:59)
[2019-03-28 20:06] LABS: IgG Ab 23 kDa Band Present (.); IgG Ab 28 kDa Band Present (.)
--- NOTE | 2019-03-28 20:21 | PN ---
Progress Note (short form) - Note Progress Note: Patient seen and examined Sister at bedside and updated Underwent biopsy of right breast and left axilla For FRANKIE and evaluation of lung
--- NOTE | 2019-03-28 20:22 | PN ---
Teaching Attending Note Name of Resident: Ashish Bishop ATTENDING PHYSICIAN STATEMENT I saw and evaluated the patient. I reviewed the resident's note and discussed the case with the resident. I agree with the resident's findings and plan as documented. SUBJECTIVE: Patient seen , examined and discussed at length with resident. OBJECTIVE: ASSESSMENT AND PLAN:
--- NOTE | 2019-03-28 21:03 | PN ---
Progress Note, Physician Chief Complaint: Patient admitted for acute multiple strokes was found to have right breast mass , and bony lesions suggestive of metastatic disease of the C,T,L spine and no spinal cord or epidural involvement by MRI. Patient is alert and oriented but forgetful. According to parvin sister there was some transient blurred vision earlier during the day. 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 Findings were positive for NSTEMI and acute stroke. A ct scan of the lungs showed cavity lesion in the left lung, and bone scan suggested metastatic bone lesions. Mammography identified a right breast mass highly suspicious for cancer. ASA, Plavix, Lovenox were placed on hold for breast biopsy on Thursday, and FRANKIE on Thursday, bronchoscopy on Thursday. - Current Medication List Current Medications: Active Medications Atorvastatin Calcium (Lipitor -) 80 mg PO HS [facility] Last Admin: 03/27/19 21:43 Dose: 80 mg Nystatin (Nystatin Oral Suspension -) 500,000 units PO Q6HPO [facility] Last Admin: 03/28/19 17:27 Dose: 500,000 units Pantoprazole Sodium (Protonix -) 40 mg PO DAILY [facility] Last Admin: 03/28/19 11:12 Dose: 40 mg Polyethylene Glycol (Miralax (For Daily Use) -) 17 gm PO DAILY [facility] Last Admin: 03/28/19 11:13 Dose: Not Given - Objective Vital Signs: Vital Signs Temperature 98.3 F 03/28/19 20:35 Pulse Rate 103 H 03/28/19 20:35 Respiratory Rate 20 03/28/19 20:35 Blood Pressure 131/77 03/28/19 20:35 O2 Sat by Pulse Oximetry (%) 96 03/28/19 09:00 Constitutional: Yes: No Distress, Calm Eyes: Yes: Conjunctiva Clear, EOM Intact Neck: Yes: Supple, Trachea Midline Cardiovascular: Yes: Regular Rate and Rhythm Respiratory: Yes: Regular, CTA Bilaterally Gastrointestinal: Yes: Normal Bowel Sounds, Soft. No: Hepatomegaly, Splenomegaly Breast(s): Yes: WNL Extremities: No: Calf Tenderness Peripheral Pulses WNL: Yes Neurological: Yes: Alert, Oriented Psychiatric: Yes: Alert, Oriented Labs: CBC, BMP 03/26/19 06:17 03/26/19 06:17 INR, PTT INR 1.16 (0.83-1.09) H 03/28/19 06:00 Problem List - Problems (1) Breast mass, right Assessment/Plan: right breast mass and bone scan positive for bone mets breast biopsy was tolerated well ASA, Plavix. Lovenox were placed on hold MRI of the spine vertebral mets present Code(s): N63.10 - UNSPECIFIED LUMP IN THE RIGHT BREAST, UNSPECIFIED QUADRANT (2) Cerebrovascular accident (CVA) Assessment/Plan: CVA as presenting symptom on admiss Lovenox on hold for FRANKIE in am Code(s): I63.9 - CEREBRAL INFARCTION, UNSPECIFIED (3) Pulmonary cavitary lesion Assessment/Plan: monitor WBC other etiologies to be excluded will check blood cultures X2 if temperature more than 101 bronchoschopy pending FRANKIE on Thursday Code(s): J98.4 - OTHER DISORDERS OF LUNG (4) Thyroid nodule Assessment/Plan: thyroid status functionally ok nodularity to be investigated as out patient Code(s): E04.1 - NONTOXIC SINGLE THYROID NODULE (5) NSTEMI (non-ST elevated myocardial infarction) Assessment/Plan: demand ischemia in the context of infection, poor oral intake, and dehydration FRANKIE pending and will be performed post biopsy Code(s): I21.4 - NON-ST ELEVATION (NSTEMI) MYOCARDIAL INFARCTION (6) Hepatitis B virus infection Assessment/Plan: carrier Code(s): B19.10 - UNSPECIFIED VIRAL HEPATITIS B WITHOUT HEPATIC COMA Qualifiers: Viral hepatitis chronicity: carrier Qualified Code(s): B18.1 - Chronic viral hepatitis B without delta-agent
[2019-03-28] MEDS ORDERED: D5-1/2NS+10 MEQ KCL - 10 MEQ/1,000 ML INFUS.BAG IV SCH (21:15)
[2019-03-28] MEDS: ATORVASTATIN CA 80 MG TABLET (FP) PO SCH (21:45)
[2019-03-29] MEDS: NYSTATIN 500,000 UNITS/5 ML SUSPENSION PO SCH ×3 (05:54→17:06)
[2019-03-29] MEDS ORDERED: LIDOCAINE VISCOUS 2% ORAL/TOP 20 ML UNIT-DOSE CUP ONE (08:58)
[2019-03-29] MEDS ORDERED: LIDOCAINE VISCOUS 2% ORAL/TOP 20 ML UNIT-DOSE CUP MM ONE (09:00)
--- NOTE | 2019-03-29 09:05 | PN ---
Progress Note (short form) - Note Progress Note: Flexible Bronchoscopy scheduled for 1PM tomorrow (Thursday). NPO after midnight order placed. Dr Sainz
--- NOTE | 2019-03-29 09:38 | PN ---
Progress Note (short form) - Note Progress Note: FRANKIE was attempted today. Several attempts were made however the FRANKIE probe was unable to be passed beyond the upper esophagus therefore no images were obtained. Pt tolerated procedure. there were no complications. Keep NPO for 2 hours then resume can resume previous diet.
[2019-03-29] MEDS: PANTOPRAZOLE 40 MG TABLET (FP) PO SCH (10:48)
[2019-03-29] MEDS: POLYETHYLENE GLYCOL 3350 119 GM BTL PO SCH (10:48)
--- NOTE | 2019-03-29 10:53 | PN ---
Progress Note, Physician History of Present Illness: pulmonary alert,no distress,-cp,-sob. pt scheduled for bronchoscopy tomorrow . - Current Medication List Current Medications: Active Medications Atorvastatin Calcium (Lipitor -) 80 mg PO HS [facility] Last Admin: 03/28/19 21:45 Dose: 80 mg Bacitracin (Bacitracin -) 1 applic TP DAILY [facility] Potassium Chloride/Dextrose/Sod Cl (D5-1/2ns+10 Meq Kcl -) 10 meq in 1,000 mls @ 75 mls/hr IV ASDIR [facility] Last Admin: 03/28/19 21:45 Dose: 75 mls/hr Nystatin (Nystatin Oral Suspension -) 500,000 units PO Q6HPO [facility] Last Admin: 03/29/19 05:54 Dose: Not Given Pantoprazole Sodium (Protonix -) 40 mg PO DAILY [facility] Last Admin: 03/28/19 11:12 Dose: 40 mg Polyethylene Glycol (Miralax (For Daily Use) -) 17 gm PO DAILY [facility] Last Admin: 03/28/19 11:13 Dose: Not Given - Objective Vital Signs: Vital Signs Temperature 98.4 F 03/29/19 09:17 Pulse Rate 91 H 03/29/19 09:48 Respiratory Rate 21 H 03/29/19 09:48 Blood Pressure 131/85 03/29/19 09:48 O2 Sat by Pulse Oximetry (%) 98 03/29/19 09:48 Constitutional: Yes: Well Nourished, Calm Eyes: Yes: WNL HENT: Yes: WNL, Other Cardiovascular: Yes: Regular Rate and Rhythm, S1, S2 Respiratory: Yes: CTA Bilaterally Gastrointestinal: Yes: Normal Bowel Sounds, Soft Extremities: Yes: WNL Edema: No Labs: CBC, BMP 03/26/19 06:17 Problem List - Problems (1) Breast mass, right Code(s): N63.10 - UNSPECIFIED LUMP IN THE RIGHT BREAST, UNSPECIFIED QUADRANT (2) Cerebrovascular accident (CVA) Code(s): I63.9 - CEREBRAL INFARCTION, UNSPECIFIED (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 Enlarged lymph nodes in the left axilla. 2 hypodense areas in the thyroid gland. Cavitary mass LLL likely malignant - ASA & Plavix on hold - VTE prophylaxis - Flex bronchoscopy tomorrow DR SEO
[2019-03-29] MEDS: BACITRACIN 15 GM TUBE TOPICAL OINTMENT TP SCH (11:38)
--- NOTE | 2019-03-29 19:17 | PN ---
Progress Note, Physician Chief Complaint: Patient is alert and oriented but forgetful. FRANKIE was attempted today unsuccessfully. Breast biopsy results are pending. Earlier today there was bleeding from the breast biopsy site and the dressing had to be changed. Lovenox is still on hold. Bronchoscopy for BAL of the left lung mass is scheduled for tomorrow. According to the sister the patient developed intermittent paresthesias after the breast and lymph node biopsy. Paresthesias are located in her left 2nd, 3rd and 4th fingers. A Lyme titer was performed showing past exposure to Lyme. Patient states that she was bitten by a tick nymph a few months ago.She did not develop any rash, or joint pain. 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 Findings were positive for NSTEMI and acute bilateral multiple strokes. A ct scan of the lungs showed cavity lesion in the left lung, and bone scan suggested metastatic bone lesions of the C,T,L spine with no spinal cord or epidural involvement by MRI. Mammography identified a right breast mass highly suspicious for cancer. - Current Medication List Current Medications: Active Medications Atorvastatin Calcium (Lipitor -) 80 mg PO HS [facility] Last Admin: 03/28/19 21:45 Dose: 80 mg Bacitracin (Bacitracin -) 1 applic TP DAILY [facility] Last Admin: 03/29/19 11:38 Dose: 1 applic Nystatin (Nystatin Oral Suspension -) 500,000 units PO Q6HPO [facility] Last Admin: 03/29/19 17:06 Dose: Not Given Pantoprazole Sodium (Protonix -) 40 mg PO DAILY [facility] Last Admin: 03/29/19 10:48 Dose: Not Given Polyethylene Glycol (Miralax (For Daily Use) -) 17 gm PO DAILY [facility] Last Admin: 03/29/19 10:48 Dose: Not Given - Objective Vital Signs: Vital Signs Temperature 98.2 F 03/29/19 14:00 Pulse Rate 109 H 03/29/19 14:00 Respiratory Rate 20 03/29/19 14:00 Blood Pressure 122/85 03/29/19 14:00 O2 Sat by Pulse Oximetry (%) 98 03/29/19 09:48 Constitutional: Yes: No Distress, Calm Eyes: Yes: Conjunctiva Clear, EOM Intact HENT: Yes: Atraumatic, Normocephalic Cardiovascular: Yes: Regular Rate and Rhythm, S1, S2 Respiratory: Yes: Regular, CTA Bilaterally Gastrointestinal: Yes: Normal Bowel Sounds, Soft, Abdomen, Obese. No: Hepatomegaly, Splenomegaly Extremities: No: Calf Tenderness Edema: No Peripheral Pulses WNL: Yes Neurological: Yes: Alert, Oriented Psychiatric: Yes: Alert, Oriented Labs: CBC, BMP 03/26/19 06:17 03/26/19 06:17 INR, PTT INR 1.16 (0.83-1.09) H 03/28/19 06:00 Problem List - Problems (1) Breast mass, right Assessment/Plan: right breast mass and bone scan positive for bone mets breast biopsy was tolerated well ASA, Plavix. Lovenox were placed on hold MRI of the spine showing vertebral mets Code(s): N63.10 - UNSPECIFIED LUMP IN THE RIGHT BREAST, UNSPECIFIED QUADRANT (2) Cerebrovascular accident (CVA) Assessment/Plan: CVA as presenting symptom on admission Lovenox on hold for bronchoscopy in am Code(s): I63.9 - CEREBRAL INFARCTION, UNSPECIFIED (3) Pulmonary cavitary lesion Assessment/Plan: monitor WBC other etiologies to be excluded will check blood cultures X2 if temperature more than 101 bronchoschopy in am on Thursday Code(s): J98.4 - OTHER DISORDERS OF LUNG (4) Thyroid nodule Assessment/Plan: thyroid status functionally ok nodularity to be investigated as out patient Code(s): E04.1 - NONTOXIC SINGLE THYROID NODULE (5) NSTEMI (non-ST elevated myocardial infarction) Assessment/Plan: demand ischemia in the context of infection, poor oral intake, and dehydration FRANKIE was unsuccesful Code(s): I21.4 - NON-ST ELEVATION (NSTEMI) MYOCARDIAL INFARCTION (6) Hepatitis B virus infection Assessment/Plan: carrier Code(s): B19.10 - UNSPECIFIED VIRAL HEPATITIS B WITHOUT HEPATIC COMA Qualifiers: Viral hepatitis chronicity: carrier Qualified Code(s): B18.1 - Chronic viral hepatitis B without delta-agent (7) Positive Lyme disease serology Assessment/Plan: past exposure, asymptomatic recall id for consultation on treatment paresthesias in the left 2nd, 3rd and 4th fingers are rather due to cervical radiculitis than Lyme Code(s): R76.8 - OTHER SPECIFIED ABNORMAL IMMUNOLOGICAL FINDINGS IN SERUM (8) Radiculitis Assessment/Plan: left cervical area with paresthesias in parvin left 2nd, 3rd and 4th fingers Code(s): M54.10 - RADICULOPATHY, SITE UNSPECIFIED
--- NOTE | 2019-03-29 19:48 | PN ---
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 Plan: Bronchoscopy to clarify cavitary lung lesion Additional studies on left axillary node Repeat MRI brain ID on Positive lyme.
[2019-03-29] MEDS: ATORVASTATIN CA 80 MG TABLET (FP) PO SCH (22:08)
[2019-03-30] MEDS: NYSTATIN 500,000 UNITS/5 ML SUSPENSION PO SCH ×5 (00:10→22:00)
[2019-03-30] MEDS ORDERED: DEXTROSE 5%-0.45% SALINE 1,000 ML IV SCH ×2 (06:00→12:47)
[2019-03-30] MEDS ORDERED: LIDOCAINE HCL 1%, 10 MG/ML (20ML VIAL) ONE (10:33)
[2019-03-30] MEDS ORDERED: PROPOFOL 20 ML ONE ×2 (11:19)
--- NOTE | 2019-03-30 12:03 | PN ---
Progress Note (short form) - Note Progress Note: Feels well. No CP or SOB. Intake & Output 03/27/19 03/28/19 03/29/19 03/30/19 23:59 23:59 23:59 23:59 Intake Total 988 22 7008 610 Output Total 0 Balance 338 40 3252 610 Last Vital Signs Temp Pulse Resp BP Pulse Ox 98 F 106 H 20 121/86 98 03/30/19 08:52 03/30/19 08:52 03/30/19 08:52 03/30/19 08:52 03/29/19 21:00 Active Medications Atorvastatin Calcium (Lipitor -) 80 mg PO HS [facility] Last Admin: 03/29/19 22:08 Dose: 80 mg Bacitracin (Bacitracin -) 1 applic TP DAILY [facility] Last Admin: 03/29/19 11:38 Dose: 1 applic Dextrose/Sodium Chloride (D5-1/2ns -) 1,000 mls @ 75 mls/hr IV ASDIR [facility] Last Admin: 03/30/19 06:26 Dose: 75 mls/hr Nystatin (Nystatin Oral Suspension -) 500,000 units PO Q6HPO [facility] Last Admin: 03/30/19 06:26 Dose: Not Given Pantoprazole Sodium (Protonix -) 40 mg PO DAILY [facility] Last Admin: 03/29/19 10:48 Dose: Not Given Polyethylene Glycol (Miralax (For Daily Use) -) 17 gm PO DAILY [facility] Last Admin: 03/29/19 10:48 Dose: Not Given Constitutional: Yes: NAD Eyes: Yes: WNL HENT: Yes: WNL Neck: Yes: WNL Cardiovascular: Yes: Regular Rate and Rhythm, S1, S2 Respiratory: Yes: CTA Bilaterally Gastrointestinal: Yes: Normal Bowel Sounds, Soft Extremities: Yes: WNL Edema: No Labs: Problem List - Problems (1) Breast mass, right Code(s): N63.10 - UNSPECIFIED LUMP IN THE RIGHT BREAST, UNSPECIFIED QUADRANT (2) Cerebrovascular accident (CVA) Code(s): I63.9 - CEREBRAL INFARCTION, UNSPECIFIED (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 Enlarged lymph nodes in the left axilla. 2 hypodense areas in the thyroid gland. Left lung cavitary lesion: Infectious versus malignancy - Flex Bronch today - ASA & Plavix on hold - OK to restart Lovenox and anti-platelets in AM Dr Sainz
--- NOTE | 2019-03-30 12:10 | PROC ---
Procedure Note Procedure: Under informed consent a Bilateral Flexible Bronchoscopy was performed. Patient was taken to the OR and endotracheally intubated by anesthesia. The bronchoscope was inserted via the ETT and advanced to the jaky, which appeared sharp. The right mainstem bronchus was cannulated. The airways were subsequently inspected. There were no endobronchial lesions. Only very thin clear secretions were noted. The bronchoscope was withdrawn back to the jaky and the left mainstem bronchus was cannulated. There were no endobronchial lesions noted. There was some fullness of the superior segment of the LLL. BAL, brushings, and biopsies x 3 were taken from this segment and sent for appropriate studies. The patient tolerated the procedure well. She is yo be extubated by anesthesia and transferred to the PACU. STAT CXR ordered as biopsies were taken. Dr Sainz
[2019-03-30] MEDS: PANTOPRAZOLE 40 MG TABLET (FP) PO SCH (12:20)
[2019-03-30] MEDS: POLYETHYLENE GLYCOL 3350 119 GM BTL PO SCH (12:20)
[2019-03-30] MEDS: BACITRACIN 15 GM TUBE TOPICAL OINTMENT TP SCH (12:21)
--- NOTE | 2019-03-30 14:28 | PN ---
Physical Exam: SUBJECTIVE: HEME/ONC Patient seen and examined. s/p flex bronch. now extubated on 3L O2 NC Has no complaints. Denies sob, chest pain. OBJECTIVE: Vital Signs Period Temp Pulse Resp BP Sys/Gay Pulse Ox Last 24 Hr 98 F-99.4 F 99-108 14-24 111-136/70-89 97-100 GENERAL: a/o x 3, resting HEAD: Normal with no signs of trauma. EYES: PERRL, extraocular movements intact. Vision test: blurred vision in R eye. ENT: MMM NECK: supple. LUNGS: cta/bl HEART: Regular rate and rhythm, S1, S2 without murmur, rub or gallop. ABDOMEN: Soft, nontender, nondistended, normoactive bowel sounds, no guarding, no rebound EXTREMITIES: 2+ pulses, warm, well-perfused, no edema. NEUROLOGICAL: Cranial nerves II through XII grossly intact. 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 -R Breast with infiltrating duct cell Ca -Left axilla is poorly differentiated carcimoma which is different biopsy results from R breast findings. -s/p Flex Bronch today for Cavitary Lesion. -Its possible that Cavitary lesion could be a second primary tumor. -await flex bronch biopsy results -Repeat brain MRI -A Lyme titer was performed showing past exposure to Lyme. Patient states that she was bitten by a tick nymph a few months ago. -ID on board. Visit type - Emergency Visit Emergency Visit: Yes ED Registration Date: 03/17/19 Care time: The patient presented to the Emergency Department on the above date and was hospitalized for further evaluation of their emergent condition. - New Patient This patient is new to me today: No - Critical Care Critical Care patient: No ATTENDING PHYSICIAN STATEMENT I saw and evaluated the patient. I reviewed the resident's note and discussed the case with the resident. I agree with the resident's findings and plan as documented. SUBJECTIVE: OBJECTIVE: ASSESSMENT AND PLAN:
--- NOTE | 2019-03-30 16:23 | PN ---
Progress Note (short form) - Note Progress Note: resting comfortably after the bronch routine fungal and afb specimen sent as well as biopsy spoke with micro- will add on afb pcr to BAL lyme nash positive with what appears to be negative western blot- will confirm with chemistry in am will f/u results Problem List - Problems (1) Cerebrovascular accident (CVA) Code(s): I63.9 - CEREBRAL INFARCTION, UNSPECIFIED (2) Pulmonary cavitary lesion Code(s): J98.4 - OTHER DISORDERS OF LUNG
--- NOTE | 2019-03-30 19:39 | PN ---
Teaching Attending Note Name of Resident: Ashish Bishop ATTENDING PHYSICIAN STATEMENT I saw and evaluated the patient. I reviewed the resident's note and discussed the case with the resident. I agree with the resident's findings and plan as documented. SUBJECTIVE: Patient seen and examined Some swelling of right side of face and lip s/p procedure Last Vital Signs Temp Pulse Resp BP Pulse Ox 98.7 F 100 H 18 118/70 98 03/30/19 13:19 03/30/19 13:19 03/30/19 13:19 03/30/19 13:19 03/30/19 13:19 HEENT: VIKRAM, EOM Intact Oropharynx: No thrush, No mucositis Cor: RSR, No murmurs, No gallops Lungs: Clear to P&A Abd: Soft, Normal bowel sounds, No organomegaly Ext:No significant edema Skin: No rashes, Integument intact CBC, BMP 03/26/19 06:17 03/26/19 06:17 Current Medications Generic Name Dose Route Start Last Admin Trade Name Vladimirq PRN Reason Stop Dose Admin Atorvastatin Calcium 80 mg 03/30/19 22:00 Lipitor - PO HS [facility] Bacitracin 1 applic 03/31/19 10:00 Bacitracin - TP DAILY [facility] Dextrose/Sodium Chloride 1,000 mls @ 75 mls/hr 03/30/19 12:47 03/30/19 18:10 D5-1/2ns - IV 75 mls/hr ASDIR [facility] Administration Nystatin 500,000 units 03/30/19 18:00 03/30/19 18:11 Nystatin Oral Suspension - PO 500,000 units Q6HPO [facility] Administration Pantoprazole Sodium 40 mg 03/31/19 10:00 Protonix - PO DAILY [facility] Polyethylene Glycol 17 gm 03/31/19 10:00 Miralax (For Daily Use) - PO DAILY [facility] Impression: Right breast ca Left breast -poorly differentiated ca Bone mets BAND LINING BANDER infarcts S/P bronchoscopy Plan : Repeat MRI brain Await path- bronch and left axilla ID follow up OBJECTIVE: ASSESSMENT AND PLAN:
[2019-03-30] MEDS: ATORVASTATIN CA 80 MG TABLET (FP) PO SCH (22:00)
--- NOTE | 2019-03-30 23:14 | PN ---
Progress Note, Physician Chief Complaint: Patient is alert and oriented but forgetful. Breast biopsy results are pending. Bronchoscopy for BAL of the left lung was performed Paresthesias located in her left 2nd, 3rd and 4th fingers are persisting. Patient states that her vision is blurry and has difficulty seeing. 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 Findings were positive for NSTEMI and acute bilateral multiple strokes. A ct scan of the lungs showed cavity lesion in the left lung, and bone scan suggested metastatic bone lesions of the C,T,L spine with no spinal cord or epidural involvement by MRI. Mammography identified a right breast mass highly suspicious for cancer. - Current Medication List Current Medications: Active Medications Atorvastatin Calcium (Lipitor -) 80 mg PO HS [facility] Last Admin: 03/30/19 22:00 Dose: 80 mg Bacitracin (Bacitracin -) 1 applic TP DAILY [facility] Dextrose/Sodium Chloride (D5-1/2ns -) 1,000 mls @ 75 mls/hr IV ASDIR [facility] Last Admin: 03/30/19 18:10 Dose: 75 mls/hr Nystatin (Nystatin Oral Suspension -) 500,000 units PO Q6HPO [facility] Last Admin: 03/30/19 22:00 Dose: 500,000 units Pantoprazole Sodium (Protonix -) 40 mg PO DAILY [facility] Polyethylene Glycol (Miralax (For Daily Use) -) 17 gm PO DAILY [facility] - Objective Vital Signs: Vital Signs Temperature 98.7 F 03/30/19 13:19 Pulse Rate 100 H 03/30/19 13:19 Respiratory Rate 18 03/30/19 13:19 Blood Pressure 118/70 03/30/19 13:19 O2 Sat by Pulse Oximetry (%) 98 03/30/19 13:19 Constitutional: Yes: No Distress, Calm Eyes: Yes: Conjunctiva Clear, EOM Intact Neck: Yes: Supple, Trachea Midline Cardiovascular: Yes: Regular Rate and Rhythm, S1, S2 Respiratory: Yes: Regular Gastrointestinal: Yes: Normal Bowel Sounds, Soft Extremities: No: Calf Tenderness Edema: No Psychiatric: Yes: Alert, Oriented Labs: CBC, BMP 03/26/19 06:17 03/26/19 06:17 INR, PTT INR 1.16 (0.83-1.09) H 03/28/19 06:00 Problem List - Problems (1) Visual changes Assessment/Plan: MRI of brain ordered for tonight restart Lovenox wet reading: multiple micro densities suspicious for metastatic disease, small microhemorrhagic areas in the Sylvian fissure present will hold anticoagulation until official report available Code(s): H53.9 - UNSPECIFIED VISUAL DISTURBANCE (2) Breast mass, right Assessment/Plan: right breast mass and bone scan positive for bone mets breast biopsy was tolerated well ASA, Plavix. Lovenox were placed on hold MRI of the spine showing vertebral mets Code(s): N63.10 - UNSPECIFIED LUMP IN THE RIGHT BREAST, UNSPECIFIED QUADRANT (3) Cerebrovascular accident (CVA) Assessment/Plan: CVA as presenting symptom on admission Lovenox on hold for bronchoscopy in am Code(s): I63.9 - CEREBRAL INFARCTION, UNSPECIFIED (4) Pulmonary cavitary lesion Assessment/Plan: monitor WBC other etiologies to be excluded will check blood cultures X2 if temperature more than 101 bronchoschopy in am on Thursday Code(s): J98.4 - OTHER DISORDERS OF LUNG (5) Thyroid nodule Assessment/Plan: thyroid status functionally ok nodularity to be investigated as out patient Code(s): E04.1 - NONTOXIC SINGLE THYROID NODULE (6) NSTEMI (non-ST elevated myocardial infarction) Assessment/Plan: demand ischemia in the context of infection, poor oral intake, and dehydration Code(s): I21.4 - NON-ST ELEVATION (NSTEMI) MYOCARDIAL INFARCTION (7) Hepatitis B virus infection Assessment/Plan: carrier Code(s): B19.10 - UNSPECIFIED VIRAL HEPATITIS B WITHOUT HEPATIC COMA Qualifiers: Viral hepatitis chronicity: carrier Qualified Code(s): B18.1 - Chronic viral hepatitis B without delta-agent (8) Positive Lyme disease serology Assessment/Plan: past exposure, asymptomatic recall id for consultation on treatment paresthesias in the left 2nd, 3rd and 4th fingers are rather due to cervical radiculitis than Lyme Code(s): R76.8 - OTHER SPECIFIED ABNORMAL IMMUNOLOGICAL FINDINGS IN SERUM (9) Radiculitis Assessment/Plan: left cervical area with paresthesias in parvin left 2nd, 3rd and 4th fingers Code(s): M54.10 - RADICULOPATHY, SITE UNSPECIFIED
[2019-03-31] MEDS: NYSTATIN 500,000 UNITS/5 ML SUSPENSION PO SCH ×4 (01:42→17:35)
[2019-03-31] MEDS: POLYETHYLENE GLYCOL 3350 119 GM BTL PO SCH (09:54)
[2019-03-31] MEDS: PANTOPRAZOLE 40 MG TABLET (FP) PO SCH (09:57)
[2019-03-31] MEDS: BACITRACIN 15 GM TUBE TOPICAL OINTMENT TP SCH (09:57)
--- NOTE | 2019-03-31 11:41 | PN ---
Progress Note, Physician History of Present Illness: pulmonary alert,post bronch course stable,-cp,sob,-hemoptysis - Current Medication List Current Medications: Active Medications Atorvastatin Calcium (Lipitor -) 80 mg PO HS [facility] Last Admin: 03/30/19 22:00 Dose: 80 mg Bacitracin (Bacitracin -) 1 applic TP DAILY [facility] Last Admin: 03/31/19 09:57 Dose: 1 applic Nystatin (Nystatin Oral Suspension -) 500,000 units PO Q6HPO [facility] Last Admin: 03/31/19 06:55 Dose: 500,000 units Pantoprazole Sodium (Protonix -) 40 mg PO DAILY [facility] Last Admin: 03/31/19 09:57 Dose: 40 mg Polyethylene Glycol (Miralax (For Daily Use) -) 17 gm PO DAILY [facility] Last Admin: 03/31/19 09:54 Dose: Not Given - Objective Vital Signs: Vital Signs Temperature 98.9 F 03/31/19 08:26 Pulse Rate 102 H 03/31/19 08:26 Respiratory Rate 18 03/31/19 08:29 Blood Pressure 117/79 03/31/19 08:26 O2 Sat by Pulse Oximetry (%) 97 03/31/19 08:29 Constitutional: Yes: Well Nourished, Calm Eyes: Yes: WNL HENT: Yes: WNL Neck: Yes: WNL Cardiovascular: Yes: Regular Rate and Rhythm, S1, S2 Respiratory: Yes: CTA Bilaterally Gastrointestinal: Yes: Normal Bowel Sounds, Soft Extremities: Yes: WNL Edema: No Labs: CBC, BMP Problem List - Problems (1) Breast mass, right Code(s): N63.10 - UNSPECIFIED LUMP IN THE RIGHT BREAST, UNSPECIFIED QUADRANT (2) Cerebrovascular accident (CVA) Code(s): I63.9 - CEREBRAL INFARCTION, UNSPECIFIED (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 Enlarged lymph nodes in the left axilla. 2 hypodense areas in the thyroid gland. Cavitary mass LLL likely malignant - ASA & Plavix on hold - VTE prophylaxis - Check bronchial washing cytology and cultures DR SEO
--- NOTE | 2019-03-31 16:45 | PN ---
Progress Note (short form) - Note Progress Note: resting comfortably routine fungal and afb specimen sent as well as biopsy-pending spoke with micro- will add on afb pcr to BAL lyme nash positive with positive wetern blot - she apparently found a tick on herself within the last 3 months so the test was ordered Vital Signs Period Temp Pulse Resp BP Sys/Gay Pulse Ox Last 24 Hr 98.5 F-99.0 F 99-118 18-20 117-137/74-81 97-97 cor-rrr lungs clear abd soft,nt ext trace edema CBC, BMP 03/26/19 06:17 03/26/19 06:17 lyme nash positive with positive WB Microbiology 03/30/19 12:45 Bronchial Washings - Left Lower Lobe Gram Stain - Final 03/30/19 12:45 Bronchial Washings - Left Lower Lobe Bronchoalveolar Lavage Culture - Preliminary NORMAL RESPIRATORY PINO 03/30/19 13:00 Bronchial Washings - Left Lower Lobe Mycobacteria (PCR) - Preliminary 03/30/19 12:45 Bronchial Washings - Left Lower Lobe AFB Smear Concentration - Preliminary 03/30/19 12:45 Bronchial Washings - Left Lower Lobe Mycobacterial Culture - Preliminary 03/30/19 12:45 Bronchial Washings - Left Lower Lobe TRACEY Preparation - Preliminary 03/30/19 12:45 Bronchial Washings - Left Lower Lobe Fungal Culture - Preliminary 03/17/19 01:50 Urine - Urine Clean Catch Urine Culture - Final Staphylococcus Coagulase Neg a/p awaiting pathology results awaiting bronch results positve lyme with WB- never treated, recent tick exposure- will start doxycycline 100 bid for 3 weeks d/w dr gamble Problem List - Problems (1) Cerebrovascular accident (CVA) Code(s): I63.9 - CEREBRAL INFARCTION, UNSPECIFIED (2) Pulmonary cavitary lesion Code(s): J98.4 - OTHER DISORDERS OF LUNG
[2019-03-31] MEDS: DOXYCYCLINE HYCLATE 100 MG CAPSULE PO SCH (17:36)
--- NOTE | 2019-03-31 17:41 | PN ---
Progress Note, Physician History of Present Illness: awake, though slow to respond, dense Left field cut and neglect L Cancer HERRERA in progess, +Lyme noted as well unble to get FRANKIE-technical repeat MRI noted MRI BRAIN Impression. New recent acute infarcts. On diffusion-weighted images, multiple punctate foci of restricted diffusion are seen in the bilateral cerebellar hemispheres. New restrictive changes are seen in the bilateral occipital lobes. Restrictive diffusion changes are observed in the right hippocampus, to a lesser degree left hippocampus. 2 foci of restricted diffusion are observed in the medial, lateral aspect of the left thalamus. New foci of restricted diffusion are seen in the cortex of bilateral frontal lobes. Subacute enhancing infarct in superior aspect of the right cerebellum most completely resolved with mild enhancement. Subacute bilateral cortical infarct with a parenchymal, cortical enhancement Less intense leptomeningeal enhancement along the right cerebral convexity is seen, the thickness in the range of 0.9 mm - 1.1 mm versus 1.5 mm on prior MRI. - Current Medication List Current Medications: Active Medications Atorvastatin Calcium (Lipitor -) 80 mg PO HS [facility] Last Admin: 03/30/19 22:00 Dose: 80 mg Bacitracin (Bacitracin -) 1 applic TP DAILY [facility] Last Admin: 03/31/19 09:57 Dose: 1 applic Doxycycline Hyclate (Vibramycin -) 100 mg PO BID@1000,1800 [facility] Last Admin: 03/31/19 17:36 Dose: 100 mg Nystatin (Nystatin Oral Suspension -) 500,000 units PO Q6HPO [facility] Last Admin: 03/31/19 17:35 Dose: 500,000 units Pantoprazole Sodium (Protonix -) 40 mg PO DAILY [facility] Last Admin: 03/31/19 09:57 Dose: 40 mg Polyethylene Glycol (Miralax (For Daily Use) -) 17 gm PO DAILY [facility] Last Admin: 03/31/19 09:54 Dose: Not Given - Objective Vital Signs: Vital Signs Temperature 99 F 03/31/19 14:15 Pulse Rate 112 H 03/31/19 14:15 Respiratory Rate 18 03/31/19 14:15 Blood Pressure 132/81 03/31/19 14:15 O2 Sat by Pulse Oximetry (%) 97 03/31/19 08:29 Labs: CBC, BMP 03/26/19 06:17 03/26/19 06:17 INR, PTT INR 1.16 (0.83-1.09) H 03/28/19 06:00 Problem List - Problems (1) Cerebrovascular accident (CVA) Code(s): I63.9 - CEREBRAL INFARCTION, UNSPECIFIED (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 Assessment/Plan subacute encephalopathy found to have 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
--- NOTE | 2019-03-31 17:52 | PATH ---
Surgical Pathology Report Patient Name: SHARYN BERRY [facility]. Rec. #: [id number] /Age/Gender: 1945 (Age: 74) / F Account: [id number] Location: 4 W TELEMETRY U Taken: 03/28/2019 Received: 03/28/2019 Reported: 03/31/2019 Physicians: Davidson Sarkar M.D. Specimen(s) Received A: RIGHT BREAST 12:00 B: LEFT AXILLA LYMPH NODE Clinical History Palpable mass Mammographic findings/ultrasound findings: Highly suspicious/malignant Right breast -2.41 cm Left Axilla -1.21 cm Final Diagnosis A. BREAST, RIGHT, 12:00, ULTRASOUND GUIDED CORE BIOPSY: INVASIVE DUCTAL CARCINOMA, MODERATELY DIFFERENTIATED, MEASURING AT LEAST 6 MM IN THIS MATERIAL. DUCTAL CARCINOMA IN SITU (DCIS), CRIBRIFORM TYPE, INTERMEDIATE NUCLEAR GRADE, WITH ASSOCIATED MODERATE NECROSIS. B. LEFT AXILLA, CORE BIOPSY: METASTATIC CARCINOMA, POORLY DIFFERENTIATED, CONSISTENT WITH LUNG ORIGIN. Comment: Tumors from the right breast and left axilla are morphologically different. In part A, Immunohistochemical stains performed and interpreted at [facility] show the tumor is positive for E-cadherin, supportive of ductal phenotype. Additional Immunohistochemical stains performed at [place], [place] ([id number]) and interpreted at [facility] show the tumor is positive for ANASTASIA-3 and mammaglobin. This immunophenotype together with the presence of DCIS are supportive of primary breast origin. Part B, Immunohistochemical stains performed and interpreted at [facility] show the tumor is positive TTF-1, with focal weak staining for ER. SC stain is negative. Additional Immunohistochemical stains performed at [place], [place] ([id number]) and interpreted at [facility] show The tumor is positive for Napsin-A, while negative for ANASTASIA-3 and p40. This immunophenotype is consistent with primary lung origin. History of breast and lung masses noted. Suggest clinical and radiologic correlation. Findings discussed with Drs. Bryson and Ervin. Results of Estrogen Receptor (ER) and Progesterone Receptor (SC) studies performed on block "A" at [facility] are as follows: ER (clone [id number] mouse monoclonal antibody by [employer]): 100% nuclear staining with strong intensity (Positive). SC (clone16 mouse monoclonal antibody by [employer]): 0% nuclear staining (Negative). Positive and negative controls (internal if applicable) show appropriate results. Formalin fixation and cold ischemic times are within current ASCO/CAP recommendations for ER, SC and Her2 testing. Results of Her2 (IHC) & Ki-67 studies performed on block "A" at [place], [place] ([id number]) are as follows: Her2 IHC (EP3 from [employer], formerly known as [id number], using [employer] Polymer Refine detection kit): 0-1+ (Negative). Ki-67: ~5% (Low proliferative index). Positive and negative controls (internal if applicable) show appropriate results. Electronically Signed Rita Newberry M.D. Gross Description A. Received in formalin labeled "right 12:00," are 3 miller-yellow, cylindrical portions of fibroadipose tissue ranging from 0.4-1.1 cm in length and averaging 0.1 cm in diameter. The specimens are submitted in toto in one cassette. B. Received in formalin labeled "left axilla," are 4 miller-yellow, cylindrical portions of fibroadipose tissue ranging from 0.3-0.8 cm in length and averaging 0.1 cm in diameter. The specimens are submitted in toto in one cassette. Time to formalin fixation: Less than one minute Total formalin fixation time: Approximately 9 hours. 03/28/201903/28/2019
--- NOTE | 2019-03-31 18:04 | PATH ---
Cytology Non-Gynecological Report Patient Name: SHARYN BERRY Med. Rec. #: [id number] /Age/Gender: 1945 (Age: 74) / F Account: [id number] Location: 4 W TELEMETRY U Taken: 03/30/2019 Received: 03/30/2019 Reported: 03/31/2019 Physicians: Davidson Ansari M.D. Norman Rosen, M.D. Specimen(s) Received A: LEFT LOWER LOBE BRONCHIAL WASHINGS B: LEFT LOWER LOBE BRONCHIAL BRUSHING Clinical History Cavitary lung mass, breast mass Final Diagnosis A. BRONCHIAL WASHINGS, LOWER LOBE, LEFT, FOR CYTOLOGY: SATISFACTORY FOR EVALUATION. POSITIVE FOR MALIGNANT CELLS. POORLY DIFFERENTIATED CARCINOMA. SEE COMMENT. B. BRONCHIAL BRUSHING, LOWER LOBE, LEFT, FOR CYTOLOGY: SATISFACTORY FOR EVALUATION. NEGATIVE FOR MALIGNANT CELLS. NUMEROUS MACROPHAGES AND BRONCHIAL EPITHELIAL CELLS. Comment: Part A, Scant evidence. There are rare aggregates of malignant epithelial cells with enlarged hyperchromatic nuclei, irregular nuclear contours, and prominent nucleoli in a background of macrophages and bronchial epithelial cells. History of lung and breast carcinomas noted. Suggest clinical and radiologic correlation. See concurrent ([id number]) and prior ([id number]) materials. Electronically Signed Rita Newberry M.D. Gross Description A. Approximately 30 cc of clear fluid received fixed in 50% alcohol. One cytofunnel prepared and Pap stained. One cellblock prepared. B. Approximately 2 cc of miller fluid received fresh. One cytofunnel prepared and Pap stained. One cellblock prepared.
--- NOTE | 2019-03-31 20:18 | PN ---
Progress Note (short form) - Note Progress Note: Patient seen and examined Problems - Breast ca Lung ca with positive axillary nodes Bone mets- which primary? Multiple GRAZING EXAMINER infarcts - Unable to do FRANKIE ?? marantic endocarditis , ? hypercoaguability ? other + LYME - on doxycycline ? cerebellar met vs infarct - I ordered a follow up MRI, but CT done Need for a/c in view of multiple embolic events ? need for biopsy of bone Await estrogen/ progesterone, and Her-2 abdelrahman on breast ca ? leptomeningeal disease although less enhancement on current imaging study To discuss with neurology.
--- NOTE | 2019-03-31 21:03 | PN ---
Progress Note, Physician Chief Complaint: MRI performed last night showing possibility of microhemorrhagies and metastatic emboli. Discussed with Dr. Carpio and advised CT in view of microhemorrhagic areas and need for anticoagulation. I requested Neurology input. Patient is alert and oriented but forgetful. Breast biopsy results are pending. Bronchoscopy for BAL of the left lung was performed Paresthesias located in her left 2nd, 3rd and 4th fingers are persisting. Patient states that her vision is "blurry". - Current Medication List Current Medications: Active Medications Atorvastatin Calcium (Lipitor -) 80 mg PO HS [facility] Last Admin: 03/30/19 22:00 Dose: 80 mg Bacitracin (Bacitracin -) 1 applic TP DAILY [facility] Last Admin: 03/31/19 09:57 Dose: 1 applic Doxycycline Hyclate (Vibramycin -) 100 mg PO BID@1000,1800 [facility] Last Admin: 03/31/19 17:36 Dose: 100 mg Enoxaparin Sodium (Lovenox -) 60 mg SQ BID [facility] Nystatin (Nystatin Oral Suspension -) 500,000 units PO Q6HPO [facility] Last Admin: 03/31/19 17:35 Dose: 500,000 units Pantoprazole Sodium (Protonix -) 40 mg PO DAILY [facility] Last Admin: 03/31/19 09:57 Dose: 40 mg Polyethylene Glycol (Miralax (For Daily Use) -) 17 gm PO DAILY [facility] Last Admin: 03/31/19 09:54 Dose: Not Given - Objective Vital Signs: Vital Signs Temperature 98.9 F 03/31/19 17:00 Pulse Rate 106 H 03/31/19 17:00 Respiratory Rate 20 03/31/19 17:00 Blood Pressure 134/77 03/31/19 17:00 O2 Sat by Pulse Oximetry (%) 97 03/31/19 08:29 Constitutional: Yes: No Distress, Calm Eyes: Yes: Conjunctiva Clear, EOM Intact HENT: Yes: Atraumatic, Normocephalic Neck: Yes: Supple, Trachea Midline Cardiovascular: Yes: Regular Rate and Rhythm, S1, S2 Gastrointestinal: Yes: Normal Bowel Sounds, Soft, Abdomen, Obese Breast(s): Yes: Right (hematom apost biopsy). No: Discharge from Nipple Extremities: No: Calf Tenderness Edema: No Peripheral Pulses WNL: Yes Wound/Incision: Yes: Dressing Dry and Intact Neurological: Yes: Alert, Oriented Psychiatric: Yes: Alert, Oriented Labs: CBC, BMP 03/26/19 06:17 03/26/19 06:17 INR, PTT INR 1.16 (0.83-1.09) H 03/28/19 06:00 Problem List - Problems (1) Visual changes Assessment/Plan: MRI of brain performed last night and noncontrast CT ordered to clarify the possible bilateral cerebral micro hemorhagies restart Lovenox as per Neuro wet reading: multiple micro densities suspicious for metastatic disease, small microhemorrhagic areas in the Sylvian fissure present official reading not confirming the above Code(s): H53.9 - UNSPECIFIED VISUAL DISTURBANCE (2) Breast mass, right Assessment/Plan: bleeding stopped Code(s): N63.10 - UNSPECIFIED LUMP IN THE RIGHT BREAST, UNSPECIFIED QUADRANT (3) Cerebrovascular accident (CVA) Assessment/Plan: CVA as presenting symptom on admission Code(s): I63.9 - CEREBRAL INFARCTION, UNSPECIFIED (4) Pulmonary cavitary lesion Assessment/Plan: monitor WBC other etiologies to be excluded will check blood cultures X2 if temperature more than 101 bronchoschopy and BAL pending Code(s): J98.4 - OTHER DISORDERS OF LUNG (5) Thyroid nodule Assessment/Plan: thyroid status functionally ok nodularity to be investigated as out patient Code(s): E04.1 - NONTOXIC SINGLE THYROID NODULE (6) NSTEMI (non-ST elevated myocardial infarction) Assessment/Plan: demand ischemia in the context of infection, poor oral intake, and dehydration Code(s): I21.4 - NON-ST ELEVATION (NSTEMI) MYOCARDIAL INFARCTION (7) Hepatitis B virus infection Assessment/Plan: carrier Code(s): B19.10 - UNSPECIFIED VIRAL HEPATITIS B WITHOUT HEPATIC COMA Qualifiers: Viral hepatitis chronicity: carrier Qualified Code(s): B18.1 - Chronic viral hepatitis B without delta-agent (8) Positive Lyme disease serology Assessment/Plan: past exposure, asymptomatic Doxicycline as per ID Code(s): R76.8 - OTHER SPECIFIED ABNORMAL IMMUNOLOGICAL FINDINGS IN SERUM (9) Radiculitis Assessment/Plan: left cervical area with paresthesias in parvin left 2nd, 3rd and 4th fingers Code(s): M54.10 - RADICULOPATHY, SITE UNSPECIFIED
[2019-03-31] MEDS: ENOXAPARIN NA (PORCINE) 60 MG/0.6 ML DISP.SYRIN SQ SCH (21:56)
[2019-03-31] MEDS: ATORVASTATIN CA 80 MG TABLET (FP) PO SCH (21:56)
[2019-04-01] MEDS: NYSTATIN 500,000 UNITS/5 ML SUSPENSION PO SCH ×5 (01:00→18:12)
[2019-04-01] MEDS: PANTOPRAZOLE 40 MG TABLET (FP) PO SCH (10:12)
[2019-04-01] MEDS: BACITRACIN 15 GM TUBE TOPICAL OINTMENT TP SCH (10:12)
[2019-04-01] MEDS: POLYETHYLENE GLYCOL 3350 119 GM BTL PO SCH (10:12)
[2019-04-01] MEDS: DOXYCYCLINE HYCLATE 100 MG CAPSULE PO SCH ×2 (10:13→18:05)
--- NOTE | 2019-04-01 10:28 | PN ---
Progress Note, Physician History of Present Illness: pulmonary alert,comfortable,-resp distress,+ visual complaints. bronchial washing - malignant cells,cultures so far negative - Current Medication List Current Medications: Active Medications Atorvastatin Calcium (Lipitor -) 80 mg PO HS [facility] Last Admin: 03/31/19 21:56 Dose: 80 mg Bacitracin (Bacitracin -) 1 applic TP DAILY [facility] Last Admin: 04/01/19 10:12 Dose: 1 applic Doxycycline Hyclate (Vibramycin -) 100 mg PO BID@1000,1800 [facility] Last Admin: 04/01/19 10:13 Dose: 100 mg Enoxaparin Sodium (Lovenox -) 60 mg SQ BID [facility] Last Admin: 03/31/19 21:56 Dose: 60 mg Nystatin (Nystatin Oral Suspension -) 500,000 units PO Q6HPO [facility] Last Admin: 04/01/19 06:13 Dose: 500,000 units Pantoprazole Sodium (Protonix -) 40 mg PO DAILY [facility] Last Admin: 04/01/19 10:12 Dose: 40 mg Polyethylene Glycol (Miralax (For Daily Use) -) 17 gm PO DAILY [facility] Last Admin: 04/01/19 10:12 Dose: Not Given - Objective Vital Signs: Vital Signs Temperature 98.7 F 04/01/19 08:23 Pulse Rate 109 H 04/01/19 08:23 Respiratory Rate 20 04/01/19 08:27 Blood Pressure 132/84 04/01/19 08:23 O2 Sat by Pulse Oximetry (%) 100 04/01/19 08:27 Constitutional: Yes: Well Nourished, Calm Eyes: Yes: WNL HENT: Yes: WNL Neck: Yes: WNL Cardiovascular: Yes: Regular Rate and Rhythm, S1, S2 Respiratory: Yes: CTA Bilaterally Gastrointestinal: Yes: Normal Bowel Sounds, Soft Extremities: Yes: WNL Edema: No Labs: Problem List - Problems (1) Breast mass, right Code(s): N63.10 - UNSPECIFIED LUMP IN THE RIGHT BREAST, UNSPECIFIED QUADRANT (2) Cerebrovascular accident (CVA) Code(s): I63.9 - CEREBRAL INFARCTION, UNSPECIFIED (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 Enlarged lymph nodes in the left axilla. 2 hypodense areas in the thyroid gland. Cavitary mass LLL likely malignant - ASA & Plavix on hold - VTE prophylaxis - Check bronchial washing cultures - lovenox - optho [employer]
[2019-04-01] MEDS: ENOXAPARIN NA (PORCINE) 60 MG/0.6 ML DISP.SYRIN SQ SCH ×2 (11:42→22:18)
--- NOTE | 2019-04-01 12:22 | PN ---
Progress Note (short form) - Note Progress Note: Patient seen and examined Spent greater than 45 minutes with patient and sister . Sister wants patient to go to [facility] for an opinion. The results of the breast biopsy - reveals it to be ER+, PA-, Her-2- negative . The sister agrees on hormone therapy. Will begin arimidex . The lung ca is an adenoca . As patient is a non smoker, and female, she is the perfect phenotype to have an EGFR mutation and may be a candidate for an anti- EGFR agent. I have requested PDL-1 mutation and Foundation 1 studies to be done on lung tissue . This will take several weeks. I have suggested in interim to begin chemotherapy and have a port inserted. The sister is reluctant to do same as she is afraid beginning any treatment might possibly interfere with any opinions at [facility]. In the interim off a/c doing testing , patient has developed multiple new embolic strokes. While ideally a FRANKIE would be of benefit and helpful, it will not traveler changer . The patient will need extermination inspector ongoing a/c. Will try an obtain opthamolgy evaluation. May have left field cut and having difficulty with vision.
--- NOTE | 2019-04-01 14:46 | PATH ---
Surgical Pathology Report Patient Name: SHARYN BERRY Med. Rec. #: [id number] /Age/Gender: 1945 (Age: 74) / F Account: [id number] Location: [facility] MED/SURG Taken: 03/30/2019 Received: 03/30/2019 Reported: 04/01/2019 Physicians: Davidson Ansari M.D. Specimen(s) Received LEFT LOWER LOBE LUNG BIOPSY Clinical History Rule out left lower lobe mass Final Diagnosis LUNG, LEFT LOWER LOBE, BIOPSY: ADENOCARCINOMA, POORLY DIFFERENTIATED. SEE COMMENT. Comment: There are few aggregates of malignant epithelial cells in a background of necrosis and dense fibrosis. Immunohistochemical stain performed and interpreted at [facility] shows TTF-1 is positive. Additional immunohistochemical stains performed at [place], [place] ([id number]) and interpreted at [facility] show the tumor is positive for Napsin A, while negative for p40. Prior material ([id number]) was reviewed and the present tumor is morphologically similar to the left axillary lymph node metastasis. See concurrent material ([id number]). Findings discussed with Drs. Bryson and Luz Marina. Positive and negative controls (internal if applicable) show appropriate results. Electronically Signed Rita Newberry M.D. Gross Description Received in formalin, labeled "biopsy left lower lobe" are 3 miller, irregular portions of soft tissue ranging from 0.1-0.2 cm. in greatest dimension. The specimens are submitted in toto in one cassette. 03/30/201903/30/2019
--- NOTE | 2019-04-01 21:50 | PN ---
Progress Note, Physician Chief Complaint: Patient coughing quite frequently,and having dry cough. Late this evening developed fever. Sister present at bed side. Symptoms Pathology results and immunohistochemistry available and showing a breast cancer and lung cancer. 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 Findings were positive for NSTEMI and acute bilateral multiple strokes. A ct scan of the lungs showed cavity lesion in the left lung, and bone scan suggested metastatic bone lesions of the C,T,L spine with no spinal cord or epidural involvement by MRI. Mammography identified a right breast mass highly suspicious for cancer. - Current Medication List Current Medications: Active Medications Anastrozole (Arimidex -) 1 mg PO DAILY [facility] Atorvastatin Calcium (Lipitor -) 80 mg PO HS [facility] Last Admin: 03/31/19 21:56 Dose: 80 mg Bacitracin (Bacitracin -) 1 applic TP DAILY [facility] Last Admin: 04/01/19 10:12 Dose: 1 applic Doxycycline Hyclate (Vibramycin -) 100 mg PO BID@1000,1800 [facility] Last Admin: 04/01/19 18:05 Dose: 100 mg Enoxaparin Sodium (Lovenox -) 60 mg SQ BID [facility] Last Admin: 04/01/19 11:42 Dose: 60 mg Nystatin (Nystatin Oral Suspension -) 500,000 units PO Q6HPO [facility] Last Admin: 04/01/19 18:12 Dose: Not Given Pantoprazole Sodium (Protonix -) 40 mg PO DAILY [facility] Last Admin: 04/01/19 10:12 Dose: 40 mg Polyethylene Glycol (Miralax (For Daily Use) -) 17 gm PO DAILY [facility] Last Admin: 04/01/19 10:12 Dose: Not Given - Objective Vital Signs: Vital Signs Temperature 99.2 F 04/01/19 15:00 Pulse Rate 110 H 04/01/19 15:00 Respiratory Rate 18 04/01/19 15:00 Blood Pressure 136/86 04/01/19 15:00 O2 Sat by Pulse Oximetry (%) 100 04/01/19 08:27 Constitutional: Yes: No Distress, Calm Eyes: Yes: Conjunctiva Clear, EOM Intact Cardiovascular: Yes: Regular Rate and Rhythm, S1, S2 Respiratory: Yes: Regular, CTA Bilaterally Gastrointestinal: Yes: Normal Bowel Sounds, Soft Labs: CBC, BMP 03/26/19 06:17 03/26/19 06:17 INR, PTT INR 1.16 (0.83-1.09) H 03/28/19 06:00 Problem List - Problems (1) Visual changes Code(s): H53.9 - UNSPECIFIED VISUAL DISTURBANCE (2) Breast mass, right Code(s): N63.10 - UNSPECIFIED LUMP IN THE RIGHT BREAST, UNSPECIFIED QUADRANT (3) Cerebrovascular accident (CVA) Code(s): I63.9 - CEREBRAL INFARCTION, UNSPECIFIED (4) Pulmonary cavitary lesion Code(s): J98.4 - OTHER DISORDERS OF LUNG (5) Thyroid nodule Code(s): E04.1 - NONTOXIC SINGLE THYROID NODULE (6) NSTEMI (non-ST elevated myocardial infarction) Code(s): I21.4 - NON-ST ELEVATION (NSTEMI) MYOCARDIAL INFARCTION (7) Hepatitis B virus infection Code(s): B19.10 - UNSPECIFIED VIRAL HEPATITIS B WITHOUT HEPATIC COMA Qualifiers: Viral hepatitis chronicity: carrier Qualified Code(s): B18.1 - Chronic viral hepatitis B without delta-agent (8) Positive Lyme disease serology Code(s): R76.8 - OTHER SPECIFIED ABNORMAL IMMUNOLOGICAL FINDINGS IN SERUM (9) Radiculitis Code(s): M54.10 - RADICULOPATHY, SITE UNSPECIFIED
--- NOTE | 2019-04-01 22:08 | PN ---
Progress Note, Physician Chief Complaint: Patient worsening dry cough, developed fever. Sister present at bed side. Pathology results and immunohistochemistry available and showing 2 concomitant cancers: breast and lung cancer. 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 Findings were positive for NSTEMI and acute bilateral multiple strokes. A ct scan of the lungs showed cavity lesion in the left lung, and bone scan suggested metastatic bone lesions of the C,T,L spine with no spinal cord or epidural involvement by MRI. Results of breast tissue IHC are ER+, AR-, HER2 - Started on Arimidex. Family and the daughter who is the HCP, did not OK yet the chemotherapy. The patient was found to have positive Lyme titer and received currently Doxycicline - Current Medication List Current Medications: Active Medications Anastrozole (Arimidex -) 1 mg PO DAILY [facility] Atorvastatin Calcium (Lipitor -) 80 mg PO HS [facility] Last Admin: 03/31/19 21:56 Dose: 80 mg Bacitracin (Bacitracin -) 1 applic TP DAILY [facility] Last Admin: 04/01/19 10:12 Dose: 1 applic Doxycycline Hyclate (Vibramycin -) 100 mg PO BID@1000,1800 [facility] Last Admin: 04/01/19 18:05 Dose: 100 mg Enoxaparin Sodium (Lovenox -) 60 mg SQ BID [facility] Last Admin: 04/01/19 11:42 Dose: 60 mg Dextrose/Sodium Chloride (D5-1/2ns -) 1,000 mls @ 75 mls/hr IV ASDIR [facility] Nystatin (Nystatin Oral Suspension -) 500,000 units PO Q6HPO [facility] Last Admin: 04/01/19 18:12 Dose: Not Given Pantoprazole Sodium (Protonix -) 40 mg PO DAILY [facility] Last Admin: 04/01/19 10:12 Dose: 40 mg Polyethylene Glycol (Miralax (For Daily Use) -) 17 gm PO DAILY [facility] Last Admin: 04/01/19 10:12 Dose: Not Given - Objective Vital Signs: Vital Signs Temperature 99.2 F 04/01/19 15:00 Pulse Rate 110 H 04/01/19 15:00 Respiratory Rate 18 04/01/19 15:00 Blood Pressure 136/86 04/01/19 15:00 O2 Sat by Pulse Oximetry (%) 100 04/01/19 08:27 Constitutional: Yes: Calm Eyes: Yes: Conjunctiva Clear, EOM Intact HENT: Yes: Atraumatic, Normocephalic Cardiovascular: Yes: Regular Rate and Rhythm, S1, S2 Respiratory: Yes: Regular, CTA Bilaterally, Cough. No: SOB on Exertion, Wheezes ...Rectal Exam: Yes: Deferred Extremities: No: Calf Tenderness Neurological: Yes: Alert, Oriented Psychiatric: Yes: Alert, Oriented Labs: CBC, BMP 03/26/19 06:17 03/26/19 06:17 INR, PTT INR 1.16 (0.83-1.09) H 03/28/19 06:00 - ....Imaging X-ray: Pending Problem List - Problems (1) Visual changes Assessment/Plan: requested Ophthalmology eval CT scan of brain did not confirm small microhemorrhagic areas in the Sylvian as suspected on the last MRI restart Lovenox as per Neuro Code(s): H53.9 - UNSPECIFIED VISUAL DISTURBANCE (2) Breast mass, right Assessment/Plan: ER+, AR-. HER2 - post biopsy bleeding stopped resumed Lovenox Code(s): N63.10 - UNSPECIFIED LUMP IN THE RIGHT BREAST, UNSPECIFIED QUADRANT (3) Cerebrovascular accident (CVA) Assessment/Plan: CVA as presenting symptom on admission Code(s): I63.9 - CEREBRAL INFARCTION, UNSPECIFIED (4) Pulmonary cavitary lesion Assessment/Plan: bronchoscopy positive for neptali CA Adeno carcinoma, EGFR genetic testing is pending patient had fever WBC in am other etiologies to be excluded blood cultures X2 Code(s): J98.4 - OTHER DISORDERS OF LUNG (5) Thyroid nodule Assessment/Plan: thyroid status functionally ok nodularity to be investigated as out patient Code(s): E04.1 - NONTOXIC SINGLE THYROID NODULE (6) NSTEMI (non-ST elevated myocardial infarction) Assessment/Plan: demand ischemia in the context of infection, poor oral intake, and dehydration Code(s): I21.4 - NON-ST ELEVATION (NSTEMI) MYOCARDIAL INFARCTION (7) Hepatitis B virus infection Assessment/Plan: carrier Code(s): B19.10 - UNSPECIFIED VIRAL HEPATITIS B WITHOUT HEPATIC COMA Qualifiers: Viral hepatitis chronicity: carrier Qualified Code(s): B18.1 - Chronic viral hepatitis B without delta-agent (8) Positive Lyme disease serology Assessment/Plan: past exposure, asymptomatic Doxicycline as per ID Code(s): R76.8 - OTHER SPECIFIED ABNORMAL IMMUNOLOGICAL FINDINGS IN SERUM (9) Radiculitis Assessment/Plan: left cervical area with paresthesias in the left 2nd, 3rd and 4th fingers Code(s): M54.10 - RADICULOPATHY, SITE UNSPECIFIED Assessment/Plan D/W daughter and family. At this time they refused the Port a cath, and chemotherapy. Family is interested in a second opinion and believes that chemotherapy would alter the results of the second opinion evaluation. I discussed and explained the implications of delaying chemotherapy
[2019-04-01] MEDS: DEXTROSE 5%-0.45% SALINE 1,000 ML IV SCH (22:16)
[2019-04-01] MEDS: ATORVASTATIN CA 80 MG TABLET (FP) PO SCH (22:17)
[2019-04-01] MEDS: ACETAMINOPHEN 500 MG TABLET (FP) PO PRN (22:29)
[2019-04-02] MEDS: NYSTATIN 500,000 UNITS/5 ML SUSPENSION PO SCH ×4 (01:07→17:33)
[2019-04-02] MEDS ORDERED: PT OWN MED DRAWER 7, Y5N ONE (02:30)
[2019-04-02] MEDS: ACETAMINOPHEN 500 MG TABLET (FP) PO PRN (06:15)
[2019-04-02 06:23] LABS: HYALINE CASTS 0 /lpf (0-8); PH,URINE 6.5 (5.0-8.0); URINE APPEARANCE CLEAR; URINE BACTERIA 2183.7 /hpf (NEGATIVE); URINE BILIRUBIN NEGATIVE (NEGATIVE); URINE COLOR YELLOW; URINE GLUCOSE (UA) NEGATIVE (NEGATIVE); URINE KETONE NEGATIVE (NEGATIVE); URINE LEUK ESTERASE NEGATIVE (NEGATIVE); URINE NITRITE POSITIVE (NEGATIVE); URINE PROTEIN NEGATIVE (NEGATIVE); URINE RBC 4 /hpf (0-4); URINE UROBILINOGEN 0.2 mg/dL (0.2-1.0); URINE WBC 2 /hpf (0-5)
[2019-04-02 07:34] LABS: BASO % 0.6 % (0-2.0); EOS % 2.6 % (0-4.5); HEMATOCRIT 32.4 % (32.4-45.2); HEMOGLOBIN 10.9 GM/dL (10.7-15.3); LYMPH % 13.5 % (8-40); MCHC 33.6 g/dl (32.0-36.0); MEAN CELL VOLUME 89.5 fl (80-96); MEAN PLT VOLUME 8.2 fl (7.5-11.1); MONO % 9.6 % (3.8-10.2); NEUT % 73.7 % (42.8-82.8); PLATELET COUNT 96 K/MM3 (134-434); RBC 3.62 M/mm3 (3.60-5.2); RDW 14.1 % (11.6-15.6)
[2019-04-02 07:48] LABS: ALBUMIN 2.6 g/dl (3.4-5.0); BILIRUBIN,TOTAL 0.6 mg/dL (0.2-1); BLOOD UREA NITROGEN 11.5 mg/dL (7-18); CALCIUM 8.2 mg/dL (8.5-10.1); CREATININE 0.6 mg/dL (0.55-1.3); POTASSIUM 3.6 mmol/L (3.5-5.1); TOT PROT 6.3 g/dl (6.4-8.2)
[2019-04-02] MEDS: ENOXAPARIN NA (PORCINE) 60 MG/0.6 ML DISP.SYRIN SQ SCH ×2 (10:21→22:33)
[2019-04-02] MEDS: POLYETHYLENE GLYCOL 3350 119 GM BTL PO SCH (10:22)
[2019-04-02] MEDS: PANTOPRAZOLE 40 MG TABLET (FP) PO SCH (10:23)
[2019-04-02] MEDS: DOXYCYCLINE HYCLATE 100 MG CAPSULE PO SCH ×2 (10:23→17:33)
[2019-04-02] MEDS: BACITRACIN 15 GM TUBE TOPICAL OINTMENT TP SCH (10:48)
[2019-04-02] MEDS: DEXTROSE 5%-0.45% SALINE 1,000 ML IV SCH (10:48)
[2019-04-02] MEDS: ANASTROZOLE 1 MG TABLET PO SCH ×2 (11:24→11:26)
--- NOTE | 2019-04-02 12:50 | PN ---
Progress Note (short form) - Note Progress Note: oob in chair eating lunch fever overnight, feels well now no dysuria, no phlebitis no cough no diarrhea Vital Signs Period Temp Pulse Resp BP Sys/Gay Pulse Ox Last 24 Hr 98.6 F-101.9 F 91-112 18-18 118-140/74-90 100 cor-rrr lungs decresed bs at bases abd soft,nt ext no edema no phlebitis CBC, BMP 04/02/19 05:30 04/02/19 05:30 Microbiology 03/30/19 12:45 Bronchial Washings - Left Lower Lobe AFB Smear Concentration - Final 03/30/19 12:45 Bronchial Washings - Left Lower Lobe Mycobacterial Culture - Preliminary 03/30/19 12:45 Bronchial Washings - Left Lower Lobe Gram Stain - Final 03/30/19 12:45 Bronchial Washings - Left Lower Lobe Bronchoalveolar Lavage Culture - Final NORMAL RESPIRATORY PINO 03/30/19 13:00 Bronchial Washings - Left Lower Lobe Mycobacteria (PCR) - Preliminary 03/30/19 12:45 Bronchial Washings - Left Lower Lobe TRACEY Preparation - Preliminary 03/30/19 12:45 Bronchial Washings - Left Lower Lobe Fungal Culture - Preliminary 03/17/19 01:50 Urine - Urine Clean Catch Urine Culture - Final Staphylococcus Coagulase Neg lyme nash positive with positive WB cxray left lower lobe infiltrate vs atelectasis a/p fever- f/u cultures, incentive spirometry repeat cxray in the dept-I suspect atelectasis d/w nurse d/c tylenol to see if she has further fever positve lyme with WB- never treated, recent tick exposure- will start doxycycline 100 bid for 3 weeks oncology note reviewed- she has 2 primary malignancies Problem List - Problems (1) Cerebrovascular accident (CVA) Code(s): I63.9 - CEREBRAL INFARCTION, UNSPECIFIED (2) Pulmonary cavitary lesion Code(s): J98.4 - OTHER DISORDERS OF LUNG
--- NOTE | 2019-04-02 14:00 | PN ---
Progress Note, Physician History of Present Illness: PULMONARY ALERT ,OOB-CHAIR,CP,SOB - Current Medication List Current Medications: Active Medications Anastrozole (Arimidex -) 1 mg PO DAILY [facility] Last Admin: 04/02/19 11:26 Dose: 1 mg Atorvastatin Calcium (Lipitor -) 80 mg PO HS [facility] Last Admin: 04/01/19 22:17 Dose: 80 mg Bacitracin (Bacitracin -) 1 applic TP DAILY [facility] Last Admin: 04/02/19 10:48 Dose: 1 applic Doxycycline Hyclate (Vibramycin -) 100 mg PO BID@1000,1800 [facility] Last Admin: 04/02/19 10:23 Dose: 100 mg Enoxaparin Sodium (Lovenox -) 60 mg SQ BID [facility] Last Admin: 04/02/19 10:21 Dose: 60 mg Dextrose/Sodium Chloride (D5-1/2ns -) 1,000 mls @ 75 mls/hr IV ASDIR [facility] Last Admin: 04/02/19 10:48 Dose: 75 mls/hr Nystatin (Nystatin Oral Suspension -) 500,000 units PO Q6HPO [facility] Last Admin: 04/02/19 11:24 Dose: 500,000 units Pantoprazole Sodium (Protonix -) 40 mg PO DAILY [facility] Last Admin: 04/02/19 10:23 Dose: 40 mg Polyethylene Glycol (Miralax (For Daily Use) -) 17 gm PO DAILY [facility] Last Admin: 04/02/19 10:22 Dose: Not Given - Objective Vital Signs: Vital Signs Temperature 99.3 F 04/02/19 06:00 Pulse Rate 102 H 04/02/19 06:00 Respiratory Rate 18 04/02/19 06:00 Blood Pressure 127/81 04/02/19 06:00 O2 Sat by Pulse Oximetry (%) 100 04/01/19 21:00 Constitutional: Yes: Well Nourished, Calm Eyes: Yes: WNL HENT: Yes: WNL Neck: Yes: WNL Cardiovascular: Yes: Regular Rate and Rhythm, S1, S2 Respiratory: Yes: CTA Bilaterally Gastrointestinal: Yes: Normal Bowel Sounds, Soft Extremities: Yes: WNL Edema: No Labs: CBC, BMP 04/02/19 05:30 04/02/19 05:30 INR, PTT INR 1.16 (0.83-1.09) H 03/28/19 06:00 Problem List - Problems (1) Breast mass, right Code(s): N63.10 - UNSPECIFIED LUMP IN THE RIGHT BREAST, UNSPECIFIED QUADRANT (2) Cerebrovascular accident (CVA) Code(s): I63.9 - CEREBRAL INFARCTION, UNSPECIFIED (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 Enlarged lymph nodes in the left axilla. 2 hypodense areas in the thyroid gland. Cavitary mass LLL likely malignant - Chemo as per oncology - VTE prophylaxis - lovenox DR SOE
--- NOTE | 2019-04-02 15:45 | PN ---
Progress Note, Physician Chief Complaint: fever during the night, was started on iv fluids, received Tylenol, cough is persisting - Current Medication List Current Medications: Active Medications Anastrozole (Arimidex -) 1 mg PO DAILY [facility] Last Admin: 04/02/19 11:26 Dose: 1 mg Atorvastatin Calcium (Lipitor -) 80 mg PO HS [facility] Last Admin: 04/01/19 22:17 Dose: 80 mg Bacitracin (Bacitracin -) 1 applic TP DAILY [facility] Last Admin: 04/02/19 10:48 Dose: 1 applic Doxycycline Hyclate (Vibramycin -) 100 mg PO BID@1000,1800 [facility] Last Admin: 04/02/19 10:23 Dose: 100 mg Enoxaparin Sodium (Lovenox -) 60 mg SQ BID [facility] Last Admin: 04/02/19 10:21 Dose: 60 mg Dextrose/Sodium Chloride (D5-1/2ns -) 1,000 mls @ 75 mls/hr IV ASDIR [facility] Last Admin: 04/02/19 10:48 Dose: 75 mls/hr Nystatin (Nystatin Oral Suspension -) 500,000 units PO Q6HPO [facility] Last Admin: 04/02/19 11:24 Dose: 500,000 units Pantoprazole Sodium (Protonix -) 40 mg PO DAILY [facility] Last Admin: 04/02/19 10:23 Dose: 40 mg Polyethylene Glycol (Miralax (For Daily Use) -) 17 gm PO DAILY [facility] Last Admin: 04/02/19 10:22 Dose: Not Given - Objective Vital Signs: Vital Signs Temperature 98.4 F 04/02/19 14:51 Pulse Rate 112 H 04/02/19 14:51 Respiratory Rate 20 04/02/19 14:51 Blood Pressure 138/85 04/02/19 14:51 O2 Sat by Pulse Oximetry (%) 97 04/02/19 09:00 Constitutional: Yes: No Distress, Calm HENT: Yes: Atraumatic, Normocephalic Cardiovascular: Yes: Regular Rate and Rhythm, S1, S2 Respiratory: Yes: Regular, Cough. No: Rales, Rhonchi, SOB Gastrointestinal: Yes: Normal Bowel Sounds, Soft Genitourinary: Yes: WNL Breast(s): Yes: WNL Edema: No Neurological: Yes: Alert, Oriented, Weakness Psychiatric: Yes: Alert, Oriented Labs: CBC, BMP 04/02/19 05:30 04/02/19 05:30 INR, PTT INR 1.16 (0.83-1.09) H 03/28/19 06:00 Problem List - Problems (1) Visual changes Code(s): H53.9 - UNSPECIFIED VISUAL DISTURBANCE (2) Breast mass, right Code(s): N63.10 - UNSPECIFIED LUMP IN THE RIGHT BREAST, UNSPECIFIED QUADRANT (3) Cerebrovascular accident (CVA) Code(s): I63.9 - CEREBRAL INFARCTION, UNSPECIFIED (4) Pulmonary cavitary lesion Code(s): J98.4 - OTHER DISORDERS OF LUNG (5) Thyroid nodule Code(s): E04.1 - NONTOXIC SINGLE THYROID NODULE (6) NSTEMI (non-ST elevated myocardial infarction) Code(s): I21.4 - NON-ST ELEVATION (NSTEMI) MYOCARDIAL INFARCTION (7) Hepatitis B virus infection Code(s): B19.10 - UNSPECIFIED VIRAL HEPATITIS B WITHOUT HEPATIC COMA Qualifiers: Viral hepatitis chronicity: carrier Qualified Code(s): B18.1 - Chronic viral hepatitis B without delta-agent (8) Positive Lyme disease serology Code(s): R76.8 - OTHER SPECIFIED ABNORMAL IMMUNOLOGICAL FINDINGS IN SERUM (9) Radiculitis Code(s): M54.10 - RADICULOPATHY, SITE UNSPECIFIED
[2019-04-02] MEDS ORDERED: DEXTROSE 5%-0.45% SALINE 1,000 ML IV SCH (15:46)
--- NOTE | 2019-04-02 22:26 | PN ---
Progress Note (short form) - Note Progress Note: Patient seen in follow up. No new complaints. No significant events overnight. Inpatient Meds reviewed. Current Medications Generic Name Dose Route Start Last Admin Trade Name Nik PRN Reason Stop Dose Admin Anastrozole 1 mg 04/01/19 13:00 04/03/19 10:23 Arimidex - PO 1 mg DAILY [facility] Administration Atorvastatin Calcium 80 mg 03/30/19 22:00 04/02/19 22:33 Lipitor - PO 80 mg HS [facility] Administration Bacitracin 1 applic 03/31/19 10:00 04/03/19 10:23 Bacitracin - TP 1 applic DAILY [facility] Administration Doxycycline Hyclate 100 mg 03/31/19 18:00 04/03/19 10:22 Vibramycin - PO 100 mg BID@1000,1800 [facility] Administration Enoxaparin Sodium 60 mg 03/31/19 22:00 04/03/19 10:23 Lovenox - SQ 60 mg BID [facility] Administration Nystatin 500,000 units 03/30/19 18:00 04/03/19 05:40 Nystatin Oral Suspension - PO 500,000 units Q6HPO [facility] Administration Pantoprazole Sodium 40 mg 03/31/19 10:00 04/03/19 10:22 Protonix - PO 40 mg DAILY [facility] Administration Polyethylene Glycol 17 gm 03/31/19 10:00 04/03/19 10:22 Miralax (For Daily Use) - PO Not Given DAILY [facility] On Examination: Last Vital Signs Temp Pulse Resp BP Pulse Ox 99.1 F 105 H 20 124/74 95 04/03/19 05:31 04/03/19 05:31 04/03/19 05:31 04/03/19 05:31 04/02/19 21:00 General: In no acute distress, lying comfortably in bed. Extremities: No pallor or icterus. No pedal edema. No palpable lymphadenopathy. CVS: S1, S2, regular, no gallop or murmur. Chest: good air entry bilaterally, clear Abdomen: Non-distended, non-tender, no palpable organomegaly. Neuro: Alert, oriented, non-focal. Labs: CBC, BMP 04/03/19 06:18 04/02/19 05:30 Assessment. Metastatic disease - 2 primaries - ER positive breast cancer and NSCLC - molecular characterization pending (May be EGFR mutation, implying amenable to TKI therapy). Started Armidex for breast cancer. Patient still considering 2nd opinion prior to initiation of therapy for latter. From oncology perspective decision can be made as outpatient.
[2019-04-02] MEDS: ATORVASTATIN CA 80 MG TABLET (FP) PO SCH (22:33)
[2019-04-03] MEDS: NYSTATIN 500,000 UNITS/5 ML SUSPENSION PO SCH ×5 (00:06→23:12)
[2019-04-03 08:50] LABS: BASO % 0.6 % (0-2.0); EOS % 2.6 % (0-4.5); HEMATOCRIT 34.9 % (32.4-45.2); HEMOGLOBIN 11.7 GM/dL (10.7-15.3); LYMPH % 15.1 % (8-40); MCH 30.1 pg (25.7-33.7); MCHC 33.4 g/dl (32.0-36.0); MEAN CELL VOLUME 90.1 fl (80-96); MEAN PLT VOLUME 8.3 fl (7.5-11.1); MONO % 10.4 % (3.8-10.2); NEUT % 71.3 % (42.8-82.8); PLATELET COUNT 130 K/MM3 (134-434); RBC 3.88 M/mm3 (3.60-5.2); RDW 14.1 % (11.6-15.6); WHITE BLOOD COUNT 13.7 K/mm3 (4.0-10.0)
[2019-04-03] MEDS: PANTOPRAZOLE 40 MG TABLET (FP) PO SCH (10:22)
[2019-04-03] MEDS: POLYETHYLENE GLYCOL 3350 119 GM BTL PO SCH (10:22)
[2019-04-03] MEDS: DOXYCYCLINE HYCLATE 100 MG CAPSULE PO SCH ×2 (10:22→17:38)
[2019-04-03] MEDS: ENOXAPARIN NA (PORCINE) 60 MG/0.6 ML DISP.SYRIN SQ SCH ×2 (10:23→23:12)
[2019-04-03] MEDS: ANASTROZOLE 1 MG TABLET PO SCH (10:23)
[2019-04-03] MEDS: BACITRACIN 15 GM TUBE TOPICAL OINTMENT TP SCH (10:23)
--- NOTE | 2019-04-03 11:24 | PN ---
Progress Note, Physician History of Present Illness: PULMONARY ALERT,NO DISTRESS,-SOB,C/O DOUBLE VISION - Current Medication List Current Medications: Active Medications Anastrozole (Arimidex -) 1 mg PO DAILY [facility] Last Admin: 04/03/19 10:23 Dose: 1 mg Atorvastatin Calcium (Lipitor -) 80 mg PO HS [facility] Last Admin: 04/02/19 22:33 Dose: 80 mg Bacitracin (Bacitracin -) 1 applic TP DAILY [facility] Last Admin: 04/03/19 10:23 Dose: 1 applic Doxycycline Hyclate (Vibramycin -) 100 mg PO BID@1000,1800 [facility] Last Admin: 04/03/19 10:22 Dose: 100 mg Enoxaparin Sodium (Lovenox -) 60 mg SQ BID [facility] Last Admin: 04/03/19 10:23 Dose: 60 mg Nystatin (Nystatin Oral Suspension -) 500,000 units PO Q6HPO [facility] Last Admin: 04/03/19 05:40 Dose: 500,000 units Pantoprazole Sodium (Protonix -) 40 mg PO DAILY [facility] Last Admin: 04/03/19 10:22 Dose: 40 mg Polyethylene Glycol (Miralax (For Daily Use) -) 17 gm PO DAILY [facility] Last Admin: 04/03/19 10:22 Dose: Not Given - Objective Vital Signs: Vital Signs Temperature 99.1 F 04/03/19 05:31 Pulse Rate 105 H 04/03/19 05:31 Respiratory Rate 20 04/03/19 05:31 Blood Pressure 124/74 04/03/19 05:31 O2 Sat by Pulse Oximetry (%) 95 04/02/19 21:00 Constitutional: Yes: Well Nourished, Calm Eyes: Yes: WNL HENT: Yes: WNL Neck: Yes: WNL Cardiovascular: Yes: Regular Rate and Rhythm, S1, S2 Respiratory: Yes: CTA Bilaterally Gastrointestinal: Yes: Normal Bowel Sounds, Soft Extremities: Yes: WNL Edema: No Labs: CBC, BMP 04/03/19 06:18 04/02/19 05:30 INR, PTT INR 1.16 (0.83-1.09) H 03/28/19 06:00 Problem List - Problems (1) Breast mass, right Code(s): N63.10 - UNSPECIFIED LUMP IN THE RIGHT BREAST, UNSPECIFIED QUADRANT (2) Cerebrovascular accident (CVA) Code(s): I63.9 - CEREBRAL INFARCTION, UNSPECIFIED (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 Enlarged lymph nodes in the left axilla. 2 hypodense areas in the thyroid gland. Cavitary mass LLL likely malignant - Chemo as per oncology - VTE prophylaxis - lovenox - opthamology eval pending DR SEO
--- NOTE | 2019-04-03 12:11 | PN ---
Progress Note, Physician Chief Complaint: no more fever during the night, iv fluids stopped, received Tylenol, cough is less History of Present Illness: Patient diagnosed with 2 primary cancers, breast cancer and lung cancer started on Arimidex. I discussed in detaiL with family and they are not agreeing to chemotherapy at this time or to the placement of a POrt a catheter. They are interested in taking the patient to [facility] for a second opinion. Daughter understands the risks of delaying treatment, but would like to arrange and start therapy in [place] where the patient's sister and family live. We are awaiting for the EGFR mutation results Treatment for Lyme in progress. - Current Medication List Current Medications: Active Medications Anastrozole (Arimidex -) 1 mg PO DAILY [facility] Last Admin: 04/03/19 10:23 Dose: 1 mg Atorvastatin Calcium (Lipitor -) 80 mg PO HS [facility] Last Admin: 04/02/19 22:33 Dose: 80 mg Bacitracin (Bacitracin -) 1 applic TP DAILY [facility] Last Admin: 04/03/19 10:23 Dose: 1 applic Doxycycline Hyclate (Vibramycin -) 100 mg PO BID@1000,1800 [facility] Last Admin: 04/03/19 10:22 Dose: 100 mg Enoxaparin Sodium (Lovenox -) 60 mg SQ BID [facility] Last Admin: 04/03/19 10:23 Dose: 60 mg Nystatin (Nystatin Oral Suspension -) 500,000 units PO Q6HPO [facility] Last Admin: 04/03/19 05:40 Dose: 500,000 units Pantoprazole Sodium (Protonix -) 40 mg PO DAILY [facility] Last Admin: 04/03/19 10:22 Dose: 40 mg Polyethylene Glycol (Miralax (For Daily Use) -) 17 gm PO DAILY [facility] Last Admin: 04/03/19 10:22 Dose: Not Given - Objective Vital Signs: Vital Signs Temperature 99.1 F 04/03/19 05:31 Pulse Rate 105 H 04/03/19 05:31 Respiratory Rate 20 04/03/19 05:31 Blood Pressure 124/74 04/03/19 05:31 O2 Sat by Pulse Oximetry (%) 95 04/02/19 21:00 Constitutional: Yes: No Distress, Calm Eyes: Yes: Conjunctiva Clear, EOM Intact HENT: Yes: Atraumatic, Normocephalic Neck: Yes: Supple, Trachea Midline Cardiovascular: Yes: Regular Rate and Rhythm, S1, S2 Respiratory: Yes: Regular, CTA Bilaterally Gastrointestinal: Yes: Normal Bowel Sounds, Soft. No: Hepatomegaly, Splenomegaly Extremities: No: Calf Tenderness Edema: No Peripheral Pulses WNL: Yes Neurological: Yes: Alert, Oriented, Confusion, Paresthesia, Weakness, Other ( forgetful). No: Aphasia, Ataxia, Facial Droop, Lethargy, Tingling, Tremors Psychiatric: Yes: Alert, Oriented Labs: CBC, BMP 04/03/19 06:18 04/02/19 05:30 INR, PTT INR 1.16 (0.83-1.09) H 03/28/19 06:00 Problem List - Problems (1) Fever Assessment/Plan: [place] [id number], cultures are negative at 24 hours if at 48 hours blod cultures are negative I will discharge the patient in am so that she can arrange for [facility] care [facility] Code(s): R50.9 - FEVER, UNSPECIFIED Qualifiers: Fever type: due to other condition Qualified Code(s): R50.81 - Fever presenting with conditions classified elsewhere (2) Lung cancer Assessment/Plan: bronchoscopy positive for lung Adeno carcinoma, EGFR genetic testing is pending patient had fever and 2 sets of blood cultures were performed, results are negative at 24 hours WBC is stable although slightly elevated Code(s): C34.90 - MALIGNANT NEOPLASM OF UNSP PART OF UNSP BRONCHUS OR LUNG Qualifiers: Laterality: left Lung location: lower lobe of lung Qualified Code(s): C34.32 - Malignant neoplasm of lower lobe, left bronchus or lung (3) Breast cancer Assessment/Plan: ER+, CT-. HER2 - post biopsy bleeding stopped Arimidex was started resumed Lovenox Code(s): C50.919 - MALIGNANT NEOPLASM OF UNSP SITE OF UNSPECIFIED FEMALE BREAST Qualifiers: Breast location: central portion of breast Estrogen receptor status: positive Laterality: right (4) Visual changes Assessment/Plan: requested Ophthalmology eval which is pending CT scan of brain did not confirm small microhemorrhagic areas in the Sylvian fissure as suspected on the last MRI Lovenox was restarted as per Neuro and will be continued pending further testing and possibly the placement of a Port a cath. At this moment family refuses the port a cat. Code(s): H53.9 - UNSPECIFIED VISUAL DISTURBANCE (5) Cerebrovascular accident (CVA) Assessment/Plan: CVA as presenting symptom on admission using Lovenox anticoagulation pending other possible invasive investigations and parvin placement of a Port a cath Code(s): I63.9 - CEREBRAL INFARCTION, UNSPECIFIED (6) NSTEMI (non-ST elevated myocardial infarction) Assessment/Plan: demand ischemia in the context of infection, poor oral intake, and dehydration Code(s): I21.4 - NON-ST ELEVATION (NSTEMI) MYOCARDIAL INFARCTION (7) Positive Lyme disease serology Assessment/Plan: recent exposure to tick nymph asymptomatic Doxicycline as per ID for a total of 21 days Code(s): R76.8 - OTHER SPECIFIED ABNORMAL IMMUNOLOGICAL FINDINGS IN SERUM (8) Thyroid nodule Assessment/Plan: thyroid status functionally ok nodularity to be investigated as out patient Code(s): E04.1 - NONTOXIC SINGLE THYROID NODULE (9) Hepatitis B virus infection Assessment/Plan: carrier Code(s): B19.10 - UNSPECIFIED VIRAL HEPATITIS B WITHOUT HEPATIC COMA Qualifiers: Viral hepatitis chronicity: carrier Qualified Code(s): B18.1 - Chronic viral hepatitis B without delta-agent (10) Radiculitis Assessment/Plan: left cervical area with paresthesias in the left 2nd, 3rd and 4th fingers Code(s): M54.10 - RADICULOPATHY, SITE UNSPECIFIED
[2019-04-03] MEDS: ATORVASTATIN CA 80 MG TABLET (FP) PO SCH (23:12)
[2019-04-04] MEDS: NYSTATIN 500,000 UNITS/5 ML SUSPENSION PO SCH ×2 (06:27→11:10)
--- NOTE | 2019-04-04 08:35 | DS ---
Physical Examination Vital Signs: Vital Signs Temperature 98.9 F 04/04/19 06:00 Pulse Rate 104 H 04/04/19 06:00 Respiratory Rate 20 04/04/19 06:00 Blood Pressure 115/71 04/04/19 06:00 O2 Sat by Pulse Oximetry (%) 95 04/03/19 09:00 Constitutional: Yes: No Distress, Calm Eyes: Yes: Conjunctiva Clear, EOM Intact HENT: Yes: Atraumatic, Normocephalic Neck: Yes: Supple, Trachea Midline Cardiovascular: Yes: Regular Rate and Rhythm, S1, S2 Respiratory: Yes: Regular, CTA Bilaterally Gastrointestinal: Yes: Normal Bowel Sounds, Soft, Abdomen, Obese. No: Hepatomegaly, Splenomegaly Musculoskeletal: No: Joint Stiffness, Joint Swelling, Muscle Pain Extremities: No: Calf Tenderness Edema: No Peripheral Pulses WNL: Yes Integumentary: Yes: Other (acne lesions on the forehead) Neurological: Yes: Alert, Oriented, Other (forgetful) Psychiatric: Yes: Alert, Oriented Labs: CBC, BMP 04/03/19 06:18 04/02/19 05:30 Discharge Summary Reason For Visit: ELEVATED TROPONIN I LEVEL, LESION OF BRAIN Current Active Problems Alkaline phosphatase elevation (Acute) Breast cancer (Acute) Cerebrovascular accident (CVA) (Acute) Family history of colon cancer (Acute) Fever (Acute) Hepatitis B virus infection (Acute) Lung cancer (Acute) NSTEMI (non-ST elevated myocardial infarction) (Acute) Positive Lyme disease serology (Acute) Posterior cerebral artery syndrome (Acute) Radiculitis (Acute) Thyroid nodule (Acute) Visual changes (Acute) Weight loss (Acute) Procedures: Principal: MRI of brain, CT scan of brain, Bone scan, lung BAL, breast and lymph node biopsy, blood cultures, iv fluids, FRANKIE attempted Hospital Course: Patient diagnosed with 2 primary cancers, breast cancer and lung cancer started on Arimidex. I discussed in detaiL with family and they are not agreeing to chemotherapy at this time or to the placement of a POrt a catheter. They are interested in taking the patient to [facility] for a second opinion. Daughter understands the risks of delaying treatment, but would like to arrange and start therapy in [place] where the patient's sister and family live. We are awaiting for the EGFR mutation results Treatment for Lyme in progress. Blood cultures at 48 hours were negative. Will discharge the patient since they are scheduled for a second evaluation at [facility], will continue Arimidex, complete Doxicycline a total of 21 days, will continue Lovenox bid as instructed by neurology. Family will be educated oin administration of the Lovenox, VNS upon discharge final results of blood cultures will be released to the family once available EGFR genetic marker results are pending Condition: Stable - Instructions Disposition: HOME - Home Medications Comprehensive Discharge Medication List: Ambulatory Orders Anastrozole [Arimidex -] 1 mg PO DAILY #30 tablet 04/04/19 Atorvastatin Ca [Lipitor] 80 mg PO HS #30 tablet 04/04/19 Doxycycline Hyclate [Vibramycin -] 100 mg PO BID@1000,1800 28 Days capsule Enoxaparin [Lovenox -] 60 mg SQ BID 30 Days disp.syrin 04/04/19 Pantoprazole Sodium [Protonix -] 40 mg PO DAILY #30 tablet.ec 04/04/19
--- NOTE | 2019-04-04 10:40 | PN ---
Progress Note (short form) - Note Progress Note: PULMONARY Denies shortness of breath, chest pain. Pt deciding on further treatment. Vital Signs Period Temp Pulse Resp BP Sys/Gay Pulse Ox Last 24 Hr 98.0 F-98.9 F 104-110 18-20 109-131/67-76 Gen: NAD at rest Heart: RRR Lung: decreased breath sounds at the bases Abd: soft, nontender Ext: no edema CBC, BMP 04/03/19 06:18 04/02/19 05:30 Active Medications Anastrozole (Arimidex -) 1 mg PO DAILY [facility] Last Admin: 04/03/19 10:23 Dose: 1 mg Atorvastatin Calcium (Lipitor -) 80 mg PO HS [facility] Last Admin: 04/03/19 23:12 Dose: 80 mg Bacitracin (Bacitracin -) 1 applic TP DAILY [facility] Last Admin: 04/03/19 10:23 Dose: 1 applic Doxycycline Hyclate (Vibramycin -) 100 mg PO BID@1000,1800 [facility] Last Admin: 04/03/19 17:38 Dose: 100 mg Enoxaparin Sodium (Lovenox -) 60 mg SQ BID [facility] Last Admin: 04/03/19 23:12 Dose: 60 mg Nystatin (Nystatin Oral Suspension -) 500,000 units PO Q6HPO [facility] Last Admin: 04/04/19 06:27 Dose: 500,000 units Pantoprazole Sodium (Protonix -) 40 mg PO DAILY [facility] Last Admin: 04/03/19 10:22 Dose: 40 mg Polyethylene Glycol (Miralax (For Daily Use) -) 17 gm PO DAILY [facility] Last Admin: 04/03/19 10:22 Dose: Not Given A/P Acute CVA +Troponins likely Demand Ischemia Breast Ca Metastatic Lung Ca - continue anticoagulation - pt and family to decide on further treatment options - can be discharged from pulmonary standpoint
[2019-04-04] MEDS ORDERED: PT OWN MED DRAWER 7, Y5N ONE (11:02)
[2019-04-04] MEDS: ANASTROZOLE 1 MG TABLET PO SCH (11:10)
[2019-04-04] MEDS: PANTOPRAZOLE 40 MG TABLET (FP) PO SCH (11:10)
[2019-04-04] MEDS: DOXYCYCLINE HYCLATE 100 MG CAPSULE PO SCH (11:11)
[2019-04-04] MEDS: ENOXAPARIN NA (PORCINE) 60 MG/0.6 ML DISP.SYRIN SQ SCH (11:11)
[2019-04-04] MEDS: POLYETHYLENE GLYCOL 3350 119 GM BTL PO SCH (11:11)
[2019-04-04] MEDS: BACITRACIN 15 GM TUBE TOPICAL OINTMENT TP SCH (11:12)
[2019-04-04 14:22] VITALS: BP 118/65; PULSE 114; TEMP 98.7
== END 2019-04-04 15:37 | disposition home or self-care (01) | DRG 64 ==
LOC: JER 00:16 → JERBED 05:25 → JICU 08:36 → J4W 03-21 15:07 → J7W 04-01 13:45
PROVIDERS: ADMIT Internal Medicine; ATTEND Internal Medicine
PROC: 0HBT3ZX Excision of Right Breast, Percutaneous Approach, Diagnostic (ICD-10-PCS; 2019-03-28)
PROC: 0BB78ZX Excision of Left Main Bronchus, Via Natural or Artificial Opening Endoscopic, Diagnostic (ICD-10-PCS; 2019-03-30)
PROC: 0BB38ZX Excision of Right Main Bronchus, Via Natural or Artificial Opening Endoscopic, Diagnostic (ICD-10-PCS; principal; 2019-03-30 13:30)
DX: I63.9 Cerebral infarction, unspecified (principal); G93.41 Metabolic encephalopathy; G93.6 Cerebral edema; D68.59 Other primary thrombophilia; I24.8 Other forms of acute ischemic heart disease; G46.2 Posterior cerebral artery syndrome; C79.51 Secondary malignant neoplasm of bone; C34.32 Malignant neoplasm of lower lobe, left bronchus or lung; C77.3 Secondary and unspecified malignant neoplasm of axilla and upper limb lymph nodes; C50.911 Malignant neoplasm of unspecified site of right female breast; I49.9 Cardiac arrhythmia, unspecified; M89.9 Disorder of bone, unspecified; E04.1 Nontoxic single thyroid nodule; H53.9 Unspecified visual disturbance; M54.10 Radiculopathy, site unspecified; R76.8 Other specified abnormal immunological findings in serum; R29.705 NIHSS score 5; E78.2 Mixed hyperlipidemia
CPT/HCPCS: 19083; 19084; 36415; 70450-TC; 70496-TC; 70498-TC; 70544-TC; 70547-TC; 70553-TC; 71045-TC-FY; 71046-TC-FY; 71250-TC; 72156-TC; 72157-TC; 72158-TC; 73552-TC-LT-FY; 74176-TC; 76000-TC-FY; 76641-TC-50; 76700-TC; 77066-TC; 78306-TC; 80048; 80053; 80061; 81003; 82105; 82378; 82550; 82977; 83036; 83520; 83721; 83735; 84080; 84100; 84439; 84443; 84484; 85025; 85027; 85610; 85651; 86038; 86140; 86256; 86300; 86480; 86618; 86704; 86706; 86707; 86708; 86709; 86803; 87040; 87070; 87077; 87086; 87102; 87116; 87205; 87206; 87210; 87340; 87389; 87516; 87556; 87899; 87912; 88104; 88108; 88305-TC; 88341-TC; 93005; 93010; 93306-TC; 93970-TC; 94010; 94760; 97116-GP; 97162-GP; 99284-25; A4648; A9503; A9579; G0279-TC; J1644; J7030